=== PATIENT | female | born 1995 ===

== ENCOUNTER 2016-07-30 11:54 | Observation (INO) | payer OTHER ==
[2016-07-30 11:55] VITALS: BMI 24.9
[2016-07-30] MEDS ORDERED: Sodium Chloride 0.9% 1,000 ML IV ONE (12:20)
--- NOTE | 2016-07-30 12:28 | C.PDOC ---
History Of Present Illness Patient is a 20 y/o female, with PMHx of IDDM, that presents to the ED for evaluation of right flank pain associated with nausea and vomiting since yesterday. Pt notes multiple episodes of watery vomitous. Denies taking any OTC meds. Patient was admitted x 2 in April for pyelonephritis, with MRI showing possible small abscess in the right kidney. Patient was discharged home, with IV antibiotics. Otherwise, denies any diarrhea, urinary symptoms or any other associated symptoms. Time Seen by Provider: 07/30/16 12:09 Chief Complaint (Nursing): Abdominal Pain History Per: Patient History/Exam Limitations: no limitations Onset/Duration Of Symptoms: Days (1) Current Symptoms Are (Timing): Still Present Radiation Of Pain To:: Flank (right) Quality Of Discomfort: "Pain" Associated Symptoms: Nausea, Vomiting, Loss Of Appetite. denies: Chills, Diarrhea, Chest Pain, Constipation, Urinary Symptoms Exacerbating Factors: None Alleviating Factors: None Recent travel outside of the [place]: No Additional History Per: Patient Abnormal Vaginal Bleeding: No Past Medical History Reviewed: Historical Data, Nursing Documentation, Vital Signs Vital Signs: Last Vital Signs Temp 98.6 F 07/31/16 15:00 Pulse 93 H 07/31/16 15:00 Resp 20 07/31/16 15:00 BP 143/88 07/31/16 15:00 Pulse Ox 100 08/01/16 09:23 - Medical History PMH: Asthma, Diabetes (type 1) Other PMH: Pyelonephritis - [facility] Procedures FLUOROSCOPY OF SUPERIOR VENA CAVA, GUIDANCE (05/11/16) INFLUENZA VACCINATION (04/18/14) INJECT INSULIN (02/05/15) INJECT/INFUSE NEC (02/05/15) INSERTION OF INFUSION DEV INTO SUP VENA CAVA, PERC APPROACH (05/11/16) INTRODUCTION OF SERUM/TOX/VACCINE INTO MUSCLE, PERC APPROACH (04/11/16) ULTRASONOGRAPHY OF RIGHT UPPER EXTREMITY VEINS, GUIDANCE (05/11/16) Family History: States: Unknown Family Hx - Social History Hx Tobacco Use: No Hx Alcohol Use: No Hx Substance Use: No - Immunization History Hx Tetanus Toxoid Vaccination: Yes Review Of Systems Except As Marked, All Systems Reviewed And Found Negative. Constitutional: Negative for: Fever, Chills Gastrointestinal: Positive for: Nausea, Vomiting. Negative for: Diarrhea, Constipation Genitourinary: Negative for: Dysuria, Frequency, Hematuria Musculoskeletal: Positive for: Back Pain (right flank pain) Physical Exam - Physical Exam Appears: Non-toxic, In Acute Distress (In moderate distress) Skin: Normal Color, Warm, Dry Head: Atraumatic, Normacephalic Eye(s): bilateral: Normal Inspection Neck: Supple Chest: Symmetrical Cardiovascular: Rhythm Regular Respiratory: Normal Breath Sounds, No Rales, No Rhonchi, No Wheezing Gastrointestinal/Abdominal: Soft, No Tenderness Back: CVA Tenderness (right) Neurological/Psych: Oriented x3, Normal Speech, Normal Cognition ED Course And Treatment - Laboratory Results Result Diagrams: 07/30/16 13:01 07/30/16 13:01 O2 Sat by Pulse Oximetry: 100 (on RA) Pulse Ox Interpretation: Normal - Radiology CXR: Interpreted by Me CXR Interpretation: No: Infiltrates Progress Note: Labs, CXR ordered and reviewed. Patient was treated with IV fluids, Zofran inj, Pepcid IVP, and Toradol IVP. On reassessment, patient reports no vomiting pain improved. Medical Decision Making Medical Decision Making: Review of old records show cultures grew e coli, sensitive, to most abx Started on rocephin In view of the ? of abscess and recurrent infection will need need admission for further treatment Case discussed with dr César Rodriguez (covering) dr Espinal, she agrees with plan Disposition - Disposition Disposition: HOSPITALIZED Disposition Time: 00:00 Condition: FAIR - Clinical Impression Clinical Impression: Abdominal pain, Insulin dependent diabetes mellitus, Pyelonephritis - Scribe Statement The provider has reviewed the documentation as recorded by the Nasra Sotomayor Provider Attestation: All medical record entries made by the Nasra were at my direction and personally dictated by me. I have reviewed the chart and agree that the record accurately reflects my personal performance of the history, physical exam, medical decision making, and the department course for this patient. I have also personally directed, reviewed, and agree with the discharge instructions and disposition.
[2016-07-30] MEDS ORDERED: Sodium Chloride 0.9% 1,000 ML ONE (12:31)
[2016-07-30 12:58] LABS: VENOUS BLOOD GAS PCO2 52 mmHg (40-60)
[2016-07-30 13:05] LABS: BASO # 0.1 K/uL (0.0-0.2); BASO % 0.7 % (0.0-2.0); HEMATOCRIT 40.2 % (34.0-47.0); LYMPH # 1.8 K/uL (1.0-4.3); LYMPH % 11.8 % (20.0-40.0); MEAN CELL VOLUME 88.5 fL (81.0-99.0); MEAN CORPUSCULAR HEMOGLOBIN 31.4 pg (27.0-31.0); MEAN CORPUSCULAR HGB CONC 35.5 g/dL (33.0-37.0); MEAN PLATELET VOLUME 7.7 fL (7.2-11.7); MONO # 0.8 K/uL (0.0-0.8); NRBC % 0.1 % (0.0-2.0); RED CELL DISTRIBUTION WIDTH 13.3 % (11.5-14.5); WHITE BLOOD COUNT 15.7 K/uL (4.8-10.8)
[2016-07-30 13:23] LABS: RBC URINE 16 /hpf (0-3); URINE BACTERIA RARE (<OCC); URINE BILIRUBIN NEGATIVE (NEGATIVE); URINE BLOOD 2+ (NEGATIVE); URINE COLOR Yellow (YELLOW); URINE GLUCOSE (UA) NORMAL (Normal); URINE KETONE 1+ mg/dL (NEGATIVE); URINE LEUKOCYTE ESTERASE TRACE Leu/uL (Negative); URINE PROTEIN 2+ mg/dL (NEGATIVE); WBC URINE 13 /hpf (0-5)
[2016-07-30 13:25] LABS: CHLORIDE 93 mmol/L (98-107); SODIUM 142 mmol/L (132-148)
[2016-07-30 13:28] LABS: ALB/GLOB RATIO 1.2 (1.0-2.1); ALKALINE PHOSPHATASE 76 U/L (38-126); ALT/SGPT 38 U/L (9-52); AST/SGOT 36 U/L (14-36); BILIRUBIN,TOTAL 2.2 mg/dL (0.2-1.3); BLOOD UREA NITROGEN 9 mg/dL (7-17); CARBON DIOXIDE 29 mmol/L (22-30); GFR AFRICAN-AMERICAN > 60; GLUCOSE,RANDOM 152 mg/dL (65-105); TOTAL PROTEIN 8.3 g/dL (6.3-8.3)
[2016-07-30 13:29] LABS: CALCIUM 8.5 mg/dl (8.6-10.4)
--- NOTE | 2016-07-30 13:29 | RAD ---
PROCEDURE: CHEST RADIOGRAPH, 1 VIEW HISTORY: Diabetic COMPARISON: Comparison is made to the previous study dated 02/06/2016 FINDINGS: LUNGS: No evidence of new infiltrate or consolidation in the lungs PLEURA: No pneumothorax or pleural fluid seen. CARDIOVASCULAR: Normal. OSSEOUS STRUCTURES: No significant abnormalities. VISUALIZED UPPER ABDOMEN: Normal. OTHER FINDINGS: None. IMPRESSION: No active disease.
[2016-07-30 13:33] LABS: POTASSIUM 3.5 mmol/L (3.6-5.2)
[2016-07-30] MEDS ORDERED: cefTRIAXone IV 1 gm in Dextros 1 GM in Dextrose 5% In Water 50 ML IVPB STA (13:36)
[2016-07-30] MEDS ORDERED: cefTRIAXone IV 1 gm in Dextros 50 ML IVPB ONE (14:10)
[2016-07-30] MEDS: Sodium Chloride 0.45% 1,000 ML IV SCH (14:46)
[2016-07-30 16:34] VITALS: RESP 20
[2016-07-30] MEDS: (Novolog) Insulin Aspart, Recombinant 100 u/ml 10 ml vial SC SCH (18:51)
[2016-07-30] MEDS ORDERED: (Lantus) Insulin Glargine, Recombinant SC SCH (22:00)
[2016-07-31] MEDS: Sodium Chloride 0.45% 1,000 ML IV SCH ×2 (05:00→17:35)
[2016-07-31] MEDS: (Novolog) Insulin Aspart, Recombinant 100 u/ml 10 ml vial SC SCH (09:06)
--- NOTE | 2016-07-31 09:36 | CT ---
PROCEDURE: CT Abdomen and Pelvis without intravenous contrast HISTORY: dx pyelonephritis COMPARISON: 03/30/2016 TECHNIQUE: Multidetector CT scan of the abdomen and pelvis was performed without administration of intravenous contrast. Oral contrast was not administered. Coronal and sagittal reformatted images were obtained. Radiation dose: Total exam DLP = 778.29 mGy-cm. FINDINGS: LOWER THORAX: The lung bases are clear. LIVER: The liver is normal in size. No gross lesion or ductal dilatation. GALLBLADDER AND BILE DUCTS: No calcified gallstones. PANCREAS: Normal in size. No gross lesion or ductal dilatation. SPLEEN: Normal in size. ADRENALS: Both adrenal glands are normal in size without discrete nodule. KIDNEYS AND URETERS: Both kidneys are normal in size. There is mild perinephric stranding in the inferior pole of the right kidney. No hydronephrosis. No solid mass. VASCULATURE: Normal in caliber. No aortic aneurysm. BOWEL: Normal in caliber. No obstruction. No gross mural thickening. APPENDIX: Normal appendix. PERITONEUM: No free fluid. No free air. LYMPH NODES: No enlarged lymph nodes. BLADDER: Decompressed. REPRODUCTIVE: The uterus is normal in size. There are no adnexal mass. BONES: No acute fracture. 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 OTHER FINDINGS: None. IMPRESSION: Please note this examination is limited in the absence of intravenous contrast, specifically the clinical question of pyelonephritis cannot be definitively answered on the CT examination in the absence of intravenous contrast. Mild right lower pole perinephric stranding could represent pyelonephritis in the appropriate clinical setting. No evidence of hydronephrosis or nephrolithiasis.
[2016-07-31] MEDS ORDERED: Potassium Chloride 10 mEq 100 ML IVPB ONE (11:44)
[2016-07-31] MEDS ORDERED: cefTRIAXone IV 1 gm in Dextros 1 GM in Dextrose 5% In Water 50 ML IVPB SCH (11:45)
[2016-07-31] MEDS ORDERED: cefTRIAXone IV 1 gm in Dextros 50 ML IVPB SCH (13:00)
[2016-07-31 17:03] VITALS: BP 143/88; PULSE 93; TEMP 98.6
[2016-07-31] MEDS ORDERED: Benzocaine/Menthol (Cepacol) Lozenge MT SCH (18:00)
--- NOTE | 2016-07-31 18:18 | CON ---
DATE: 07/31/2016 The patient is a 20-year-old was admitted for the second time during last month with right flank pain radiating to the back. The patient was here in the hospital 1 month ago with pyelonephritis, vomiti ng, and flank pain. Treated, discharged, came back with the same symptoms. The patient has no dysur ia, or frequency, or urgency prior to this admission. Two days ago the patient started having right flank pain and vomiting. White count elevated. Urine showed few WBC and RBCs. PHYSICAL EXAMINATION: ABDOMEN: Soft. Right flank tenderness. No kidney palpable. CT scan of the abdomen and pelvis revealed some inflammation in the lower pole of the right kidney. The rest of the kidney normal. No evidence of any abscess. The patient on treatment with Rocephin. IMPRESSION: Right pyelonephritis. PLAN: Continue treatment, and patient needs to have a followup culture, and treat the patient until all the symptoms subside. Doretha Buck MD cc: 43 TT: 07/31/2016 18:17:50 Confirmation # [id number] Dictation # [id number] ned
--- NOTE | 2016-07-31 18:28 | CP.PCM.HP ---
History of Present Illness - History of Present Illness History of Present Illness: came in to er pain flank nase[place] and vomiting last night was admited for uti Present on Admission - Present on Admission Any Indicators Present on Admission: No Review of Systems - Review of Systems Systems not reviewed;Unavailable: Acuity of Condition - Constitutional Constitutional: Fatigue - EENT Eyes: As Per HPI Ears: As Per HPI Nose/Mouth/Throat: As Per HPI, Sore Throat - Breasts Breasts: As Per HPI - Cardiovascular Cardiovascular: As Per HPI - Respiratory Respiratory: As Per HPI - Gastrointestinal Gastrointestinal: Abdominal Pain - Genitourinary Genitourinary: Dysuria, Freq UTI - Reproductive: Female Reproductive:Female: As Per HPI - Menstruation Menstruation: As Per HPI - Musculoskeletal Musculoskeletal: As Per HPI - Integumentary Integumentary: As Per HPI - Neurological Neurological: As Per HPI - Psychiatric Psychiatric: As Per HPI - Endocrine Endocrine: Polyuria - Hematologic/Lymphatic Hematologic: As Per HPI Past Patient History - Infectious Disease Hx of Infectious Diseases: None - Tetanus Immunizations Tetanus Immunization: Unknown - Past Medical History & Family History Past Medical History?: Yes - Past Social History Smoking Status: Never Smoked - CARDIAC Hx Cardiac Disorders: No Hx Atrial Fibrillation: No Hx Cardia Arrhythmia: No Hx Congestive Heart Failure: No - PULMONARY Hx Respiratory Disorders: Yes Hx Asthma: Yes - NEUROLOGICAL Hx Neurological Disorder: No - HEENT Hx HEENT Problems: No - RENAL Hx Chronic Kidney Disease: Yes (''KIDNEY INFECTION'') Hx Dialysis: No Hx Kidney Stones: No Hx Neurogenic Bladder: No Hx Pyelonephritis: Yes - ENDOCRINE/METABOLIC Hx Endocrine Disorders: Yes Hx Diabetes Mellitus Type 1: Yes - HEMATOLOGICAL/ONCOLOGICAL Hx Blood Disorders: No Hx Human Immunodeficiency Virus (HIV): No - INTEGUMENTARY Hx Dermatological Problems: No - MUSCULOSKELETAL/RHEUMATOLOGICAL Hx Musculoskeletal Disorders: No Hx Falls: No - GASTROINTESTINAL Hx Gastrointestinal Disorders: Yes Hx Nausea: Yes Hx Vomiting: Yes - GENITOURINARY/GYNECOLOGICAL Hx Genitourinary Disorders: Yes Hx Urinary Tract Infection: Yes - PSYCHIATRIC Hx Psychophysiologic Disorder: No Hx Substance Use: No - SURGICAL HISTORY Hx Surgeries: No - ANESTHESIA Hx Anesthesia: No Hx Anesthesia Reactions: No Hx Malignant Hyperthermia: No Has any member of the family had a problem w/ anesthesia?: No Meds Allergies/Adverse Reactions: Allergies Allergy/AdvReac Type Severity Reaction Status Date / Time shellfish derived Allergy SWELLING Verified 03/05/17 12:03 Physical Exam - Constitutional Appears: Non-toxic - Head Exam Head Exam: ATRAUMATIC - Eye Exam Eye Exam: Normal appearance Pupil Exam: Fixed - ENT Exam ENT Exam: Mucous Membranes Moist - Neck Exam Neck exam: Positive for: Full Rom - Respiratory Exam Respiratory Exam: Clear to Auscultation Bilateral - Cardiovascular Exam Cardiovascular Exam: REGULAR RHYTHM - GI/Abdominal Exam GI & Abdominal Exam: Normal Bowel Sounds, Tenderness (ruq ) - Rectal Exam Rectal Exam: NORMAL INSPECTION - Exam Exam: NORMAL INSPECTION Results - Vital Signs Recent Vital Signs: Last Vital Signs Temp 98.6 F 07/31/16 15:00 Pulse 93 H 07/31/16 15:00 Resp 20 07/31/16 15:00 BP 143/88 07/31/16 15:00 Pulse Ox 98 07/31/16 15:00 - Labs Result Diagrams: 07/30/16 13:01 07/30/16 13:01 Labs: Laboratory Results - last 24 hr 07/30/16 07/31/16 07/31/16 21:08 07:28 11:34 POC Glucose (mg/dL) 153 H 136 H 140 H 07/31/16 16:46 POC Glucose (mg/dL) 178 H Assessment & Plan - Assessment and Plan (Free Text) Assessment: uti abd pain - Date & Time Date: 07/31/16 Time: 18:32
[2016-08-01 09:16] VITALS: O2SAT 100
[2016-08-01] MEDS ORDERED: Pneumococcal 23-Valent Vaccine IM ONE (10:00)
[2016-08-01] MEDS ORDERED: Influenza Virus Vaccine 45 mcg/0.5 ml Syr IM ONE (10:00)
== END 2016-07-31 18:30 | disposition left against medical advice (07) ==
LOC: C.ER 11:54 → C.9E 13:42 → INTOOBSV 13:42 → C.3T 14:46
PROVIDERS: ADMIT Internal Medicine; ATTEND Internal Medicine
DX: N39.0 Urinary tract infection, site not specified (principal); N11.9 Chronic tubulo-interstitial nephritis, unspecified; E10.9 Type 1 diabetes mellitus without complications; J45.909 Unspecified asthma, uncomplicated; Z79.4 Long term (current) use of insulin; Z87.440 Personal history of urinary (tract) infections
CPT/HCPCS: 71010; 74176; 80053; 81001; 82009; 82803; 82948; 84703; 85025; 87040; 87086; 96361; 96365; 96375; 99285; C9113; G0378; J0696; J1885; J2270; J2405; J3480; J7030; J7040

== ENCOUNTER 2016-09-23 13:35 | Inpatient (IN) | payer MEDICAID, OTHER ==
[2016-09-23 13:36] VITALS: BMI 24.9
[2016-09-23] MEDS ORDERED: Sodium Chloride 0.9% 1,000 ML IV STA (14:20)
[2016-09-23 14:28] LABS: RBC URINE 2 /hpf (0-3); URINE BILIRUBIN NEGATIVE (NEGATIVE); URINE BLOOD NEGATIVE (NEGATIVE); URINE COLOR Amber (YELLOW); URINE GLUCOSE (UA) NORMAL (Normal); URINE KETONE NEGATIVE (NEGATIVE); URINE LEUKOCYTE ESTERASE NEG Leu/uL (Negative); URINE PROTEIN 2+ mg/dL (NEGATIVE); WBC URINE 1 /hpf (0-5)
[2016-09-23] MEDS ORDERED: Morphine 4 MG/ML VIAL ONE (14:29)
[2016-09-23 14:34] LABS: BASO % 0.3 % (0.0-2.0); EOS % 0.1 % (0.0-4.0); HEMATOCRIT 43.2 % (34.0-47.0); LYMPH # 1.2 K/uL (1.0-4.3); LYMPH % 9.6 % (20.0-40.0); MEAN CELL VOLUME 89.8 fL (81.0-99.0); MEAN CORPUSCULAR HEMOGLOBIN 30.9 pg (27.0-31.0); MEAN CORPUSCULAR HGB CONC 34.4 g/dL (33.0-37.0); MEAN PLATELET VOLUME 8.3 fL (7.2-11.7); MONO # 0.6 K/uL (0.0-0.8); MONO % 4.8 % (0.0-10.0); PLATELET COUNT 271 K/uL (130-400); RED CELL DISTRIBUTION WIDTH 14.3 % (11.5-14.5)
[2016-09-23 14:42] LABS: CHLORIDE 93 mmol/L (98-107)
[2016-09-23 14:43] LABS: ABG ALLEN TEST N; DRAW SITE VBG; POTASSIUM 3.7 mmol/L (3.6-5.2); SODIUM 139 mmol/L (132-148); VENOUS BLOOD GAS BASE EXCESS 9.6 mmol/L (0.0-2.0); VENOUS BLOOD GAS PCO2 61 mmHg (40-60); VENOUS BLOOD PH 7.39 (7.32-7.43)
[2016-09-23 14:45] LABS: ALB/GLOB RATIO 1.3 (1.0-2.1); AMYLASE 108 U/L (30-110); AST/SGOT 39 U/L (14-36); BILIRUBIN,TOTAL 1.3 mg/dL (0.2-1.3); BLOOD UREA NITROGEN 10 mg/dL (7-17); CARBON DIOXIDE 31 mmol/L (22-30); GFR AFRICAN-AMERICAN > 60; TOTAL PROTEIN 8.3 g/dL (6.3-8.3)
[2016-09-23 14:46] LABS: ALKALINE PHOSPHATASE 54 U/L (38-126); ALT/SGPT 24 U/L (9-52); GLUCOSE,RANDOM 239 mg/dL (65-105)
[2016-09-23 15:34] LABS: NEUTROPHIL 91 % (50-75); TOTAL CELLS COUNTED 100
--- NOTE | 2016-09-23 16:03 | C.PDOC ---
History Of Present Illness 20 year old female presents to the ED with complaints of right flank pain, weakness, and nausea for one week. She is well known to this ED, she is diabetic and has multiple admission for myelo arthritis. Patient states urine is cloudy and denies fever, or any other complaints at this time. Chief Complaint (Nursing): Female Genitourinary History Per: Patient History/Exam Limitations: no limitations Onset/Duration Of Symptoms: Days (one week ) Current Symptoms Are (Timing): Still Present Recent travel outside of the [place]: No PMH Reviewed: Historical Data, Nursing Documentation, Vital Signs - Medical History PMH: GI Disorders, Resp Disorders Denies: Neuro Disorder, HEENT Problems, MS Disorders - Family History Family History: States: Unknown Family Hx - Immunization History Hx Tetanus Toxoid Vaccination: Yes Hx Influenza Vaccination: No Hx Pneumococcal Vaccination: No Review Of Systems Constitutional: Positive for: Weakness. Negative for: Fever, Chills, Sweats Gastrointestinal: Positive for: Nausea. Negative for: Vomiting, Diarrhea Genitourinary: Positive for: Other (patient notes cloudy urine ) Musculoskeletal: Positive for: Back Pain (right flank pain ). Negative for: Shoulder Pain ED Course And Treatment - Laboratory Results Result Diagrams: 09/23/16 14:30 09/23/16 14:30 O2 Sat by Pulse Oximetry: 100
--- NOTE | 2016-09-23 16:09 | US ---
HISTORY: RUQ/flank pain COMPARISON: CT abdomen and pelvis without contrast performed 07/31/16 TECHNIQUE: Sonographic evaluation of the right upper quadrant of the abdomen. FINDINGS: Examination limited by bowel gas. LIVER: Measures 19.1 cm in length. Echogenic liver may be seen in setting of hepatic parenchymal disease or fatty infiltration. No focal hepatic mass identified. The main portal vein appears patent with normal directional flow. No intrahepatic bile duct dilatation. GALLBLADDER: Gallstones. Gallbladder wall appears top normal in thickness measuring approximately 3 mm. Positive sonographic Mcrae's sign as assessed by the oxide furnace tender. COMMON BILE DUCT: Measures 7 mm, mildly dilated. PANCREAS: Not well-visualized. RIGHT KIDNEY: Measures 14.2 x 3.4 x 4.1 cm. No obstructing calculus or hydronephrosis. AORTA: Limited visualization appears grossly unremarkable. IVC: Limited visualization appears grossly unremarkable. OTHER FINDINGS: None . IMPRESSION: Hepatomegaly. Echogenic liver may be seen in setting of hepatic parenchymal disease or fatty infiltration. Cholelithiasis. Minimally dilated common bile duct. Positive sonographic Mcrae's sign as assessed by the oxide furnace tender. Correlate clinically.
--- NOTE | 2016-09-23 16:16 | C.PDOC ---
History Of Present Illness 20 year old female presents to the ED with complaints of right flank pain, weakness, and nausea for one week. She is well known to this ED, she is diabetic , has a history of gall stones, and has multiple admission for myelo arthritis with the last admission at the beginning of July. Patient states urine is cloudy and denies fever, or any other complaints at this time. Chief Complaint (Nursing): Female Genitourinary History Per: Patient History/Exam Limitations: no limitations Onset/Duration Of Symptoms: Days Current Symptoms Are (Timing): Still Present Past Medical History Reviewed: Historical Data, Nursing Documentation, Vital Signs Vital Signs: Last Vital Signs Temp 98.2 F 09/23/16 13:52 Pulse 88 09/23/16 17:03 Resp 18 09/23/16 17:03 BP 150/93 H 09/23/16 17:03 Pulse Ox 99 09/23/16 17:03 - Medical History PMH: Asthma, Diabetes (type 1), Chronic Kidney Disease (''KIDNEY INFECTION'') - [facility] Procedures FLUOROSCOPY OF SUPERIOR VENA CAVA, GUIDANCE (05/11/16) INFLUENZA VACCINATION (04/18/14) INJECT INSULIN (02/05/15) INJECT/INFUSE NEC (02/05/15) INSERTION OF INFUSION DEV INTO SUP VENA CAVA, PERC APPROACH (05/11/16) INTRODUCTION OF SERUM/TOX/VACCINE INTO MUSCLE, PERC APPROACH (04/11/16) ULTRASONOGRAPHY OF RIGHT UPPER EXTREMITY VEINS, GUIDANCE (05/11/16) Family History: States: Unknown Family Hx - Social History Hx Tobacco Use: No Hx Alcohol Use: No Hx Substance Use: No - Immunization History Hx Tetanus Toxoid Vaccination: Yes Hx Influenza Vaccination: No Hx Pneumococcal Vaccination: No Review Of Systems Constitutional: Negative for: Fever, Chills, Sweats Gastrointestinal: Positive for: Nausea. Negative for: Vomiting, Diarrhea Genitourinary: Positive for: Other (patient notes cloudy urine) Musculoskeletal: Positive for: Back Pain (right flank pain) Physical Exam - Physical Exam Appears: Non-toxic, No Acute Distress Skin: Warm, Dry Head: Normacephalic Eye(s): bilateral: Normal Inspection Oral Mucosa: Moist Neck: Normal ROM, Supple Chest: Symmetrical, No Deformity Cardiovascular: Rhythm Regular Respiratory: No Accessory Muscle Use, No Rales, No Rhonchi, No Stridor, No Wheezing Gastrointestinal/Abdominal: Soft, No Tenderness, No Distention, No Guarding, No Rebound Extremity: Normal ROM, No Tenderness Neurological/Psych: Oriented x3 ED Course And Treatment - Laboratory Results Result Diagrams: 09/23/16 14:30 09/23/16 14:30 O2 Sat by Pulse Oximetry: 100 - CT Scan/US US ABDOMEN LIMITED Other Rad Studies (CT/US): Read By Radiologist, Radiology Report Reviewed CT/US Interpretation: HISTORY: RUQ/flank pain. COMPARISON: CT abdomen and pelvis without contrast performed 07/31/16. TECHNIQUE: Sonographic evaluation of the right upper quadrant of the abdomen. FINDINGS: Examination limited by bowel gas. LIVER: Measures 19.1 cm in length. Echogenic liver may be seen in setting of hepatic parenchymal disease or fatty infiltration. No focal hepatic mass identified. The main portal vein appears patent with normal directional flow. No intrahepatic bile duct dilatation. GALLBLADDER: Gallstones. Gallbladder wall appears top normal in thickness measuring approximately 3 mm. Positive sonographic Mcrae's sign as assessed by the passenger elevator operator. COMMON BILE DUCT: Measures 7 mm, mildly dilated. PANCREAS: Not well-visualized. RIGHT KIDNEY: Measures 14.2 x 3.4 x 4.1 cm. No obstructing calculus or hydronephrosis. AORTA: Limited visualization appears grossly unremarkable. IVC: Limited visualization appears grossly unremarkable. OTHER FINDINGS: None . IMPRESSION: Hepatomegaly. Echogenic liver may be seen in setting of hepatic parenchymal disease or fatty infiltration. Cholelithiasis. Minimally dilated common bile duct. Positive sonographic Mcrae's sign as assessed by the passenger elevator operator. Correlate clinically. Progress Note: was contacted, accepted patient to her service. - Physician Consult Information Physician Contacted: Juventino Green Outcome Of Conversation: admit to medicine, will come as a consult Disposition - Disposition Disposition: HOSPITALIZED Disposition Time: 16:42 Condition: FAIR - Clinical Impression Clinical Impression: Vomiting, RUQ abdominal pain, Cholelithiasis Decision To Admit - Pt Status Changed To: Hospital Disposition Of: Observation - . Bed Request Type: Regular Admitting Physician: Elyssa Rodriguez Patient Diagnosis: Vomiting, RUQ abdominal pain, Cholelithiasis
[2016-09-23] MEDS: (Novolog) Insulin Aspart, Recombinant 100 u/ml 10 ml vial SC SCH ×2 (19:27→22:01)
--- NOTE | 2016-09-23 21:30 | CP.PCM.CON ---
<Rigo Biggs - Last Filed: 09/23/16 22:47> History of Present Illness - History of Present Illness History of Present Illness: General Surgery Consult Re: Cholelithiasis HPI: 20F presented to ER C/O R flank pain, weakness, and nausea x 1 week. Stated pain was similar to prior episodes of pyelonephritis. Pain now in more epigastric and RUQ. Currently denies F/C, N/V/D. Last BM 3days ago, was normal. Pt has no other C/O at this time. PMH: Hx Pyelonephritis, Asthma, DM type 1, Hx of cholelithiasis PSH: Denies SH: Smokes 2 cigarettes/day, occasional EtOH, no drug use All: NKDA Meds: See MAR Review of Systems - Review of Systems All systems: reviewed and no additional remarkable complaints except (as per HPI ) Past Patient History - Infectious Disease Hx of Infectious Diseases: None - Tetanus Immunizations Tetanus Immunization: Unknown - Past Medical History & Family History Past Medical History?: Yes - Past Social History Smoking Status: Never Smoked - CARDIAC Hx Cardiac Disorders: No Hx Atrial Fibrillation: No Hx Cardia Arrhythmia: No Hx Congestive Heart Failure: No - PULMONARY Hx Asthma: Yes - NEUROLOGICAL Hx Neurological Disorder: No - HEENT Hx HEENT Problems: No - RENAL Hx Chronic Kidney Disease: Yes (''KIDNEY INFECTION'') - ENDOCRINE/METABOLIC Hx Endocrine Disorders: Yes Hx Diabetes Mellitus Type 1: Yes - HEMATOLOGICAL/ONCOLOGICAL Hx Blood Disorders: No - INTEGUMENTARY Hx Dermatological Problems: No - MUSCULOSKELETAL/RHEUMATOLOGICAL Hx Musculoskeletal Disorders: No Hx Falls: No - GASTROINTESTINAL Hx Gastrointestinal Disorders: Yes Hx Nausea: Yes Hx Vomiting: Yes - GENITOURINARY/GYNECOLOGICAL Hx Genitourinary Disorders: Yes Hx Urinary Tract Infection: Yes - PSYCHIATRIC Hx Substance Use: No - SURGICAL HISTORY Hx Surgeries: No - ANESTHESIA Hx Anesthesia: No Hx Anesthesia Reactions: No Hx Malignant Hyperthermia: No Meds Allergies/Adverse Reactions: Allergies Allergy/AdvReac Type Severity Reaction Status Date / Time shellfish derived Allergy SWELLING Verified 07/31/16 20:39 - Medications Medications: Current Medications Ceftriaxone Sodium 1 gm/ (Sodium Chloride) 100 mls @ 100 mls/hr IVPB DAILY [facility] Insulin Aspart (Novolog) 3 unit SC ACHS [facility] Last Admin: 09/23/16 19:27 Dose: 3 unit Insulin Glargine (Lantus) 10 unit SC HS [facility] Morphine Sulfate (Morphine) 1 mg IV Q6 PRN Last Admin: 09/23/16 19:28 Dose: 1 mg Physical Exam - Constitutional Appears: Non-toxic, No Acute Distress - Head Exam Head Exam: ATRAUMATIC, NORMOCEPHALIC - Eye Exam Eye Exam: EOMI. absent: Scleral icterus - ENT Exam ENT Exam: Mucous Membranes Moist Additional comments: trachea midline - Respiratory Exam Respiratory Exam: NORMAL BREATHING PATTERN. absent: Respiratory Distress - Cardiovascular Exam Cardiovascular Exam: RRR, +S1, +S2 - GI/Abdominal Exam GI & Abdominal Exam: Guarding (mildRUQ), Soft, Tenderness (in RUQ and epigastrum ). absent: Distended, Firm, Rebound, Rigid - Rectal Exam Rectal Exam: Deferred - Extremities Exam Extremities exam: Positive for: normal capillary refill. Negative for: calf tenderness, pedal edema - Back Exam Back exam: absent: CVA tenderness (L), CVA tenderness (R) - Neurological Exam Neurological exam: Alert, Oriented x3 - Psychiatric Exam Psychiatric exam: Normal Affect, Normal Mood - Skin Skin Exam: Dry, Warm Results - Vital Signs Recent Vital Signs: Last Vital Signs Temp 98.2 F 09/23/16 13:52 Pulse 88 09/23/16 17:03 Resp 18 09/23/16 17:03 BP 150/93 H 09/23/16 17:03 Pulse Ox 100 09/23/16 18:01 - Labs Result Diagrams: 09/23/16 14:30 09/23/16 14:30 Labs: Laboratory Results - last 24 hr 09/23/16 17:37 POC Glucose (mg/dL) 208 H - Imaging and Cardiology US - abdomen Status: Image reviewed by me, Report reviewed by me Assessment & Plan - Assessment and Plan (Free Text) Assessment: 20F with cholelithiasis, r/o cholecystitis Plan: F/U HIDA scan Cont Abx IVF NPO AM Labs Analgesia Roxyfran D/W Dr. Peter Biggs PGY3 <Juventino Green - Last Filed: 09/27/16 21:28> Results - Vital Signs Recent Vital Signs: Last Vital Signs Temp 98 F 09/27/16 16:00 Pulse 84 09/27/16 16:00 Resp 20 09/27/16 16:00 BP 122/81 09/27/16 16:00 Pulse Ox 98 09/27/16 16:00 - Labs Result Diagrams: 09/27/16 07:32 09/26/16 08:04 Labs: Laboratory Results - last 24 hr 09/26/16 09/27/16 09/27/16 21:38 06:47 07:32 WBC 8.9 RBC 3.92 Hgb 12.4 Hct 35.6 MCV 90.8 MCH 31.7 H MCHC 34.9 RDW 14.2 Plt Count 208 MPV 8.3 Neut % (Auto) 63.8 Lymph % (Auto) 28.6 Mcduffie % (Auto) 6.9 Eos % (Auto) 0.3 Baso % (Auto) 0.4 Neut # 5.7 Lymph # 2.5 Mcduffie # 0.6 Eos # 0.0 Baso # 0.0 POC Glucose (mg/dL) 246 H 183 H 09/27/16 09/27/16 11:43 16:07 WBC RBC Hgb Hct MCV MCH MCHC RDW Plt Count MPV Neut % (Auto) Lymph % (Auto) Mcduffie % (Auto) Eos % (Auto) Baso % (Auto) Neut # Lymph # Mcduffie # Eos # Baso # POC Glucose (mg/dL) 105 172 H Attending/Attestation - Attestation I have personally seen and examined this patient.: Yes I have fully participated in the care of the patient.: Yes I have reviewed all pertinent clinical information: Yes Notes (Text): 09/27/16 21:28 Pt was seen and examined at bedside on 09/23/16 Agree with above note and assessment Pt with Acute Cholecystitis with Cholelithiasis with Morbid Obesity Uncontrolled DM and Hepatomegaly HIDA scan NPO,IVF Plan d.w pt and primary team in detail We will f.u
[2016-09-23] MEDS ORDERED: (Lantus) Insulin Glargine, Recombinant SC SCH (22:58)
[2016-09-23] MEDS: (Lantus) Insulin Glargine, Recombinant SC SCH (23:11)
[2016-09-23] MEDS ORDERED: Morphine 4 MG/ML VIAL IVP PRN (23:11)
[2016-09-23] MEDS: Morphine 4 MG/ML VIAL IVP PRN (23:46)
[2016-09-23] MEDS: Sodium Chloride 0.9% 1,000 ML IV SCH (23:46)
[2016-09-24] MEDS: Morphine 4 MG/ML VIAL IVP PRN ×5 (04:13→22:26)
[2016-09-24] MEDS: (Novolog) Insulin Aspart, Recombinant 100 u/ml 10 ml vial SC SCH ×4 (08:00→21:30)
[2016-09-24 08:06] LABS: BASO % 0.3 % (0.0-2.0); EOS # 0.1 K/uL (0.0-0.7); EOS % 0.7 % (0.0-4.0); HEMATOCRIT 37.5 % (34.0-47.0); LYMPH # 2.1 K/uL (1.0-4.3); LYMPH % 25.1 % (20.0-40.0); MEAN CELL VOLUME 90.1 fL (81.0-99.0); MEAN CORPUSCULAR HEMOGLOBIN 31.5 pg (27.0-31.0); MEAN PLATELET VOLUME 8.3 fL (7.2-11.7); MONO # 0.6 K/uL (0.0-0.8); MONO % 7.1 % (0.0-10.0); RED CELL DISTRIBUTION WIDTH 14.2 % (11.5-14.5); WHITE BLOOD COUNT 8.5 K/uL (4.8-10.8)
[2016-09-24 08:23] LABS: CHLORIDE 99 mmol/L (98-107); SODIUM 140 mmol/L (132-148)
[2016-09-24 08:24] LABS: POTASSIUM 3.2 mmol/L (3.6-5.2)
[2016-09-24 08:26] LABS: ALB/GLOB RATIO 1.2 (1.0-2.1); ALKALINE PHOSPHATASE 42 U/L (38-126); ALT/SGPT 23 U/L (9-52); AST/SGOT 28 U/L (14-36); BILIRUBIN,TOTAL 1.1 mg/dL (0.2-1.3); BLOOD UREA NITROGEN 10 mg/dL (7-17); CARBON DIOXIDE 27 mmol/L (22-30); GFR AFRICAN-AMERICAN > 60; GLUCOSE,RANDOM 154 mg/dL (65-105); TOTAL PROTEIN 6.4 g/dL (6.3-8.3)
[2016-09-24 08:27] LABS: CALCIUM 8.2 mg/dl (8.6-10.4)
--- NOTE | 2016-09-24 10:10 | CP.PCM.PN ---
<Rigo Biggs - Last Filed: 09/24/16 10:06> Subjective - Date & Time of Evaluation Date of Evaluation: 09/24/16 Time of Evaluation: 07:40 - Subjective Subjective: General Surgery Pt S&E, NAEO. Pain improving. Awaiting HIDA scan No other C/O Objective - Vital Signs/Intake and Output Vital Signs (last 24 hours): Temp Pulse Resp BP Pulse Ox 97.5 F L 87 20 125/80 98 09/24/16 08:09 09/24/16 08:09 09/24/16 08:09 09/24/16 08:09 09/24/16 08:09 - Medications Medications: Current Medications Ceftriaxone Sodium 1 gm/ (Sodium Chloride) 100 mls @ 100 mls/hr IVPB DAILY [facility] Sodium Chloride (Sodium Chloride 0.9%) 1,000 mls @ 110 mls/hr IV .Q9H6M [facility] Last Admin: 09/23/16 23:46 Dose: 110 mls/hr Insulin Aspart (Novolog) 3 unit SC ACHS [facility] Last Admin: 09/24/16 08:00 Dose: Not Given Insulin Glargine (Lantus) 10 unit SC HS [facility] Last Admin: 09/23/16 23:11 Dose: Not Given Morphine Sulfate (Morphine) 1 mg IV Q6 PRN PRN Reason: Pain, moderate (4-7) Morphine Sulfate (Morphine) 4 mg IVP Q4H PRN PRN Reason: Pain, severe (8-10) Last Admin: 09/24/16 08:28 Dose: 4 mg Ondansetron HCl (Zofran Inj) 4 mg IVP DAILY@ONCE PRN PRN Reason: Indigestion Stop: 09/24/16 23:31 Last Admin: 09/23/16 23:46 Dose: 4 mg Potassium Chloride (K-Dur 20 Meq Er Tab) 40 meq PO BID [facility] Stop: 09/24/16 18:01 - Labs Labs: 09/24/16 07:58 09/24/16 07:58 PT 11.6 SECONDS (9.7-12.2) 09/24/16 07:58 INR 1.0 09/24/16 07:58 APTT 27 SECONDS (21-34) 09/24/16 07:58 - Constitutional Appears: Non-toxic, No Acute Distress - Head Exam Head Exam: ATRAUMATIC, NORMOCEPHALIC - Respiratory Exam Respiratory Exam: NORMAL BREATHING PATTERN. absent: Respiratory Distress - GI/Abdominal Exam GI & Abdominal Exam: Guarding (mild RUQ), Soft, Tenderness (in RUQ). absent: Distended, Firm, Rigid - Neurological Exam Neurological Exam: Alert, Awake - Skin Skin Exam: Dry, Warm Assessment and Plan - Assessment and Plan (Free Text) Assessment: 20F with cholelithiasis, r/o cholecystitis Plan: F/U HIDA scan Cont Abx F/U AM Labs Analgesia Zofran D/W Dr. Peter Biggs PGY3 <Juventino Green B - Last Filed: 09/27/16 21:33> Objective - Vital Signs/Intake and Output Vital Signs (last 24 hours): Temp Pulse Resp BP Pulse Ox 98 F 84 20 122/81 98 09/27/16 16:00 09/27/16 16:00 09/27/16 16:00 09/27/16 16:00 09/27/16 16:00 Intake and Output: 09/27/16 09/28/16 18:59 06:59 Intake Total 580 Balance 580 - Labs Labs: 09/27/16 07:32 09/26/16 08:04 PT 11.6 SECONDS (9.7-12.2) 09/24/16 07:58 INR 1.0 09/24/16 07:58 APTT 27 SECONDS (21-34) 09/24/16 07:58 Attending/Attestation - Attestation I have personally seen and examined this patient.: Yes I have fully participated in the care of the patient.: Yes I have reviewed all pertinent clinical information, including history, physical exam and plan: Yes Notes (Text): 09/27/16 21:32 Pt was seen and examined at bedside on 09/24/16 Agree with above note and assessment Pt with possible Cholecystitis with Cholelithiasis with Morbid Obesity DM is under control today NPO,IVF OR for Lap Cholecystectomy tomorrow Plan d.w pt and primary team in detail Risk and benefit explained in detail
[2016-09-24] MEDS: Sodium Chloride 0.9% 1,000 ML IV SCH ×3 (10:11→21:32)
[2016-09-24] MEDS: Potassium Chloride 20 mEq ER Tab PO SCH ×2 (10:13→17:15)
--- NOTE | 2016-09-24 11:40 | RAD ---
HISTORY: Per Dr Rodriguez COMPARISON: Chest xray performed 07/30/16 TECHNIQUE: Chest, one view. FINDINGS: LUNGS: No focal consolidation. Please note that chest x-ray has limited sensitivity for the detection of pulmonary masses. PLEURA: No significant pleural effusion identified. No definite pneumothorax . CARDIOVASCULAR: The cardiomediastinal silhouette appears within normal limits of size. Faint lucency along the right heart border presumed to reflect Mach effect rather than pneumopericardium. OSSEOUS STRUCTURES: No acute osseous abnormality identified. VISUALIZED UPPER ABDOMEN: Unremarkable. OTHER FINDINGS: None. IMPRESSION: Faint lucency along the right heart border presumed to reflect Mach effect rather than pneumopericardium. Recommend clinical correlation and repeat chest PA and lateral radiographs with the patient in full inspiration.
--- NOTE | 2016-09-24 11:52 | CP.PCM.HP ---
History of Present Illness - History of Present Illness History of Present Illness: abd pain and nuasea gall stones Present on Admission - Present on Admission Any Indicators Present on Admission: Yes History of Uncontrolled Diabetes: Yes Review of Systems - Review of Systems Systems not reviewed;Unavailable: Acuity of Condition - Constitutional Constitutional: As Per HPI - EENT Eyes: As Per HPI Ears: As Per HPI Nose/Mouth/Throat: As Per HPI - Breasts Breasts: As Per HPI - Cardiovascular Cardiovascular: As Per HPI - Respiratory Respiratory: As Per HPI - Gastrointestinal Gastrointestinal: Abdominal Pain, Nausea - Genitourinary Genitourinary: As Per HPI - Reproductive: Female Reproductive:Female: As Per HPI - Menstruation Menstruation: As Per HPI - Musculoskeletal Musculoskeletal: As Per HPI - Integumentary Integumentary: As Per HPI - Neurological Neurological: As Per HPI - Psychiatric Psychiatric: As Per HPI - Endocrine Endocrine: Polydipsia, Polyuria - Hematologic/Lymphatic Hematologic: As Per HPI Past Patient History - Infectious Disease Hx of Infectious Diseases: None - Tetanus Immunizations Tetanus Immunization: Unknown - Past Medical History & Family History Past Medical History?: Yes - Past Social History Smoking Status: Never Smoked - CARDIAC Hx Cardiac Disorders: No Hx Atrial Fibrillation: No Hx Cardia Arrhythmia: No Hx Congestive Heart Failure: No - PULMONARY Hx Asthma: Yes - NEUROLOGICAL Hx Neurological Disorder: No - HEENT Hx HEENT Problems: No - RENAL Hx Chronic Kidney Disease: Yes (''KIDNEY INFECTION'') - ENDOCRINE/METABOLIC Hx Endocrine Disorders: Yes Hx Diabetes Mellitus Type 1: Yes - HEMATOLOGICAL/ONCOLOGICAL Hx Blood Disorders: No - INTEGUMENTARY Hx Dermatological Problems: No - MUSCULOSKELETAL/RHEUMATOLOGICAL Hx Musculoskeletal Disorders: No Hx Falls: No - GASTROINTESTINAL Hx Gastrointestinal Disorders: Yes Hx Nausea: Yes Hx Vomiting: Yes - GENITOURINARY/GYNECOLOGICAL Hx Genitourinary Disorders: Yes Hx Urinary Tract Infection: Yes - PSYCHIATRIC Hx Substance Use: No - SURGICAL HISTORY Hx Surgeries: No - ANESTHESIA Hx Anesthesia: No Hx Anesthesia Reactions: No Hx Malignant Hyperthermia: No Meds Allergies/Adverse Reactions: Allergies Allergy/AdvReac Type Severity Reaction Status Date / Time shellfish derived Allergy SWELLING Verified 07/31/16 20:39 Physical Exam - Constitutional Appears: Non-toxic - Head Exam Head Exam: NORMAL INSPECTION - Eye Exam Eye Exam: Normal appearance Pupil Exam: NORMAL ACCOMODATION - ENT Exam ENT Exam: Mucous Membranes Moist - Neck Exam Neck exam: Positive for: Full Rom - Respiratory Exam Respiratory Exam: Clear to Auscultation Bilateral - GI/Abdominal Exam GI & Abdominal Exam: Normal Bowel Sounds, Soft, Tenderness Additional comments: tender ruq - Rectal Exam Rectal Exam: NORMAL INSPECTION - Exam Exam: NORMAL INSPECTION - Extremities Exam Extremities exam: Positive for: normal inspection - Back Exam Back exam: NORMAL INSPECTION - Neurological Exam Neurological exam: Alert, Normal Gait, Oriented x3 - Psychiatric Exam Psychiatric exam: Flat Affect - Skin Skin Exam: Normal Color Results - Vital Signs Recent Vital Signs: Last Vital Signs Temp 97.5 F L 09/24/16 08:09 Pulse 87 09/24/16 08:09 Resp 20 09/24/16 08:09 BP 125/80 09/24/16 08:09 Pulse Ox 98 09/24/16 08:09 - Labs Result Diagrams: 09/24/16 07:58 09/24/16 07:58 Labs: Laboratory Results - last 24 hr 09/23/16 09/23/16 09/24/16 17:37 21:56 07:40 WBC RBC Hgb Hct MCV MCH MCHC RDW Plt Count MPV Neut % (Auto) Lymph % (Auto) [place] % (Auto) Eos % (Auto) Baso % (Auto) Neut # Lymph # [place] # Eos # Baso # PT INR APTT Sodium Potassium Chloride Carbon Dioxide Anion Gap BUN Creatinine Est GFR ( Amer) Est GFR (Non-Af Amer) POC Glucose (mg/dL) 208 H 101 159 H Random Glucose Calcium Total Bilirubin AST ALT Alkaline Phosphatase Total Protein Albumin Globulin Albumin/Globulin Ratio 09/24/16 09/24/16 09/24/16 07:58 07:58 07:58 WBC 8.5 RBC 4.16 Hgb 13.1 Hct 37.5 MCV 90.1 MCH 31.5 H MCHC 35.0 RDW 14.2 Plt Count 249 MPV 8.3 Neut % (Auto) 66.8 Lymph % (Auto) 25.1 [place] % (Auto) 7.1 Eos % (Auto) 0.7 Baso % (Auto) 0.3 Neut # 5.6 Lymph # 2.1 [place] # 0.6 Eos # 0.1 Baso # 0.0 PT 11.6 INR 1.0 APTT 27 Sodium 140 Potassium 3.2 L Chloride 99 Carbon Dioxide 27 Anion Gap 17 BUN 10 Creatinine 0.6 L Est GFR ( Amer) > 60 Est GFR (Non-Af Amer) > 60 POC Glucose (mg/dL) Random Glucose 154 H Calcium 8.2 L Total Bilirubin 1.1 AST 28 ALT 23 Alkaline Phosphatase 42 Total Protein 6.4 Albumin 3.5 D Globulin 2.9 Albumin/Globulin Ratio 1.2 09/24/16 11:21 WBC RBC Hgb Hct MCV MCH MCHC RDW Plt Count MPV Neut % (Auto) Lymph % (Auto) [place] % (Auto) Eos % (Auto) Baso % (Auto) Neut # Lymph # [place] # Eos # Baso # PT INR APTT Sodium Potassium Chloride Carbon Dioxide Anion Gap BUN Creatinine Est GFR ( Amer) Est GFR (Non-Af Amer) POC Glucose (mg/dL) 155 H Random Glucose Calcium Total Bilirubin AST ALT Alkaline Phosphatase Total Protein Albumin Globulin Albumin/Globulin Ratio Assessment & Plan - Assessment and Plan (Free Text) Assessment: ac abd pain gall stones cholysystitis dm obesity Plan: diet today then as per melchor - Date & Time Date: 09/24/16 Time: 11:55 Decision To Admit - Pt Status Changed To: Hospital Disposition Of: Inpatient - Admit Certification Admit to Inpatient:: After my assessment, the patient will require hospitalization for at least two midnights. This is because of the severity of symptoms shown, intensity of services needed, and/or the medical risk in this patient being treated as an outpatient. - InPatient: Physician Admission Certification:: pt has abd pain gallstones wbc surgical consult - . Bed Request Type: Regular
--- NOTE | 2016-09-24 12:14 | RAD ---
HISTORY: Abnormal prior chest x-ray. COMPARISON: Chest x-ray performed earlier the same day. TECHNIQUE: Chest PA and lateral FINDINGS: LUNGS: No focal consolidation. Please note that chest x-ray has limited sensitivity for the detection of pulmonary masses. PLEURA: No significant pleural effusion identified. No definite pneumothorax . CARDIOVASCULAR: The cardiomediastinal silhouette appears within normal limits of size. OSSEOUS STRUCTURES: No acute osseous abnormality identified. VISUALIZED UPPER ABDOMEN: Unremarkable. OTHER FINDINGS: None. IMPRESSION: Unremarkable chest x-ray. Lucency demonstrated on chest x-ray performed earlier the same day is not evident on this examination was likely artifactual.
[2016-09-24] MEDS: (Lantus) Insulin Glargine, Recombinant SC SCH (21:30)
[2016-09-24] MEDS ORDERED: (Lantus) Insulin Glargine, Recombinant SC SCH (22:00)
[2016-09-25] MEDS: Sodium Chloride 0.9% 1,000 ML IV SCH ×2 (02:43→11:53)
[2016-09-25] MEDS: Morphine 4 MG/ML VIAL IVP PRN ×3 (02:44→11:51)
[2016-09-25] MEDS: (Novolog) Insulin Aspart, Recombinant 100 u/ml 10 ml vial SC SCH ×4 (07:58→21:46)
[2016-09-25 08:17] LABS: BASO % 0.3 % (0.0-2.0); EOS # 0.1 K/uL (0.0-0.7); EOS % 0.9 % (0.0-4.0); HEMATOCRIT 37.7 % (34.0-47.0); LYMPH # 1.9 K/uL (1.0-4.3); LYMPH % 22.9 % (20.0-40.0); MEAN CORPUSCULAR HEMOGLOBIN 30.9 pg (27.0-31.0); MEAN PLATELET VOLUME 8.2 fL (7.2-11.7); MONO # 0.5 K/uL (0.0-0.8); MONO % 6.5 % (0.0-10.0); RED CELL DISTRIBUTION WIDTH 14.1 % (11.5-14.5); WHITE BLOOD COUNT 8.4 K/uL (4.8-10.8)
[2016-09-25 08:37] LABS: CHLORIDE 102 mmol/L (98-107); POTASSIUM 4.1 mmol/L (3.6-5.2); SODIUM 138 mmol/L (132-148)
[2016-09-25 08:39] LABS: GFR AFRICAN-AMERICAN > 60
[2016-09-25 08:40] LABS: ALB/GLOB RATIO 1.2 (1.0-2.1); ALKALINE PHOSPHATASE 38 U/L (38-126); ALT/SGPT 32 U/L (9-52); AST/SGOT 35 U/L (14-36); BILIRUBIN,TOTAL 0.8 mg/dL (0.2-1.3); BLOOD UREA NITROGEN 7 mg/dL (7-17); CALCIUM 8.1 mg/dl (8.6-10.4); CARBON DIOXIDE 27 mmol/L (22-30); GLUCOSE,RANDOM 111 mg/dL (65-105); TOTAL PROTEIN 6.3 g/dL (6.3-8.3)
--- NOTE | 2016-09-25 11:00 | NM ---
PROCEDURE: Nuclear Medicine Hepatobiliary Scan HISTORY: RUQ pain/cholelithiasis COMPARISON: Comparison is made to the previous CT of the abdomen and pelvis dated 07/31/2016 TECHNIQUE: 5 mCi of technetium 99m Mebrofenin was administered intravenously. Planar images of the abdomen were obtained at 5 min intervals to 60 mins. Delayed images were also obtained. FINDINGS: LIVER: Timely and homogenous uptake. COMMON BILE DUCT: identified at 35 mins. GALLBLADDER: identified at 15 mins. SMALL BOWEL: Identified at 40 mins. IMPRESSION: Normal Hepatobiliary Scan. The cystic duct is patent.
[2016-09-25] MEDS ORDERED: Midazolam 2 MG/2 ML VIAL ONE (13:54)
[2016-09-25] MEDS ORDERED: Propofol 10 mg/ml Inj (20 ML) ONE (13:54)
[2016-09-25] MEDS ORDERED: Succinylcholine Chloride 20 mg/ml Syr (5 ml) IV ONE (13:55)
[2016-09-25] MEDS ORDERED: Bupivacaine HCl 0.25% PF (10 ml) Inj ONE (13:56)
[2016-09-25] MEDS ORDERED: Lidocaine 1% Inj (20ml) ONE ×2 (13:56→14:25)
[2016-09-25] MEDS ORDERED: Iohexol 240 (50 ml) ONE (13:56)
[2016-09-25] MEDS ORDERED: cefOXitin IV 2 gm in Dextrose 2 GM/50 ML BAG IVPB ONE (13:57)
[2016-09-25] MEDS ORDERED: Lactated Ringer's 1,000 ML IV ONE (14:00)
[2016-09-25] MEDS ORDERED: Bupivacaine-Epi 0.5%-1:200,000 PF Inj ONE (14:11)
[2016-09-25] MEDS ORDERED: Neostigmine Methylsulfate 3mg/3ml Syringe IV ONE (15:04)
[2016-09-25] MEDS ORDERED: Albuterol 0.083% Inhal Sol (2.5 mg/3 mL) UD INH PRN (15:30)
[2016-09-25] MEDS ORDERED: DiphenhydrAMINE 50 mg/ml Inj IVP PRN (15:30)
[2016-09-25] MEDS ORDERED: Dexamethasone 4 mg/1 ml IVP PRN (15:30)
--- NOTE | 2016-09-25 15:34 | PCM.SURG1 ---
Surgeon's Initial Post Op Note - Surgeon's Notes Surgeon: Dr. Green Recreation Therapy Aide: Jenny Metzger Type of Anesthesia: General Endo, Local Pre-Operative Diagnosis: cholecystitis Operative Findings: inflammed gallbladder, adhesions Post-Operative Diagnosis: cholecystitis Operation Performed: robotic assisted laparoscopic cholecystectomy Specimen/Specimens Removed: gallbladder Estimated Blood Loss: EBL {In ML}: 10 Blood Products Given: N/A Drains Used: No Drains Post-Op Condition: Good Date of Surgery/Procedure: 09/25/16 Time of Surgery/Procedure: 15:34
[2016-09-25] MEDS ORDERED: Oxycodone/Acetaminophen 5/325 mg Tab PO PRN (15:35)
[2016-09-25] MEDS ORDERED: Morphine 4 MG/ML VIAL IVP PRN (15:36)
[2016-09-25] MEDS ORDERED: HYDROmorphone 1 mg/ml ISec ONE ×2 (16:07→16:19)
[2016-09-25] MEDS ORDERED: HYDROmorphone 0.5 mg/0.5 ml ISec IVP ONE (16:19)
[2016-09-25] MEDS ORDERED: Sodium Chloride 0.9% 1,000 ML IV ONE (16:40)
--- NOTE | 2016-09-25 18:30 | CP.PCM.PN ---
Subjective - Date & Time of Evaluation Date of Evaluation: 09/25/16 Time of Evaluation: 18:27 - Subjective Subjective: s/p surgery today feels good ambulate about to eate Objective - Vital Signs/Intake and Output Vital Signs (last 24 hours): Temp Pulse Resp BP Pulse Ox 97.9 F 95 H 20 149/93 H 98 09/25/16 17:05 09/25/16 17:05 09/25/16 17:05 09/25/16 17:05 09/25/16 17:05 Intake and Output: 09/25/16 09/25/16 06:59 18:59 Intake Total 50 Balance 50 - Medications Medications: Current Medications Albuterol Sulfate (Albuterol 0.083% Inhal Brooke (2.5 Mg/3 Ml) Ud) 2.5 mg INH ONCE PRN PRN Reason: Wheezing Ceftriaxone Sodium 1 gm/ (Sodium Chloride) 100 mls @ 100 mls/hr IVPB DAILY [facility] Last Admin: 09/25/16 11:05 Dose: 100 mls/hr Sodium Chloride (Sodium Chloride 0.9%) 1,000 mls @ 110 mls/hr IV .Q9H6M [facility] Last Admin: 09/25/16 11:53 Dose: Not Given Insulin Aspart (Novolog) 3 unit SC ACHS [facility] Last Admin: 09/25/16 17:14 Dose: 3 unit Insulin Glargine (Lantus) 10 unit SC HS [facility] Last Admin: 09/24/16 21:30 Dose: 10 unit Morphine Sulfate (Morphine) 4 mg IVP Q4H PRN PRN Reason: Pain, severe (8-10) Oxycodone/Acetaminophen (Percocet 5/325 Mg Tab) 2 tab PO Q4H PRN PRN Reason: Pain, severe (8-10) Stop: 09/28/16 15:36 Oxycodone/Acetaminophen (Percocet 5/325 Mg Tab) 1 tab PO Q4H PRN PRN Reason: Pain, moderate (4-7) Stop: 09/28/16 15:36 - Labs Labs: 09/25/16 08:09 09/25/16 08:09 PT 11.6 SECONDS (9.7-12.2) 09/24/16 07:58 INR 1.0 09/24/16 07:58 APTT 27 SECONDS (21-34) 09/24/16 07:58 - Constitutional Appears: Well - Head Exam Head Exam: NORMAL INSPECTION - Eye Exam Eye Exam: Normal appearance Pupil Exam: NORMAL ACCOMODATION - ENT Exam ENT Exam: Mucous Membranes Moist, Normal Exam - Respiratory Exam Respiratory Exam: Clear to Ausculation Bilateral - Cardiovascular Exam Cardiovascular Exam: REGULAR RHYTHM - GI/Abdominal Exam GI & Abdominal Exam: Normal Bowel Sounds - Rectal Exam Rectal Exam: NORMAL INSPECTION - Extremities Exam Extremities Exam: Normal Inspection - Back Exam Back Exam: NORMAL INSPECTION - Neurological Exam Neurological Exam: Normal Gait - Psychiatric Exam Psychiatric exam: Normal Affect - Skin Skin Exam: Normal Color Assessment and Plan - Assessment and Plan (Free Text) Assessment: cholysystectomey cot as per orders
[2016-09-25] MEDS: (Lantus) Insulin Glargine, Recombinant SC SCH (21:47)
[2016-09-26] MEDS: Oxycodone/Acetaminophen 5/325 mg Tab PO PRN ×5 (04:53→22:16)
[2016-09-26] MEDS: Sodium Chloride 0.9% 1,000 ML IV SCH ×2 (06:03→14:57)
[2016-09-26 08:33] LABS: BASO % 0.1 % (0.0-2.0); HEMATOCRIT 34.9 % (34.0-47.0); LYMPH # 1.4 K/uL (1.0-4.3); LYMPH % 9.9 % (20.0-40.0); MEAN CELL VOLUME 89.2 fL (81.0-99.0); MEAN CORPUSCULAR HEMOGLOBIN 31.7 pg (27.0-31.0); MEAN CORPUSCULAR HGB CONC 35.5 g/dL (33.0-37.0); MEAN PLATELET VOLUME 8.3 fL (7.2-11.7); MONO # 0.9 K/uL (0.0-0.8); MONO % 6.1 % (0.0-10.0); PLATELET COUNT 247 K/uL (130-400); RED CELL DISTRIBUTION WIDTH 13.8 % (11.5-14.5)
[2016-09-26 08:50] LABS: CHLORIDE 99 mmol/L (98-107); POTASSIUM 3.9 mmol/L (3.6-5.2); SODIUM 137 mmol/L (132-148)
[2016-09-26 08:52] LABS: AST/SGOT 45 U/L (14-36); BILIRUBIN,TOTAL 0.7 mg/dL (0.2-1.3); CARBON DIOXIDE 26 mmol/L (22-30); GFR AFRICAN-AMERICAN > 60
[2016-09-26 08:53] LABS: ALB/GLOB RATIO 1.2 (1.0-2.1); ALKALINE PHOSPHATASE 37 U/L (38-126); ALT/SGPT 28 U/L (9-52); BLOOD UREA NITROGEN 7 mg/dL (7-17); CALCIUM 8.4 mg/dl (8.6-10.4); GLUCOSE,RANDOM 179 mg/dL (65-105); TOTAL PROTEIN 6.2 g/dL (6.3-8.3)
[2016-09-26] MEDS: (Novolog) Insulin Aspart, Recombinant 100 u/ml 10 ml vial SC SCH ×4 (09:14→21:34)
[2016-09-26 10:17] LABS: NEUTROPHIL 84 % (50-75); TOTAL CELLS COUNTED 100
--- NOTE | 2016-09-26 10:47 | CP.PCM.PN ---
<Mao VelaByron - Last Filed: 09/26/16 10:44> Subjective - Date & Time of Evaluation Date of Evaluation: 09/26/16 Time of Evaluation: 10:44 - Subjective Subjective: Surgery: Dr. Green Patient doing well. Pain controlled. Tolerated diet. Denies n/v/f/c. She has been OOB to bathroom. No complaints at this time. Objective - Vital Signs/Intake and Output Vital Signs (last 24 hours): Temp Pulse Resp BP Pulse Ox 98.0 F 98 H 20 119/78 98 09/26/16 07:27 09/26/16 07:27 09/26/16 07:27 09/26/16 07:27 09/26/16 07:27 Intake and Output: 09/26/16 09/26/16 06:59 18:59 Intake Total 910 Balance 910 - Medications Medications: Current Medications Albuterol Sulfate (Albuterol 0.083% Inhal Brooke (2.5 Mg/3 Ml) Ud) 2.5 mg INH ONCE PRN PRN Reason: Wheezing Ceftriaxone Sodium 1 gm/ (Sodium Chloride) 100 mls @ 100 mls/hr IVPB DAILY [facility] Last Admin: 09/26/16 09:14 Dose: 100 mls/hr Sodium Chloride (Sodium Chloride 0.9%) 1,000 mls @ 110 mls/hr IV .Q9H6M [facility] Last Admin: 09/26/16 06:03 Dose: Not Given Insulin Aspart (Novolog) 3 unit SC ACHS [facility] Last Admin: 09/26/16 09:14 Dose: 3 unit Insulin Glargine (Lantus) 10 unit SC HS [facility] Last Admin: 09/25/16 21:47 Dose: 10 unit Morphine Sulfate (Morphine) 4 mg IVP Q4H PRN PRN Reason: Pain, severe (8-10) Last Admin: 09/25/16 20:22 Dose: 4 mg Oxycodone/Acetaminophen (Percocet 5/325 Mg Tab) 2 tab PO Q4H PRN PRN Reason: Pain, severe (8-10) Stop: 09/28/16 15:36 Last Admin: 09/26/16 09:48 Dose: 2 tab Oxycodone/Acetaminophen (Percocet 5/325 Mg Tab) 1 tab PO Q4H PRN PRN Reason: Pain, moderate (4-7) Stop: 09/28/16 15:36 - Labs Labs: 09/26/16 08:04 09/26/16 08:04 PT 11.6 SECONDS (9.7-12.2) 09/24/16 07:58 INR 1.0 09/24/16 07:58 APTT 27 SECONDS (21-34) 09/24/16 07:58 - Constitutional Appears: Well, Toxic, No Acute Distress - Head Exam Head Exam: ATRAUMATIC, NORMOCEPHALIC - Eye Exam Eye Exam: EOMI, Normal appearance - ENT Exam ENT Exam: Mucous Membranes Moist - Respiratory Exam Respiratory Exam: NORMAL BREATHING PATTERN. absent: Respiratory Distress - Cardiovascular Exam Cardiovascular Exam: REGULAR RHYTHM - GI/Abdominal Exam GI & Abdominal Exam: Soft. absent: Distended, Guarding, Rigid, Tenderness, Rebound Additional comments: dressing CDI - Extremities Exam Extremities Exam: Normal Inspection. absent: Calf Tenderness - Neurological Exam Neurological Exam: Alert, Awake, Oriented x3 - Psychiatric Exam Psychiatric exam: Normal Affect, Normal Mood - Skin Skin Exam: Dry, Normal Color, Warm Assessment and Plan - Assessment and Plan (Free Text) Assessment: 20 y/o female s/p robotics assisted laparoscopic cholecystectomy POD1 Plan: -cleared for d/c from surgical standpoint -f/u w/ Dr. Green in 1-2 weeks -leave steri-strips in place, can shower in 48 hrs. Do not bathe or soak incisions -take tylenol or motrin for pain -d/w Dr. Green AKWhite PGY1 <Juventino Green B - Last Filed: 09/27/16 21:41> Objective - Vital Signs/Intake and Output Vital Signs (last 24 hours): Temp Pulse Resp BP Pulse Ox 98 F 84 20 122/81 98 09/27/16 16:00 09/27/16 16:00 09/27/16 16:00 09/27/16 16:00 09/27/16 16:00 Intake and Output: 09/27/16 09/28/16 18:59 06:59 Intake Total 580 Balance 580 - Labs Labs: 09/27/16 07:32 09/26/16 08:04 PT 11.6 SECONDS (9.7-12.2) 09/24/16 07:58 INR 1.0 09/24/16 07:58 APTT 27 SECONDS (21-34) 09/24/16 07:58 Attending/Attestation - Attestation I have personally seen and examined this patient.: Yes I have fully participated in the care of the patient.: Yes I have reviewed all pertinent clinical information, including history, physical exam and plan: Yes Notes (Text): 09/27/16 21:41 Pt was seen and examined at bedside on 09/26/16 Agree with above note and assessment
--- NOTE | 2016-09-26 11:47 | CP.PCM.PN ---
Subjective - Date & Time of Evaluation Date of Evaluation: 09/26/16 Time of Evaluation: 11:46 - Subjective Subjective: alot of abd pain canot move her bowel yet Objective - Vital Signs/Intake and Output Vital Signs (last 24 hours): Temp Pulse Resp BP Pulse Ox 98.0 F 98 H 20 119/78 98 09/26/16 07:27 09/26/16 07:27 09/26/16 07:27 09/26/16 07:27 09/26/16 07:27 Intake and Output: 09/26/16 09/26/16 06:59 18:59 Intake Total 910 Balance 910 - Medications Medications: Current Medications Albuterol Sulfate (Albuterol 0.083% Inhal [place] (2.5 Mg/3 Ml) Ud) 2.5 mg INH ONCE PRN PRN Reason: Wheezing Ceftriaxone Sodium 1 gm/ (Sodium Chloride) 100 mls @ 100 mls/hr IVPB DAILY [facility] Last Admin: 09/26/16 09:14 Dose: 100 mls/hr Sodium Chloride (Sodium Chloride 0.9%) 1,000 mls @ 110 mls/hr IV .Q9H6M [facility] Last Admin: 09/26/16 06:03 Dose: Not Given Insulin Aspart (Novolog) 3 unit SC ACHS [facility] Last Admin: 09/26/16 09:14 Dose: 3 unit Insulin Glargine (Lantus) 10 unit SC HS [facility] Last Admin: 09/25/16 21:47 Dose: 10 unit Morphine Sulfate (Morphine) 4 mg IVP Q4H PRN PRN Reason: Pain, severe (8-10) Last Admin: 09/25/16 20:22 Dose: 4 mg Oxycodone/Acetaminophen (Percocet 5/325 Mg Tab) 2 tab PO Q4H PRN PRN Reason: Pain, severe (8-10) Stop: 09/28/16 15:36 Last Admin: 09/26/16 09:48 Dose: 2 tab Oxycodone/Acetaminophen (Percocet 5/325 Mg Tab) 1 tab PO Q4H PRN PRN Reason: Pain, moderate (4-7) Stop: 09/28/16 15:36 - Labs Labs: 09/26/16 08:04 09/26/16 08:04 PT 11.6 SECONDS (9.7-12.2) 09/24/16 07:58 INR 1.0 09/24/16 07:58 APTT 27 SECONDS (21-34) 09/24/16 07:58 - Constitutional Appears: Non-toxic - Head Exam Head Exam: NORMAL INSPECTION - Eye Exam Eye Exam: Normal appearance Pupil Exam: NORMAL ACCOMODATION - ENT Exam ENT Exam: Mucous Membranes Moist - Neck Exam Neck Exam: Full ROM - Respiratory Exam Respiratory Exam: Clear to Ausculation Bilateral - Cardiovascular Exam Cardiovascular Exam: REGULAR RHYTHM - GI/Abdominal Exam GI & Abdominal Exam: Soft, Tenderness - Extremities Exam Extremities Exam: Normal Inspection - Back Exam Back Exam: NORMAL INSPECTION - Neurological Exam Neurological Exam: Awake, Oriented x3 - Psychiatric Exam Psychiatric exam: Normal Affect - Skin Skin Exam: Normal Color Assessment and Plan - Assessment and Plan (Free Text) Assessment: abd pain s/p cholysistectomy leucocytosis cont iv antbiotic cont pain management still unable to move bowel will order dulckax
[2016-09-26] MEDS ORDERED: Bisacodyl 5mg EC Tab PO ONE (11:51)
[2016-09-26] MEDS: Enoxaparin 40 mg Syringe SC SCH (14:56)
[2016-09-26 16:53] LABS: HEMATOCRIT 36.6 % (34.0-47.0); MEAN CELL VOLUME 89.7 fL (81.0-99.0); MEAN CORPUSCULAR HEMOGLOBIN 31.1 pg (27.0-31.0); MEAN CORPUSCULAR HGB CONC 34.7 g/dL (33.0-37.0); MEAN PLATELET VOLUME 8.4 fL (7.2-11.7); WHITE BLOOD COUNT 11.8 K/uL (4.8-10.8)
[2016-09-26] MEDS: (Lantus) Insulin Glargine, Recombinant SC SCH (21:36)
[2016-09-27 01:55] VITALS: O2SAT 98
[2016-09-27] MEDS: Oxycodone/Acetaminophen 5/325 mg Tab PO PRN ×4 (02:32→16:39)
[2016-09-27 07:40] LABS: BASO % 0.4 % (0.0-2.0); EOS % 0.3 % (0.0-4.0); HEMATOCRIT 35.6 % (34.0-47.0); LYMPH # 2.5 K/uL (1.0-4.3); LYMPH % 28.6 % (20.0-40.0); MEAN CELL VOLUME 90.8 fL (81.0-99.0); MEAN CORPUSCULAR HEMOGLOBIN 31.7 pg (27.0-31.0); MEAN CORPUSCULAR HGB CONC 34.9 g/dL (33.0-37.0); MEAN PLATELET VOLUME 8.3 fL (7.2-11.7); MONO # 0.6 K/uL (0.0-0.8); MONO % 6.9 % (0.0-10.0); RED CELL DISTRIBUTION WIDTH 14.2 % (11.5-14.5); WHITE BLOOD COUNT 8.9 K/uL (4.8-10.8)
--- NOTE | 2016-09-27 08:24 | CP.PCM.PN ---
<Darrian Vela - Last Filed: 09/27/16 08:21> Subjective - Date & Time of Evaluation Date of Evaluation: 09/27/16 Time of Evaluation: 08:21 - Subjective Subjective: Surgery: Dr. Green Patient doing better today. She denies BM. She states she has been oob ambulating. She complained of nausea yesterday after pain medication but states she tolerated her dinner w/p any n/v. She denies f/c. Objective - Vital Signs/Intake and Output Vital Signs (last 24 hours): Temp Pulse Resp BP Pulse Ox 97.9 F 86 18 139/88 98 09/27/16 08:18 09/27/16 08:18 09/27/16 08:18 09/27/16 08:18 09/27/16 08:18 Intake and Output: 09/27/16 09/27/16 06:59 18:59 Intake Total 400 Balance 400 - Medications Medications: Current Medications Albuterol Sulfate (Albuterol 0.083% Inhal Brooke (2.5 Mg/3 Ml) Ud) 2.5 mg INH ONCE PRN PRN Reason: Wheezing Docusate Sodium (Colace) 100 mg PO BID [facility] Last Admin: 09/26/16 22:56 Dose: 100 mg Enoxaparin Sodium (Lovenox) 40 mg SC DAILY [facility] Last Admin: 09/26/16 14:56 Dose: 40 mg Famotidine (Pepcid) 20 mg PO DAILY [facility] Ceftriaxone Sodium 1 gm/ (Sodium Chloride) 100 mls @ 100 mls/hr IVPB DAILY [facility] Last Admin: 09/26/16 09:14 Dose: 100 mls/hr Insulin Aspart (Novolog) 3 unit SC ACHS [facility] Last Admin: 09/26/16 21:34 Dose: 3 unit Insulin Glargine (Lantus) 10 unit SC HS [facility] Last Admin: 09/26/16 21:36 Dose: 10 unit Ondansetron HCl (Zofran Inj) 4 mg IVP Q4 PRN PRN Reason: Nausea/Vomiting Last Admin: 09/26/16 16:57 Dose: 4 mg Oxycodone/Acetaminophen (Percocet 5/325 Mg Tab) 2 tab PO Q4H PRN PRN Reason: Pain, severe (8-10) Stop: 09/28/16 15:36 Last Admin: 09/27/16 07:01 Dose: 2 tab Oxycodone/Acetaminophen (Percocet 5/325 Mg Tab) 1 tab PO Q4H PRN PRN Reason: Pain, moderate (4-7) Stop: 09/28/16 15:36 - Labs Labs: 09/27/16 07:32 09/26/16 08:04 PT 11.6 SECONDS (9.7-12.2) 09/24/16 07:58 INR 1.0 09/24/16 07:58 APTT 27 SECONDS (21-34) 09/24/16 07:58 - Constitutional Appears: Well, Non-toxic, No Acute Distress - Head Exam Head Exam: ATRAUMATIC, NORMOCEPHALIC - Eye Exam Eye Exam: EOMI, Normal appearance - ENT Exam ENT Exam: Mucous Membranes Moist - Respiratory Exam Respiratory Exam: NORMAL BREATHING PATTERN. absent: Respiratory Distress - Cardiovascular Exam Cardiovascular Exam: Tachycardia, REGULAR RHYTHM - GI/Abdominal Exam GI & Abdominal Exam: Soft. absent: Distended, Guarding, Tenderness, Rebound Additional comments: dressing CDI - Neurological Exam Neurological Exam: Alert, Awake, Oriented x3 - Psychiatric Exam Psychiatric exam: Normal Affect, Normal Mood - Skin Skin Exam: Dry, Normal Color, Warm Assessment and Plan - Assessment and Plan (Free Text) Assessment: 20 y/o female s/p robotic cholecystectomy POD2 Plan: -cleared for discharge from surgical standpoint -BM not required prior to d/c, cont colace BID at home for constipation -encourage ambulation at home -cont IS at home -no abx per surgical standpoint -f/u w/ Dr. Green in 1-2 weeks -can remove overlying bandaids tomorrow, leave steris in place -can shower, do not bathe or soak incisions -further recs per Dr. Green AKWhite PGY1 <Juventino Green B - Last Filed: 09/27/16 21:41> Objective - Vital Signs/Intake and Output Vital Signs (last 24 hours): Temp Pulse Resp BP Pulse Ox 98 F 84 20 122/81 98 09/27/16 16:00 09/27/16 16:00 09/27/16 16:00 09/27/16 16:00 09/27/16 16:00 Intake and Output: 09/27/16 09/28/16 18:59 06:59 Intake Total 580 Balance 580 - Labs Labs: 09/27/16 07:32 09/26/16 08:04 PT 11.6 SECONDS (9.7-12.2) 09/24/16 07:58 INR 1.0 09/24/16 07:58 APTT 27 SECONDS (21-34) 09/24/16 07:58 Attending/Attestation - Attestation I have personally seen and examined this patient.: Yes I have fully participated in the care of the patient.: Yes I have reviewed all pertinent clinical information, including history, physical exam and plan: Yes Notes (Text): 09/27/16 21:41 Pt was seen and examined at bedside on 09/27/16 Agree with above note and assessment
[2016-09-27] MEDS: (Novolog) Insulin Aspart, Recombinant 100 u/ml 10 ml vial SC SCH ×3 (09:37→18:08)
[2016-09-27] MEDS: Enoxaparin 40 mg Syringe SC SCH (09:37)
[2016-09-27 17:04] VITALS: BP 122/81; PULSE 84; RESP 20; TEMP 98
--- NOTE | 2016-09-27 17:34 | CP.PCM.PN ---
Subjective - Date & Time of Evaluation Date of Evaluation: 09/27/16 Time of Evaluation: 17:34 - Subjective Subjective: Alert, oriented, NAD, tolerating food. Objective - Vital Signs/Intake and Output Vital Signs (last 24 hours): Temp Pulse Resp BP Pulse Ox 98 F 84 20 122/81 98 09/27/16 16:00 09/27/16 16:00 09/27/16 16:00 09/27/16 16:00 09/27/16 16:00 Intake and Output: 09/27/16 09/27/16 06:59 18:59 Intake Total 400 580 Balance 400 580 - Medications Medications: Current Medications Albuterol Sulfate (Albuterol 0.083% Inhal Brooke (2.5 Mg/3 Ml) Ud) 2.5 mg INH ONCE PRN PRN Reason: Wheezing Docusate Sodium (Colace) 100 mg PO BID [facility] Last Admin: 09/27/16 17:11 Dose: 100 mg Enoxaparin Sodium (Lovenox) 40 mg SC DAILY [facility] Last Admin: 09/27/16 09:37 Dose: 40 mg Famotidine (Pepcid) 20 mg PO DAILY [facility] Last Admin: 09/27/16 09:38 Dose: 20 mg Ceftriaxone Sodium 1 gm/ (Sodium Chloride) 100 mls @ 100 mls/hr IVPB DAILY [facility] Last Admin: 09/27/16 09:40 Dose: 100 mls/hr Insulin Aspart (Novolog) 3 unit SC ACHS [facility] Last Admin: 09/27/16 13:14 Dose: 3 unit Insulin Glargine (Lantus) 10 unit SC HS [facility] Last Admin: 09/26/16 21:36 Dose: 10 unit Ondansetron HCl (Zofran Inj) 4 mg IVP Q4 PRN PRN Reason: Nausea/Vomiting Last Admin: 09/26/16 16:57 Dose: 4 mg Oxycodone/Acetaminophen (Percocet 5/325 Mg Tab) 2 tab PO Q4H PRN PRN Reason: Pain, severe (8-10) Stop: 09/28/16 15:36 Last Admin: 09/27/16 16:39 Dose: 2 tab Oxycodone/Acetaminophen (Percocet 5/325 Mg Tab) 1 tab PO Q4H PRN PRN Reason: Pain, moderate (4-7) Stop: 09/28/16 15:36 - Labs Labs: 09/27/16 07:32 09/26/16 08:04 PT 11.6 SECONDS (9.7-12.2) 09/24/16 07:58 INR 1.0 09/24/16 07:58 APTT 27 SECONDS (21-34) 09/24/16 07:58 Assessment and Plan - Assessment and Plan (Free Text) Assessment: Patient post operative, seen and examined. Denies acute pain. Cleared by surgery for discharge malorieome. D/W DR Rodriguez, discharge plan for today. Advised to follow up with surgery in 1 week.
--- NOTE | 2016-09-28 08:24 | OP ---
PROCEDURE DATE: 09/25/2016 PREOPERATIVE DIAGNOSES: Acute cholecystitis and cholelithiasis. POSTOPERATIVE DIAGNOSES: 1. Acute on chronic cholecystitis and cholelithiasis. 2. Extensive postinfectious adhesion. PROCEDURES DONE: 1. Robotic extensive lysis of adhesion. 2. Robotic cholecystectomy. SURGEON: Juventino Green MD MILL TENDER WARM UP: REIKA Coombs. Jenny was present from the beginning to the end of the procedure. Helped in prepping and draping, placement of the ports, docking and undocking of the robot, and closu re of the wounds. ANESTHESIA: General endotracheal tube anesthesia. ESTIMATED BLOOD LOSS: Around 10 mL. DRAINS: None. PATHOLOGY: Gallbladder with gallstone was sent for pathology. COMPLICATIONS: None. INTRAOPERATIVE FINDINGS: The patient had acute on chronic cholecystitis with extensive postinfectiou s adhesion, and there was adhesion between the Calot's triangle and the colon as well as duodenum. INTRAOPERATIVE STEPS: This 20-year-old female was diagnosed with cholelithiasis and possible acute o n chronic cholecystitis, and patient was consented for robotic cholecystectomy, possible open. Broug ht to the OR, placed supine on the operating table. After induction of the anesthesia, abdomen was p repped and draped in the usual sterile fashion. Supraumbilical transverse 1.5 cm incision was made. After incising skin and subcutaneous tissue and the fascia, the robotic camera port was placed. Ano ther two 8 mm ports were placed in the right upper quadrant and left upper quadrant, and 5 mm port wa s placed in the midclavicular line on the right side and the robot was brought in. The camera arm an d arm 1 and arm 2 were docked. The gallbladder appeared to be extremely distended, thickened and the re was extensive adhesion between the colon as well as the gallbladder and the duodenum. First, lysi s of adhesion was done, the gallbladder was retracted cranially, Calot's triangle dissection was done , cystic duct and cystic artery were identified and the Firefly intraoperatively was used to identify the ductal anatomy. After cystic duct and common bile duct identification, and after critical view of safety, the cystic duct was clipped at 3 places and cut in between 2 clips near the gallbladder. The cystic artery was also clipped and cut. The gallbladder was dissected free from the gallbladder fossa, taken in EndoCatch bag, taken out through the umbilical port site and sent off the table for t he pathology. After proper hemostasis, all the instruments were taken out, the robot was undocked, a ll the ports were taken out under vision, and pneumo was deflated. Umbilical port site was closed in 2 layers, the fascia with 0 Vicryl and skin with a 4-0 Monocryl. Dry, sterile dressing was applied. The patient tolerated the procedure well. Count of instruments and gauze was correct. There was n o apparent complication. Juventino Green MD cc: [id number] TT: 09/28/2016 08:23:52 mn
--- NOTE | 2016-10-10 14:08 | DS ---
This is a patient who came into the Emergency Room with abdominal pain, right upper quadrant abdomina l pain. She was also found to have gallstones. She had HIDA scan negative for any ____. She was se en by ____ and he operated on her. He removed the gallbladder. She had a postoperative time to get better and she was able to go to the bathroom and tolerating diet and she was discharged after e was cleared by the surgeon. She was having nebulizer treatment. She was on Rocephin. She also martínez s diabetes and she was covered by the insulin at the time she was in the hospital and she was on pain killer. Her last blood count was normal at 8.4, hemoglobin 12.8, which is normal. The sugar was 11 1, which is normal. Kidney fine and everything is fine. Her vital signs were okay. She was afebril e. Abdomen was soft. She was discharged home to be followed up by the surgeon. FINAL DIAGNOSES: Acute abdominal pain, cholelithiasis, status post surgery ____ cholecystectomy and ____. Elyssa Rodriguez MD cc: [id number] TT: 10/10/2016 14:07:58 sn
== END 2016-09-27 19:00 | disposition home or self-care (01) | DRG 494 ==
LOC: C.ER 13:35 → C.9E 16:41 → C.5T 16:55 → OBSVTOIN 09-24 11:46
PROVIDERS: ADMIT Internal Medicine; ATTEND Internal Medicine
PROC: 0DNW4ZZ Release Peritoneum, Percutaneous Endoscopic Approach (ICD-10-PCS; 2016-09-25)
PROC: 8E0W4CZ Robotic Assisted Procedure of Trunk Region, Percutaneous Endoscopic Approach (ICD-10-PCS; 2016-09-25)
PROC: 0FT44ZZ Resection of Gallbladder, Percutaneous Endoscopic Approach (ICD-10-PCS; principal; 2016-09-25 14:00)
DX: K80.12 Calculus of gallbladder with acute and chronic cholecystitis without obstruction (principal); K66.0 Peritoneal adhesions (postprocedural) (postinfection); E10.9 Type 1 diabetes mellitus without complications; J45.909 Unspecified asthma, uncomplicated; Z87.440 Personal history of urinary (tract) infections; Z79.4 Long term (current) use of insulin

== ENCOUNTER 2016-11-08 07:17 | Day surgery (SDC) | payer OTHER ==
[2016-11-08 07:23] VITALS: BMI 25.2
[2016-11-08 07:28] VITALS: O2SAT 100
--- NOTE | 2016-11-08 07:38 | C.PDOC ---
History Of Present Illness 20 y/o female presents to ED with past medical history of Type 1 DM and asthma presents with right lower abdominal pain that radiates to flank associated with nausea and vomiting for 4 days. Patient has history of pyelonephritis. Notes she cannot keep any food down, decreased appetite for several days. Last BM 3 days ago. LMP 10/18. Notes history of cholecystectomy last month. Denies fever, chills, diarrhea, urinary symptoms. Time Seen by Provider: 11/08/16 07:34 Chief Complaint (Nursing): Abdominal Pain History Per: Patient History/Exam Limitations: no limitations Onset/Duration Of Symptoms: Days Current Symptoms Are (Timing): Still Present Location Of Pain/Discomfort: RUQ, RLQ Radiation Of Pain To:: None Quality Of Discomfort: "Pain" Associated Symptoms: Nausea, Vomiting. denies: Fever, Chills, Diarrhea, Urinary Symptoms Last Bowel Movement: Days Ago (3) Recent travel outside of the [place]: No Past Medical History Reviewed: Historical Data, Nursing Documentation, Vital Signs Vital Signs: Last Vital Signs Temp 98.5 F 11/08/16 07:23 Pulse 114 H 11/08/16 07:23 Resp 20 11/08/16 07:23 BP 139/94 H 11/08/16 07:23 Pulse Ox 100 11/08/16 12:13 - Medical History PMH: Asthma, Diabetes (type 1), Chronic Kidney Disease (''KIDNEY INFECTION'') Surgical History: Cholecystectomy - [facility] Procedures FLUOROSCOPY OF SUPERIOR VENA CAVA, GUIDANCE (05/11/16) INFLUENZA VACCINATION (04/18/14) INJECT INSULIN (02/05/15) INJECT/INFUSE NEC (02/05/15) INSERTION OF INFUSION DEV INTO SUP VENA CAVA, PERC APPROACH (05/11/16) INTRODUCTION OF SERUM/TOX/VACCINE INTO MUSCLE, PERC APPROACH (04/11/16) RELEASE PERITONEUM, PERCUTANEOUS ENDOSCOPIC APPROACH (09/24/16) RESECTION OF GALLBLADDER, PERCUTANEOUS ENDOSCOPIC APPROACH (09/24/16) ROBOTIC ASSISTED PROCEDURE OF TRUNK, PERC ENDO APPROACH (09/24/16) ULTRASONOGRAPHY OF RIGHT UPPER EXTREMITY VEINS, GUIDANCE (05/11/16) Family History: States: Unknown Family Hx - Social History Hx Tobacco Use: No Hx Alcohol Use: No Hx Substance Use: No - Immunization History Hx Tetanus Toxoid Vaccination: Yes Hx Influenza Vaccination: No Hx Pneumococcal Vaccination: No Review Of Systems Except As Marked, All Systems Reviewed And Found Negative. Constitutional: Negative for: Fever ENT: Negative for: Throat Pain Cardiovascular: Negative for: Chest Pain Respiratory: Negative for: Cough, Wheezing Gastrointestinal: Positive for: Vomiting, Abdominal Pain (right flank). Negative for: Diarrhea Genitourinary: Negative for: Dysuria, Vaginal Bleeding Musculoskeletal: Negative for: Back Pain Skin: Negative for: Rash Neurological: Negative for: Dizziness Physical Exam - Physical Exam Appears: Non-toxic, Other (uncomfortable in pain) Skin: Normal Color, Warm, Dry Head: Atraumatic, Normacephalic Eye(s): bilateral: Normal Inspection Oral Mucosa: Moist Neck: Normal ROM Chest: Symmetrical Cardiovascular: Rhythm Regular Respiratory: No Rales, No Rhonchi, No Wheezing Gastrointestinal/Abdominal: Soft, Tenderness (right sided tenderness, greater to RLQ), No Guarding, No Rebound, Other (healed surgical scars) Back: Normal Inspection Extremity: Bilateral: Atraumatic, Normal Color And Temperature, Normal ROM Neurological/Psych: Oriented x3, Normal Speech Gait: Steady ED Course And Treatment - Laboratory Results Result Diagrams: 11/08/16 11:25 11/08/16 08:12 Lab Interpretation: No Acute Changes Urine POC: Positive O2 Sat by Pulse Oximetry: 100 (RA) Pulse Ox Interpretation: Normal - CT Scan/US Transvaginal Ultrasound Other Rad Studies (CT/US): Read By Radiologist, Radiology Report Reviewed CT/US Interpretation: FINDINGS: UTERUS: Measures 7.2 x 3.7 x 4.5 cm. Anteverted, normal in size and appearance. No fibroid or other mass lesion seen. ENDOMETRIUM: Measures 9 mm in diameter. Minimal fluid in the endometrial canal. CERVIX: No cervical abnormality identified. RIGHT OVARY: Measures 2.7 x 1.9 x 2.3 cm. No solid mass. Normal flow. There is a 2.4 x 1.8 x 2.2 cm hyperechoic lesion in the right ovary. LEFT OVARY: Measures 2.7 x 2.1 x 2.3 cm. No solid mass. Normal flow. FREE FLUID: There is moderate amount of complex fluid in the right adnexa and cul-de-sac. OTHER FINDINGS: None. IMPRESSION: Small amount of fluid in the endometrial canal. No evidence of intrauterine gestation. 2.4 cm echogenic mass in the right ovary could represent a complex cyst. Also noted is moderate amount of complex less hemorrhagic fluid in the pelvis and right adnexa. Ruptured ectopic cannot be entirely excluded. Please correlate clinically and with serial beta HCG levels. Medical Decision Making Medical Decision Making: Impression: Right lower abdominal pain Differential diagnosis: suspect colic, appendicitis, cystitis, Plan: * Labs * CT A/P * IV NS Toradol Prior records reviewed patient has history of pyelonephritis. Last admission for cholecystitis and lap marjorie by Dr Green Progress: test positive. Cancel CT abdomen and placed orders for BHCG and US. US shows abnormal findings Small amount of fluid in the endometrial canal. No evidence of intrauterine gestation. 2.4 cm echogenic mass in the right ovary could represent a complex cyst. Also noted is moderate amount of complex less hemorrhagic fluid in the pelvis and right adnexa. Ruptured ectopic cannot be entirely excluded. Patient continues to have abdominal pain. Morphine IVP ordered Contact ob composition board press operator Dr Fernando to evaluate, she will come to ED. 1211 Dr Fernando requests patient be prepared for OR, laporoscopy rule out ectopic Disposition - Disposition Disposition Time: 12:09 Condition: FAIR - POA Present On Arrival: None - Clinical Impression Clinical Impression: Pelvic pain during , Encounter for assessment for suspected ectopic - PA / FUEL PILOT ENGINEER / Resident Statement MD/DO has reviewed & agrees with the documentation as recorded. - Scribe Statement The provider has reviewed the documentation as recorded by the Waleskaibdylan evans All medical record entries made by the Nasra were at my direction and personally dictated by me. I have reviewed the chart and agree that the record accurately reflects my personal performance of the history, physical exam, medical decision making, and the department course for this patient. I have also personally directed, reviewed, and agree with the discharge instructions and disposition. Decision To Admit - Pt Status Changed To: Hospital Disposition Of: SDS- Endo,OR,Cath,IR - . Bed Request Type: Same Day Surgery Admitting Physician: Hermelindo Fernando Patient Diagnosis: Pelvic pain during , Encounter for assessment for suspected ectopic
[2016-11-08] MEDS ORDERED: Sodium Chloride 0.9% 1,000 ML IV ONE ×3 (07:51→15:00)
[2016-11-08] MEDS ORDERED: Sodium Chloride 0.9% 1,000 ML ONE ×2 (08:12→10:08)
[2016-11-08 08:19] LABS: BASO # 0.1 K/uL (0.0-0.2); BASO % 0.6 % (0.0-2.0); EOS # 0.1 K/uL (0.0-0.7); EOS % 0.7 % (0.0-4.0); HEMATOCRIT 39.8 % (34.0-47.0); LYMPH # 1.3 K/uL (1.0-4.3); LYMPH % 12.6 % (20.0-40.0); MEAN CELL VOLUME 89.8 fL (81.0-99.0); MEAN CORPUSCULAR HEMOGLOBIN 31.5 pg (27.0-31.0); MEAN CORPUSCULAR HGB CONC 35.1 g/dL (33.0-37.0); MEAN PLATELET VOLUME 8.1 fL (7.2-11.7); MONO # 0.6 K/uL (0.0-0.8); MONO % 5.4 % (0.0-10.0); RED CELL DISTRIBUTION WIDTH 14.2 % (11.5-14.5); WHITE BLOOD COUNT 10.6 K/uL (4.8-10.8)
[2016-11-08 08:24] LABS: CHLORIDE 98 mmol/L (98-107)
[2016-11-08 08:25] LABS: POTASSIUM 3.7 mmol/L (3.6-5.2); SODIUM 136 mmol/L (132-148)
[2016-11-08 08:27] LABS: ALB/GLOB RATIO 1.5 (1.0-2.1); BILIRUBIN,TOTAL 0.9 mg/dL (0.2-1.3); CARBON DIOXIDE 25 mmol/L (22-30); GFR AFRICAN-AMERICAN > 60; RBC URINE 8 /hpf (0-3); TOTAL PROTEIN 7.7 g/dL (6.3-8.3); URINE BACTERIA RARE (<OCC); URINE BILIRUBIN NEGATIVE (NEGATIVE); URINE BLOOD 3+ (NEGATIVE); URINE COLOR Amber (YELLOW); URINE GLUCOSE (UA) NORMAL (Normal); URINE KETONE NEGATIVE (NEGATIVE); URINE LEUKOCYTE ESTERASE 1+ Leu/uL (Negative); URINE PROTEIN 1+ mg/dL (NEGATIVE); WBC URINE 59 /hpf (0-5)
[2016-11-08 08:28] LABS: ALKALINE PHOSPHATASE 69 U/L (38-126); ALT/SGPT 31 U/L (9-52); AST/SGOT 26 U/L (14-36); BLOOD UREA NITROGEN 9 mg/dL (7-17); CALCIUM 8.6 mg/dl (8.6-10.4); GLUCOSE,RANDOM 260 mg/dL (65-105)
--- NOTE | 2016-11-08 10:23 | US ---
HISTORY: , abdominal pain COMPARISON: None available. TECHNIQUE: Transvaginal pelvic ultrasound was performed. FINDINGS: UTERUS: Measures 7.2 x 3.7 x 4.5 cm. Anteverted, normal in size and appearance. No fibroid or other mass lesion seen. ENDOMETRIUM: Measures 9 mm in diameter. Minimal fluid in the endometrial canal. CERVIX: No cervical abnormality identified. RIGHT OVARY: Measures 2.7 x 1.9 x 2.3 cm. No solid mass. Normal flow. There is a 2.4 x 1.8 x 2.2 cm hyperechoic lesion in the right ovary. LEFT OVARY: Measures 2.7 x 2.1 x 2.3 cm. No solid mass. Normal flow. FREE FLUID: There is moderate amount of complex fluid in the right adnexa and cul-de-sac. OTHER FINDINGS: None. IMPRESSION: Small amount of fluid in the endometrial canal. No evidence of intrauterine gestation. 2.4 cm echogenic mass in the right ovary could represent a complex cyst. Also noted is moderate amount of complex less hemorrhagic fluid in the pelvis and right adnexa. Ruptured ectopic cannot be entirely excluded. Please correlate clinically and with serial beta HCG levels.
[2016-11-08 11:31] LABS: HEMATOCRIT 36.1 % (34.0-47.0); MEAN CORPUSCULAR HEMOGLOBIN 31.1 pg (27.0-31.0); MEAN CORPUSCULAR HGB CONC 34.6 g/dL (33.0-37.0); MEAN PLATELET VOLUME 8.1 fL (7.2-11.7); WHITE BLOOD COUNT 9.3 K/uL (4.8-10.8)
--- NOTE | 2016-11-08 12:48 | CP.PCM.HP ---
History of Present Illness - History of Present Illness History of Present Illness: 20 yr lmp 09/29/16 here came with c/o pain on the right side and vomiting x 3. pt states pain 9/10. pt has been bleeding snce yesterday.pt was not planning to get .undesired preg. obhx primi\ pmh denies med none all shellfish psh appendectomy soch denies and +tenderness+guarding, no rebound sse min blood pelvic exam ext gen old blood,cervix closed, ut antverted, no pal mass,+ten on right side Present on Admission - Present on Admission Any Indicators Present on Admission: No History of DVT/PE: No History of Uncontrolled Diabetes: No Urinary Catheter: No Decubitus Ulcer Present: No Review of Systems - Reproductive: Female Reproductive:Female: Pelvic Pain Past Patient History - Infectious Disease Hx of Infectious Diseases: None - Tetanus Immunizations Tetanus Immunization: Unknown - Past Medical History & Family History Past Medical History?: Yes - Past Social History Smoking Status: Never Smoked - CARDIAC Hx Atrial Fibrillation: No Hx Cardia Arrhythmia: No Hx Congestive Heart Failure: No - PULMONARY Hx Asthma: Yes - NEUROLOGICAL Hx Neurological Disorder: No - HEENT Hx HEENT Problems: No - RENAL Hx Chronic Kidney Disease: Yes (''KIDNEY INFECTION'') - ENDOCRINE/METABOLIC Hx Endocrine Disorders: Yes Hx Diabetes Mellitus Type 1: Yes - INTEGUMENTARY Hx Dermatological Problems: No - MUSCULOSKELETAL/RHEUMATOLOGICAL Hx Musculoskeletal Disorders: No Hx Falls: No - GASTROINTESTINAL Hx Gastrointestinal Disorders: Yes Hx Nausea: Yes Hx Vomiting: Yes - GENITOURINARY/GYNECOLOGICAL Hx Genitourinary Disorders: Yes Hx Urinary Tract Infection: Yes - PSYCHIATRIC Hx Substance Use: No - SURGICAL HISTORY Hx Cholecystectomy: Yes - ANESTHESIA Hx Anesthesia: Yes Hx Anesthesia Reactions: No Hx Malignant Hyperthermia: No Meds Allergies/Adverse Reactions: Allergies Allergy/AdvReac Type Severity Reaction Status Date / Time shellfish derived Allergy SWELLING Verified 11/08/16 07:22 Physical Exam - Exam External exam: NORMAL EXTERNAL EXAM (blood) Speculum exam: Vaginal Bleeding (min vb) Bimanual exam: Adenexal Mass (+adenxal ten), NORMAL BIMANUAL EXAM Results - Vital Signs Recent Vital Signs: Last Vital Signs Temp 98.4 F 11/08/16 12:19 Pulse 105 H 11/08/16 12:19 Resp 14 11/08/16 12:19 BP 138/91 H 11/08/16 12:19 Pulse Ox 100 11/08/16 12:19 - Labs Result Diagrams: 11/08/16 11:25 11/08/16 08:12 Labs: Laboratory Results - last 24 hr 11/08/16 11/08/16 11/08/16 08:12 08:12 08:12 WBC 10.6 RBC 4.43 Hgb 14.0 Hct 39.8 MCV 89.8 MCH 31.5 H MCHC 35.1 RDW 14.2 Plt Count 317 D MPV 8.1 Neut % (Auto) 80.7 H Lymph % (Auto) 12.6 L [place] % (Auto) 5.4 Eos % (Auto) 0.7 Baso % (Auto) 0.6 Neut # 8.6 H Lymph # 1.3 [place] # 0.6 Eos # 0.1 Baso # 0.1 Sodium 136 Potassium 3.7 Chloride 98 Carbon Dioxide 25 Anion Gap 17 BUN 9 Creatinine 0.6 L Est GFR ( Amer) > 60 Est GFR (Non-Af Amer) > 60 Random Glucose 260 H Calcium 8.6 Total Bilirubin 0.9 AST 26 ALT 31 Alkaline Phosphatase 69 Total Protein 7.7 Albumin 4.6 Globulin 3.1 Albumin/Globulin Ratio 1.5 Beta HCG, Quant 128.31 Urine Color Eliza Urine Clarity Hazy Urine pH 5.0 Ur Specific Starlight 1.021 Urine Protein 1+ H Urine Glucose (UA) Normal Urine Ketones Negative Urine Blood 3+ H Urine Nitrate Negative Urine Bilirubin Negative Urine Urobilinogen 2.0 H Ur Leukocyte Esterase 1+ H Urine WBC (Auto) 59 H Urine RBC (Auto) 8 H Ur Squamous Epith Cells 5 Urine Bacteria Rare Urine HCG, Qual Positive 11/08/16 11:25 WBC 9.3 RBC 4.01 Hgb 12.5 Hct 36.1 MCV 90.0 MCH 31.1 H MCHC 34.6 RDW 14.0 Plt Count 291 MPV 8.1 Neut % (Auto) Lymph % (Auto) [place] % (Auto) Eos % (Auto) Baso % (Auto) Neut # Lymph # [place] # Eos # Baso # Sodium Potassium Chloride Carbon Dioxide Anion Gap BUN Creatinine Est GFR ( Amer) Est GFR (Non-Af Amer) Random Glucose Calcium Total Bilirubin AST ALT Alkaline Phosphatase Total Protein Albumin Globulin Albumin/Globulin Ratio Beta HCG, Quant Urine Color Urine Clarity Urine pH Ur Specific [place] Urine Protein Urine Glucose (UA) Urine Ketones Urine Blood Urine Nitrate Urine Bilirubin Urine Urobilinogen Ur Leukocyte Esterase Urine WBC (Auto) Urine RBC (Auto) Ur Squamous Epith Cells Urine Bacteria Urine HCG, Qual Assessment & Plan - Assessment and Plan (Free Text) Assessment: 20 yr at with 6weeks possible ruptured ectopic ectopic preg/ruptured hemmoragic cyst Plan: Plan Admit to vegetable sorter for Diagnostic laproscopy possible removal of ectopic npo/ivf labs Gadiel szymanski ORaware informed consent taken r/a/b discussed - Date & Time Date: 11/08/16 Time: 13:00
[2016-11-08] MEDS ORDERED: cefOXitin IV 2 gm in Dextrose 2 GM/50 ML BAG IVPB ONE (13:16)
[2016-11-08] MEDS ORDERED: Lactated Ringer's 1,000 ML IV ONE ×2 (13:20→14:28)
[2016-11-08] MEDS ORDERED: Propofol 10 mg/ml Inj (20 ML) ONE (13:25)
[2016-11-08] MEDS ORDERED: Succinylcholine Chloride 20 mg/ml Syr (5 ml) IV ONE (14:16)
[2016-11-08] MEDS ORDERED: Neostigmine Methylsulfate 3mg/3ml Syringe IV ONE (14:16)
[2016-11-08] MEDS ORDERED: Lactated Ringer's 1,000 ML IV SCH (14:45)
[2016-11-08] MEDS: HYDROmorphone 0.5 mg/0.5 ml ISec IVP PRN ×2 (14:50→15:19)
[2016-11-08 16:51] VITALS: BP 145/78; PULSE 90; RESP 18; TEMP 97.4
--- NOTE | 2016-11-08 17:29 | PCM.SURG1 ---
Surgeon's Initial Post Op Note - Surgeon's Notes Surgeon: dr lopez Road Conductor: dr raymond Type of Anesthesia: General LMA Anesthesia Administered By: dr ha Pre-Operative Diagnosis: 20 yr with pelvic pain r/o ruptured ectopic Operative Findings: rupturedright ectopic/hemoperitonium Post-Operative Diagnosis: same Operation Performed: laprscopic emoval of right ectopic/removal of hemoperitoneum Specimen/Specimens Removed: right ectopic Estimated Blood Loss: EBL {In ML}: 20 Blood Products Given: N/A Drains Used: No Drains Post-Op Condition: Good Date of Surgery/Procedure: 11/08/16 Time of Surgery/Procedure: 14:00
--- NOTE | 2016-11-08 19:58 | OP ---
PROCEDURE DATE: 11/08/2016 PREOPERATIVE DIAGNOSES: A 20-year-old 1, para 0 at 6 weeks with pelvic pain, rule out ruptur ed ectopic, rule out hemorrhage. POSTOPERATIVE DIAGNOSIS: Ruptured right ectopic. SURGEON: Hermelindo Fernando MD HOME THERAPY TEACHER SURGEON: Dr. Luque, who was present throughout the surgery for retraction, exposure and hol ding the camera. ANESTHESIA: General anesthesia. ANESTHESIOLOGIST: Dr. Hernandez. COMPLICATIONS: None. ESTIMATED BLOOD LOSS: 20 mL, hemoperitoneum 200 mL. PROCEDURE PERFORMED: Laparoscopic removal of right ectopic and removal of hemoperitoneum. COMPLICATIONS: None. PROCEDURE: After informed consent was obtained, the patient was brought to the operating room, place d on the table where general anesthesia was given. When anesthesia was found to be adequate, the pat ient was prepped and draped in a normal sterile fashion. Examination of uterus was found to be 6-7 w eeks' size. After that a Best catheter was inserted under sterile condition. Then the anterior lip of the cervix was grasped with the tenaculum. Gentle dilatation of the cervix was done and a HUMI c atheter was inserted. After that, attention was directed towards the patient's abdomen. Then an inc ision was made at the lower end of the umbilicus. Then the fascia was lifted up with Christopher's. It w as cut and then the peritoneum excised with the Metzenbaum scissors. It was held up with 2-0 Vicryl. Then the Michelle was placed. Intra-abdominal Michelle placement was verified with gas and with the ca lin went we went in and we the right ectopic, which was 2-3 cm ruptured and the hemoperitoneum was there. The decision was to make 2 more ports on the right and the left side; a 5 mm port was on the left side and a 10 mm port was placed on the right side. After that, irrigation was done and th e hemoperitoneum was taken. After that a LigaSure was placed at the site of the ectopic by holding f rom the tube on the right side with clamp and then the ectopic was removed using a LigaSure. T he tube was not removed. After that, a lot of irrigation was done. Hemostatic, no bleeding. After that, it was looked back again and hemostatic. The and tubes on the other side looked normal. After that, a lot of irrigation and then it was taken out, hemostatic. Then, the decision was to re move all the ports, so the gas was stopped. All the gas was removed. After that the fascia at the s ite of the umbilicus was closed using 2-0 Vicryl, fascia at the site of the was closed with 2-0 Vicryl and the skin was closed using 4-0 Monocryl. Dermabond placed. The patient tolerated the pro cedure well. Laps and instruments correct x 2. After that, the HUMI was removed. A Best catheter was inserted. The patient was discharged home after stabilizing in the recovery. Hermelindo Fernando MD cc: [id number] TT: 11/08/2016 19:57:48 dn
== END 2016-11-08 18:45 | disposition home or self-care (01) ==
LOC: C.ER 07:17 → C.SDS 07:17
PROVIDERS: ATTEND Obstetrics & Gynecology
DX: O00.10 Tubal pregnancy without intrauterine pregnancy (principal)
CPT/HCPCS: 59150; 76830; 80053; 81001; 82948; 84702; 84703; 85025; 85027; 85610; 85730; 86850; 86900; 88302; 96360; 96374; J0694; J1100; J1170; J1885; J2270; J2405; J2704; J2710; J3010; J7040; J7120

== ENCOUNTER 2016-11-12 20:21 | Emergency (ER) | payer OTHER ==
[2016-11-12 20:22] VITALS: BMI 25.2
[2016-11-12 20:44] VITALS: RESP 20
[2016-11-12] MEDS ORDERED: Sodium Chloride 0.9% 1,000 ML IV ONE (20:59)
[2016-11-12 21:16] LABS: RBC URINE 18 /hpf (0-3); TRANSITIONAL EPITHIAL 2 /hpf (0-3); URINE BACTERIA FEW (<OCC); URINE BILIRUBIN NEGATIVE (NEGATIVE); URINE BLOOD 2+ (NEGATIVE); URINE COLOR Yellow (YELLOW); URINE GLUCOSE (UA) 1+ mg/dL (Normal); URINE KETONE NEGATIVE (NEGATIVE); URINE LEUKOCYTE ESTERASE 2+ Leu/uL (Negative); URINE PROTEIN 2+ mg/dL (NEGATIVE); URINE UROBILINOGEN NORMAL mg/dL (0.2-1.0); WBC URINE 28 /hpf (0-5)
[2016-11-12] MEDS ORDERED: Sodium Chloride 0.9% 1,000 ML ONE (21:17)
[2016-11-12 21:23] LABS: BASO % 0.4 % (0.0-2.0); EOS # 0.1 K/uL (0.0-0.7); EOS % 0.5 % (0.0-4.0); HEMATOCRIT 38.6 % (34.0-47.0); LYMPH # 1.5 K/uL (1.0-4.3); LYMPH % 14.5 % (20.0-40.0); MEAN CELL VOLUME 88.6 fL (81.0-99.0); MEAN CORPUSCULAR HEMOGLOBIN 31.3 pg (27.0-31.0); MEAN CORPUSCULAR HGB CONC 35.4 g/dL (33.0-37.0); MEAN PLATELET VOLUME 8.2 fL (7.2-11.7); MONO # 0.5 K/uL (0.0-0.8); MONO % 5.2 % (0.0-10.0); RED CELL DISTRIBUTION WIDTH 13.9 % (11.5-14.5); WHITE BLOOD COUNT 10.2 K/uL (4.8-10.8)
[2016-11-12 21:30] LABS: CHLORIDE 96 mmol/L (98-107)
[2016-11-12 21:31] LABS: POTASSIUM 3.5 mmol/L (3.6-5.2); SODIUM 140 mmol/L (132-148)
[2016-11-12 21:33] LABS: ALB/GLOB RATIO 1.5 (1.0-2.1); ALKALINE PHOSPHATASE 60 U/L (38-126); ALT/SGPT 29 U/L (9-52); AST/SGOT 22 U/L (14-36); BILIRUBIN,TOTAL 0.6 mg/dL (0.2-1.3); BLOOD UREA NITROGEN 12 mg/dL (7-17); CARBON DIOXIDE 32 mmol/L (22-30); GFR AFRICAN-AMERICAN > 60; GLUCOSE,RANDOM 225 mg/dL (65-105); TOTAL PROTEIN 7.3 g/dL (6.3-8.3)
[2016-11-12 21:34] LABS: CALCIUM 8.6 mg/dl (8.6-10.4)
[2016-11-12] MEDS ORDERED: Iodixanol 320 mg/ml 150 ml Bottle IV ONE (22:27)
--- NOTE | 2016-11-12 23:25 | CT ---
EXAM: CT Abdomen and Pelvis With Intravenous Contrast CLINICAL HISTORY: 20 years old, female; Pain and signs and symptoms; Vomiting; Abdominal pain; Localized; Right lower quadrant (rlq); Prior surgery; Surgery date: 3-7 days post-operative; Additional info: Pain and vomiting after surgery for ectopic preg. TECHNIQUE: Axial computed tomography images of the abdomen and pelvis with intravenous contrast. This CT exam was performed using one or more of the following dose reduction techniques: automated exposure control, adjustment of the mA and/or kV according to patient size, and/or use of iterative reconstruction technique. Coronal and sagittal reformatted images were created and reviewed. CONTRAST: 100 mL of [id number] administered intravenously. EXAM DATE/TIME: 11/12/2016 9:58 PM COMPARISON: CT - ABD PELVIS W/O PO OR IV CONT 03/30/2016 4:40:24 AM FINDINGS: Lower thorax: Heart size is normal. There is a small hiatal hernia. Motion limits evaluation of the lung bases. ABDOMEN: Liver: There is fatty infiltration of the liver. Gallbladder and bile ducts: Gallbladder is not visualized. Common duct is normal in caliber. Pancreas: unremarkable Spleen: unremarkable Adrenals: unremarkable Kidneys and ureters: There is right renal scarring. There is a nonobstructing left renal stone.There is no pelvocaliectasis or ureterectasis. Stomach and bowel: Stomach is partially distended. Rotation is normal. There are mildly dilated small bowel loops in the upper abdomen. Distal small bowel is mildly distended with fluid. Terminal ileum is unremarkable. Appendix is unremarkable.Colon is incompletely distended which limits evaluation. Appendix: See above. PELVIS: Bladder: unremarkable Reproductive: Uterus and adnexal structures are unremarkable. ABDOMEN and PELVIS: Intraperitoneal space: There is free fluid in the cul-de-sac. There is no free air. Bones/joints: There are multiple small sclerotic lesions in the pelvis, sacrum and proximal femurs. Soft tissues: unremarkable Vasculature: Vascular structures are unremarkable. Lymph nodes: There is no pathologic adenopathy. IMPRESSION: Fatty liver, no acute solid visceral abnormality; free fluid in the pelvis, no adnexal masses or cysts; probable ileus, no obstruction; osteopoikilosis Additional findings as described above.
--- NOTE | 2016-11-12 23:38 | C.PDOC ---
Time Seen by Provider: 11/12/16 20:42 Chief Complaint (Nursing): Abdominal Pain History Per: Patient Onset/Duration Of Symptoms: Days (4) Current Symptoms Are (Timing): Still Present Context: Other (after surgery for ectopic ) Severity: Moderate Location Of Pain/Discomfort: RLQ, LLQ, Suprapubic Quality Of Discomfort: "Pain" Associated Symptoms: Nausea, Vomiting Alleviating Factors: None Additional History Per: Prior Records Past Medical History Reviewed: Historical Data, Nursing Documentation, Vital Signs Vital Signs: Last Vital Signs Temp 98.4 F 11/12/16 20:33 Pulse 104 H 11/12/16 20:33 Resp 20 11/12/16 20:33 BP 169/97 H 11/12/16 20:33 Pulse Ox 100 11/12/16 20:33 - Medical History PMH: Asthma, Diabetes (type 1), Chronic Kidney Disease (''KIDNEY INFECTION'') Surgical History: Cholecystectomy - [facility] Procedures FLUOROSCOPY OF SUPERIOR VENA CAVA, GUIDANCE (05/11/16) INFLUENZA VACCINATION (04/18/14) INJECT INSULIN (02/05/15) INJECT/INFUSE NEC (02/05/15) INSERTION OF INFUSION DEV INTO SUP VENA CAVA, PERC APPROACH (05/11/16) INTRODUCTION OF SERUM/TOX/VACCINE INTO MUSCLE, PERC APPROACH (04/11/16) RELEASE PERITONEUM, PERCUTANEOUS ENDOSCOPIC APPROACH (09/24/16) RESECTION OF GALLBLADDER, PERCUTANEOUS ENDOSCOPIC APPROACH (09/24/16) ROBOTIC ASSISTED PROCEDURE OF TRUNK, PERC ENDO APPROACH (09/24/16) ULTRASONOGRAPHY OF RIGHT UPPER EXTREMITY VEINS, GUIDANCE (05/11/16) Family History: States: Unknown Family Hx - Social History Hx Tobacco Use: No Hx Alcohol Use: No Hx Substance Use: No - Immunization History Hx Tetanus Toxoid Vaccination: Yes Hx Influenza Vaccination: No Hx Pneumococcal Vaccination: No Review Of Systems Except As Marked, All Systems Reviewed And Found Negative. Constitutional: Negative for: Fever, Weakness Cardiovascular: Negative for: Chest Pain Respiratory: Negative for: Shortness of Breath Gastrointestinal: Positive for: Nausea, Vomiting, Abdominal Pain. Negative for : Diarrhea, Melena, Hematochezia, Hematemesis Musculoskeletal: Negative for: Neck Pain, Back Pain Skin: Negative for: Rash Neurological: Negative for: Weakness, Numbness, Seizures, Altered Mental Status Physical Exam - Physical Exam Appears: Non-toxic, No Acute Distress Skin: Normal Color, Warm, Dry, No Rash Head: Atraumatic, Normacephalic Eye(s): bilateral: PERRL, EOMI Neck: Normal ROM, Supple Cardiovascular: Rhythm Regular Respiratory: Normal Breath Sounds, No Accessory Muscle Use Gastrointestinal/Abdominal: Soft, Tenderness (nonspecific lower), No Guarding, No Rebound Back: No CVA Tenderness Extremity: Normal ROM Neurological/Psych: Oriented x3, Normal Motor, Normal Sensation ED Course And Treatment - Laboratory Results Result Diagrams: 11/12/16 21:15 11/12/16 21:15 Interpretation Of Abnormal: Possible UTI. Urine POC: Negative O2 Sat by Pulse Oximetry: 100 Pulse Ox Interpretation: Normal - CT Scan/US CT abdomen/pelvis Other Rad Studies (CT/US): Read By Radiologist, Radiology Report Reviewed CT/US Interpretation: IMPRESSION: Fatty liver, no acute solid visceral abnormality; free fluid in the pelvis,. no adnexal masses or cysts; probable ileus, no obstruction; osteopoikilosis. . Additional findings as described above. Progress - Interventions Interventions:: Observation, Intravenous fluid - Medications Administered Intravenous: Antiemetic, H-2 jaison, NSAID - Data Reviewed Data Reviewed: Lab, Diagnostic imaging, Old records - Patient Status Patient status: Mostly improved - Continuity of Care Discussed patient case with:: Patient, ED Nurse Discussed pt. case with career development consultant/specialty: Obstetrics/Gynecology - Patient Plan Patient Plan: Discharge, F/U with PCP, Continue present meds Disposition Discussed With : Janeen Brunner (Brewery Technician) Comment: She states that the CT findings are expected after the surgery and no specific treatment is required. Counseled Patient/Family Regarding: Studies Performed, Diagnosis, Need For Followup, Rx Given - Disposition Referrals: Wesley Martinez MD [Staff Provider] - Bobby Mendoza [Staff Provider] - Disposition: HOME/ ROUTINE Disposition Time: 23:39 Condition: IMPROVED Additional Instructions: Drink plenty of fluids. Follow up with your primary doctor and the Construction And Maintenance Inspector. Return to the ER if you develop fever, not tolerating fluids, worsening of symptoms or if you have any other concerns. Prescriptions: Famotidine [Pepcid] 20 mg PO BID #30 tab Metoclopramide [Reglan] 1 tab PO TID PRN #15 tab PRN Reason: Nausea/Vomiting Sulfamethoxazole/Trimethoprim [Bactrim DS 800 mg-160 mg] 1 tab PO BID #14 tab traMADol/Acetaminophen [Ultracet 325 MG-37.5 MG] 1 tab PO Q4 PRN #20 tab PRN Reason: Pain, Severe (8-10) Instructions: Ileus (ED) - Clinical Impression Clinical Impression: Ileus, Pain following surgery or procedure
[2016-11-13 00:09] VITALS: BP 152/92; PULSE 103; TEMP 98.8; O2SAT 99
== END 2016-11-13 00:08 | disposition home or self-care (01) ==
LOC: C.ER 20:21
DX: O75.4 Other complications of obstetric surgery and procedures (principal); Z3A.00 Weeks of gestation of pregnancy not specified
CPT/HCPCS: 74177; 80053; 81001; 83690; 84702; 84703; 85025; 96361; 96374; 96375; 99284; J1885; J2405; J2765; J7040; Q9965

== ENCOUNTER 2016-11-15 05:56 | Emergency (ER) | payer OTHER ==
[2016-11-15 05:57] VITALS: BMI 25.2
[2016-11-15 06:13] VITALS: TEMP 98
[2016-11-15] MEDS ORDERED: Sodium Chloride 0.9% 1,000 ML IV ONE (06:25)
[2016-11-15] MEDS ORDERED: Sodium Chloride 0.9% 1,000 ML ONE (06:37)
--- NOTE | 2016-11-15 06:38 | C.PDOC ---
History Of Present Illness Patient is a 21 year old female who is SP laparoscopic surgery for an ectopic 1 week ago. Since then patient has had vomiting but today with dysuria and diffuse abdominal pain. Patient has been taking antinausea medication with no relief. Denies fever or diarrhea. Time Seen by Provider: 11/15/16 06:17 Chief Complaint (Nursing): Abdominal Pain History Per: Patient History/Exam Limitations: no limitations Onset/Duration Of Symptoms: Days (7) Current Symptoms Are (Timing): Still Present Location Of Pain/Discomfort: Diffuse Radiation Of Pain To:: None Quality Of Discomfort: Unable To Describe Associated Symptoms: Nausea, Vomiting, Urinary Symptoms (Dysuria) Exacerbating Factors: None Alleviating Factors: None Recent travel outside of the [place]: No Abnormal Vaginal Bleeding: No Past Medical History Reviewed: Historical Data, Nursing Documentation, Vital Signs Vital Signs: Last Vital Signs Temp 98 F 11/15/16 06:07 Pulse 109 H 11/15/16 06:07 Resp 20 11/15/16 06:07 BP 138/90 11/15/16 06:07 Pulse Ox 100 11/15/16 06:44 - Medical History PMH: Asthma, Diabetes (type 1), Chronic Kidney Disease (''KIDNEY INFECTION'') Surgical History: Cholecystectomy - [facility] Procedures FLUOROSCOPY OF SUPERIOR VENA CAVA, GUIDANCE (05/11/16) INFLUENZA VACCINATION (04/18/14) INJECT INSULIN (02/05/15) INJECT/INFUSE NEC (02/05/15) INSERTION OF INFUSION DEV INTO SUP VENA CAVA, PERC APPROACH (05/11/16) INTRODUCTION OF SERUM/TOX/VACCINE INTO MUSCLE, PERC APPROACH (04/11/16) RELEASE PERITONEUM, PERCUTANEOUS ENDOSCOPIC APPROACH (09/24/16) RESECTION OF GALLBLADDER, PERCUTANEOUS ENDOSCOPIC APPROACH (09/24/16) ROBOTIC ASSISTED PROCEDURE OF TRUNK, PERC ENDO APPROACH (09/24/16) ULTRASONOGRAPHY OF RIGHT UPPER EXTREMITY VEINS, GUIDANCE (05/11/16) Family History: States: Unknown Family Hx - Social History Hx Tobacco Use: No Hx Alcohol Use: No Hx Substance Use: No - Immunization History Hx Tetanus Toxoid Vaccination: Yes Hx Influenza Vaccination: No Hx Pneumococcal Vaccination: No Review Of Systems Constitutional: Negative for: Fever Gastrointestinal: Positive for: Vomiting, Abdominal Pain. Negative for: Diarrhea Genitourinary: Positive for: Dysuria. Negative for: Frequency, Hematuria, Vaginal Discharge, Vaginal Bleeding Musculoskeletal: Negative for: Back Pain Physical Exam - Physical Exam Appears: Non-toxic Skin: Normal Color, Warm, Dry Head: Atraumatic, Normacephalic Eye(s): bilateral: Normal Inspection, PERRL, EOMI Oral Mucosa: Moist Chest: Symmetrical, No Tenderness Cardiovascular: Rhythm Regular, No Murmur Respiratory: Normal Breath Sounds, No Rhonchi, No Wheezing Gastrointestinal/Abdominal: Soft, Tenderness (Mildly diffuse), No Distention, No Guarding, No Rebound, Other (Healing scars at periumbilical and RLQ.) Back: CVA Tenderness (Right) Neurological/Psych: Oriented x3, Normal Speech, Normal Cognition Gait: Steady ED Course And Treatment O2 Sat by Pulse Oximetry: 100 (Room air) Pulse Ox Interpretation: Normal Progress Note: CT of abd/pel w/ PO contrast, blood work and urinalysis ordered. Reglan, morphine IV and IV fluids administered. Disposition - Disposition Disposition Time: 06:54 Condition: STABLE - Clinical Impression Clinical Impression: Vomiting, Abdominal pain, Postoperative generalized abdominal pain - Scribe Statement The provider has reviewed the documentation as recorded by the Scribe Faraz Hess All medical record entries made by the Scribe were at my direction and personally dictated by me. I have reviewed the chart and agree that the record accurately reflects my personal performance of the history, physical exam, medical decision making, and the department course for this patient. I have also personally directed, reviewed, and agree with the discharge instructions and disposition. Physician Patient Turnover Patient Signed Over To: Mirna Ugarte Handoff Comments: pending labs, Abd CT and dispo
[2016-11-15 06:41] LABS: BASO # 0.1 K/uL (0.0-0.2); EOS # 0.1 K/uL (0.0-0.7); MONO # 0.7 K/uL (0.0-0.8)
[2016-11-15] MEDS ORDERED: Iohexol 240 (50 ml) ONE (06:46)
[2016-11-15 06:48] LABS: POTASSIUM 3.5 mmol/L (3.6-5.2); SODIUM 135 mmol/L (132-148)
[2016-11-15 06:50] LABS: BILIRUBIN,TOTAL 1.1 mg/dL (0.2-1.3); GFR AFRICAN-AMERICAN > 60
[2016-11-15 06:51] LABS: ALB/GLOB RATIO 1.4 (1.0-2.1); ALKALINE PHOSPHATASE 55 U/L (38-126); ALT/SGPT 23 U/L (9-52); AST/SGOT 37 U/L (14-36); BASO % 0.9 % (0.0-2.0); BLOOD UREA NITROGEN 6 mg/dL (7-17); CALCIUM 8.8 mg/dl (8.6-10.4); CARBON DIOXIDE 28 mmol/L (22-30); EOS % 0.5 % (0.0-4.0); GLUCOSE,RANDOM 254 mg/dL (65-105); HEMATOCRIT 41.3 % (34.0-47.0); LYMPH # 2.3 K/uL (1.0-4.3); LYMPH % 23.9 % (20.0-40.0); MEAN CELL VOLUME 88.8 fL (81.0-99.0); MEAN CORPUSCULAR HGB CONC 34.9 g/dL (33.0-37.0); MEAN PLATELET VOLUME 7.9 fL (7.2-11.7); MONO % 6.9 % (0.0-10.0); RED CELL DISTRIBUTION WIDTH 13.7 % (11.5-14.5); TOTAL PROTEIN 7.7 g/dL (6.3-8.3); WHITE BLOOD COUNT 9.8 K/uL (4.8-10.8)
[2016-11-15 06:54] LABS: CHLORIDE 95 mmol/L (98-107)
[2016-11-15] MEDS ORDERED: Iohexol 240 (50 ml) PO ONE (06:56)
[2016-11-15 07:14] LABS: RBC URINE 7 /hpf (0-3); URINE BILIRUBIN NEGATIVE (NEGATIVE); URINE COLOR Amber (YELLOW); URINE GLUCOSE (UA) NORMAL (Normal); URINE KETONE NEGATIVE (NEGATIVE); URINE LEUKOCYTE ESTERASE 2+ Leu/uL (Negative); URINE PROTEIN 2+ mg/dL (NEGATIVE); WBC URINE 43 /hpf (0-5)
[2016-11-15 07:15] LABS: URINE BLOOD 1+ (NEGATIVE)
--- NOTE | 2016-11-15 09:22 | CT ---
PROCEDURE: CT Abdomen and Pelvis with Oral contrast. HISTORY: abd pain s/p laparascopic surgery 1 week COMPARISON: 11/12/2016 TECHNIQUE: Contiguous axial images of the abdomen and pelvis. Oral contrast was administered. No IV contrast given. Coronal and Sagittal reformats generated. Radiation dose: Total exam DLP = 825 mGy-cm. This CT exam was performed using one or more of the following dose reduction techniques: Automated exposure control, adjustment of the mA and/or kV according to patient size, and/or use of iterative reconstruction technique. FINDINGS: LOWER THORAX: Unremarkable. LIVER: Unremarkable. No gross lesion or ductal dilatation. GALLBLADDER AND BILE DUCTS: Unremarkable. PANCREAS: Unremarkable. No mass. No ductal dilatation. SPLEEN: Unremarkable. No splenomegaly. ADRENALS: Unremarkable. KIDNEYS AND URETERS: Unremarkable. No stone or hydronephrosis. BLADDER: Grossly unremarkable. REPRODUCTIVE: Unremarkable. APPENDIX: Unremarkable. BOWEL: Unremarkable. No obstruction. No gross mural thickening. PERITONEUM: There is some mild persistent fluid identified in the cul-de-sac region when compared to the prior study although minimally decreased. The lack of intravenous contrast limits evaluation for wall enhancement. LYMPH NODES: Unremarkable. No enlarged lymph nodes. VASCULATURE: Unremarkable. No aortic aneurysm. BONES: No fracture or destructive lesion. OTHER FINDINGS: None. IMPRESSION: No appreciable interval change from prior study, and without appreciable acute inflammatory process noted. No CT scan evidence of appendicitis. There is some mild persistent fluid identified in the cul-de-sac and right pelvis, minimally decreased from the prior study. Lack of intravenous contrast limits evaluation for wall enhancement, and therefore abscess evaluation. Bladder is unremarkable. No new adnexal masses are identified. No CT scan evidence of free air. .
[2016-11-15 10:01] VITALS: BP 158/92; PULSE 86; RESP 18; O2SAT 98
== END 2016-11-15 10:01 | disposition home or self-care (01) ==
LOC: C.ER 05:56
DX: G89.18 Other acute postprocedural pain (principal); R10.84 Generalized abdominal pain
CPT/HCPCS: 74176; 80053; 81001; 83690; 84703; 85025; 96361; 96374; 96375; 99285; J1885; J2270; J2405; J2765; J7040; Q9966

== ENCOUNTER 2016-12-11 18:58 | Emergency (ER) | payer OTHER ==
[2016-12-11 18:58] VITALS: BMI 25.2
[2016-12-11 19:03] VITALS: O2SAT 100
[2016-12-11] MEDS ORDERED: Sodium Chloride 0.9% 1,000 ML IV ONE (19:28)
--- NOTE | 2016-12-11 19:32 | C.PDOC ---
History Of Present Illness 21 yo female, hx of previous ectopic, presents with ruq abdominal pain. pt states pain x 3 days. no fevers, (+)nausea/vomiting (-)diarrhea. s/p cholecystomy in september. Time Seen by Provider: 12/11/16 19:23 Chief Complaint (Nursing): GI Problem Past Medical History Reviewed: Historical Data, Nursing Documentation, Vital Signs Vital Signs: Last Vital Signs Temp 98.0 F 12/11/16 22:18 Pulse 82 12/11/16 22:18 Resp 16 12/11/16 22:18 BP 128/84 12/11/16 22:18 Pulse Ox 100 12/11/16 22:18 - Medical History PMH: Asthma, Diabetes (type 1), Chronic Kidney Disease (''KIDNEY INFECTION'') Denies: Atrial Fibrillation, Cardia Arrhythmia, CHF Surgical History: Cholecystectomy - [facility] Procedures FLUOROSCOPY OF SUPERIOR VENA CAVA, GUIDANCE (05/11/16) INFLUENZA VACCINATION (04/18/14) INJECT INSULIN (02/05/15) INJECT/INFUSE NEC (02/05/15) INSERTION OF INFUSION DEV INTO SUP VENA CAVA, PERC APPROACH (05/11/16) INTRODUCTION OF SERUM/TOX/VACCINE INTO MUSCLE, PERC APPROACH (04/11/16) RELEASE PERITONEUM, PERCUTANEOUS ENDOSCOPIC APPROACH (09/24/16) RESECTION OF GALLBLADDER, PERCUTANEOUS ENDOSCOPIC APPROACH (09/24/16) ROBOTIC ASSISTED PROCEDURE OF TRUNK, PERC ENDO APPROACH (09/24/16) ULTRASONOGRAPHY OF RIGHT UPPER EXTREMITY VEINS, GUIDANCE (05/11/16) Family History: States: Unknown Family Hx - Social History Hx Tobacco Use: No Hx Alcohol Use: No Hx Substance Use: No - Immunization History Hx Tetanus Toxoid Vaccination: Yes Hx Influenza Vaccination: No Hx Pneumococcal Vaccination: No Review Of Systems Except As Marked, All Systems Reviewed And Found Negative. Gastrointestinal: Positive for: Nausea, Abdominal Pain. Negative for: Vomiting Physical Exam - Physical Exam Appears: Well, No Acute Distress Skin: Normal Color, Warm, Dry Eye(s): bilateral: Normal Inspection, PERRL, EOMI Nose: Normal Throat: Normal Neck: Normal Cardiovascular: Rhythm Regular Respiratory: Normal Breath Sounds Gastrointestinal/Abdominal: Normal Exam, Soft, Tenderness (ruq), No Guarding, No Rebound Back: Normal Inspection Extremity: Normal ROM ED Course And Treatment - Laboratory Results Result Diagrams: 12/11/16 20:00 12/11/16 19:20 O2 Sat by Pulse Oximetry: 100 - CT Scan/US Abdominal US Other Rad Studies (CT/US): Read By Radiologist, Radiology Report Reviewed CT/US Interpretation: EXAM: US Abdomen Complete. CLINICAL HISTORY: 21 years old, female; Pain; Abdominal pain; Flank; Right; Prior surgery; Surgery date: 1- 6 months;. Additional info: Ruq pain eval cbd. TECHNIQUE: Real-time ultrasound of the abdomen (complete) with image documentation. COMPARISON: CT - ABD PELVIS IV CONTRAST ONLY 11/12/2016 10:40:54 PM. FINDINGS: Liver: Enlarged , 19.0 cm. Fatty infiltration. No mass. No intrahepatic ductal dilatation. Gallbladder: Cholecystectomy. Common bile duct: No dilatation. No stones. Pancreas: Unremarkable as visualized. Kidneys: Normal echogenicity. No hydronephrosis. Spleen: No splenomegaly. Aorta: Unremarkable. No aneurysm. Inferior vena cava: Unremarkable. Free fluid: No significant free fluid. IMPRESSION: 1. No acute findings. 2. Non-acute findings are described above Medical Decision Making Medical Decision Making: r/o choledolithsiais, pancreatitis, colitis, uti- labs imaging pending 1015: US neg, no cbd dilatiation, bili normal, abd pelvis ct neg. pt reassesed. pain resolved. asking for d/c. non specific leukocytosis. pt notified for outpt f/u and return precautions. no cough/cadiopulm complaints Disposition - Disposition Referrals: Ray Tan MD [Staff Provider] - Disposition: HOME/ ROUTINE Disposition Time: 22:16 Condition: STABLE Additional Instructions: please follow up with your doctor. return to er with worsening symptoms or concenrs. please see specialist. please discuss the results of your blood tests with you doctor/clinic. you may need repeat test Prescriptions: Ondansetron ODT [Zofran ODT] 4 mg PO Q8 PRN #10 odt PRN Reason: Nausea/Vomiting Instructions: Acute Abdominal Pain (ED) - Clinical Impression Clinical Impression: Abdominal pain, Leukocytosis
[2016-12-11 19:40] LABS: BASO # 0.1 K/uL (0.0-0.2); BASO % 0.4 % (0.0-2.0); EOS % 0.1 % (0.0-4.0); LYMPH # 1.6 K/uL (1.0-4.3); MEAN PLATELET VOLUME 7.9 fL (7.2-11.7); NEUT # 11.1 K/uL (1.8-7.0)
[2016-12-11] MEDS ORDERED: Sodium Chloride 0.9% 1,000 ML ONE (19:45)
[2016-12-11 19:47] LABS: ALBUMIN 4.4 g/dL (3.5-5.0)
[2016-12-11 19:48] LABS: INR 1.1; PROTHROMBIN TIME 12.4 SECONDS (9.7-12.2)
[2016-12-11 19:50] LABS: GFR AFRICAN-AMERICAN > 60; GFR NON-AFRICAN AMERICAN > 60
[2016-12-11 19:51] LABS: ALB/GLOB RATIO 1.4 (1.0-2.1); ALT/SGPT 43 U/L (9-52); AST/SGOT 27 U/L (14-36); BILIRUBIN,DIRECT 0.3 mg/dL (0.0-0.4); BLOOD UREA NITROGEN 10 mg/dL (7-17); LIPASE 59 U/L (23-300)
[2016-12-11 19:52] LABS: SQUAMOUS EPITHIAL 23 /hpf (0-5); URINE BACTERIA RARE (<OCC); URINE BILIRUBIN NEGATIVE (NEGATIVE); URINE BLOOD NEGATIVE (NEGATIVE); URINE CLARITY Hazy (Clear); URINE COLOR Yellow (YELLOW); URINE GLUCOSE (UA) NORMAL (Normal); URINE LEUKOCYTE ESTERASE TRACE Leu/uL (Negative); URINE NITRATE NEGATIVE (NEGATIVE); URINE PROTEIN 1+ mg/dL (NEGATIVE)
[2016-12-11 19:58] LABS: LYMPH % 11.9 % (20.0-40.0); MEAN CELL VOLUME 88.7 fL (81.0-99.0); MEAN CORPUSCULAR HEMOGLOBIN 31.6 pg (27.0-31.0); MEAN CORPUSCULAR HGB CONC 35.6 g/dL (33.0-37.0); MONO # 0.8 K/uL (0.0-0.8); MONO % 5.7 % (0.0-10.0); NEUT % 81.9 % (50.0-75.0); RBC 4.44 Mil/uL (3.80-5.20); RED CELL DISTRIBUTION WIDTH 14.2 % (11.5-14.5); WHITE BLOOD COUNT 13.5 K/uL (4.8-10.8)
--- NOTE | 2016-12-11 21:07 | US ---
EXAM: US Abdomen Complete CLINICAL HISTORY: 21 years old, female; Pain; Abdominal pain; Flank; Right; Prior surgery; Surgery date: 1-6 months; Additional info: Ruq pain eval cbd TECHNIQUE: Real-time ultrasound of the abdomen (complete) with image documentation. COMPARISON: CT - ABD PELVIS IV CONTRAST ONLY 11/12/2016 10:40:54 PM FINDINGS: Liver: Enlarged, 19.0 cm. Fatty infiltration. No mass. No intrahepatic ductal dilatation. Gallbladder: Cholecystectomy. Common bile duct: No dilatation. No stones. Pancreas: Unremarkable as visualized. Kidneys: Normal echogenicity. No hydronephrosis. Spleen: No splenomegaly. Aorta: Unremarkable. No aneurysm. Inferior vena cava: Unremarkable. Free fluid: No significant free fluid. IMPRESSION: 1.No acute findings. 2.Non-acute findings are described above.
[2016-12-11] MEDS ORDERED: Morphine 4 MG/ML VIAL ONE (21:12)
[2016-12-11] MEDS ORDERED: Iodixanol 320 MG/ML 100 ML BOTTLE IV ONE (21:15)
[2016-12-11 22:19] VITALS: BP 128/84; PULSE 82; RESP 16; TEMP 98
--- NOTE | 2016-12-12 08:05 | CT ---
PROCEDURE: CT Abdomen and Pelvis without Oral or IV contrast. HISTORY: right sided pain COMPARISON: Abdominal ultrasound performed 12/11/16, CT abdomen and pelvis without IV contrast performed 11/15/16 TECHNIQUE: Contiguous axial images of the abdomen and pelvis. No oral or IV contrast administered. Coronal and Sagittal reformats generated and reviewed. Radiation dose: Total exam DLP = 756.77 mGy-cm. This CT exam was performed using one or more of the following dose reduction techniques: Automated exposure control, adjustment of the mA and/or kV according to patient size, and/or use of iterative reconstruction technique. FINDINGS: Mild motion artifact. There is limited evaluation of the solid organs without the administration of IV contrast. LOWER THORAX: No visible consolidation, pleural effusion, or pneumothorax. Small hiatal hernia/distal esophageal wall thickening. LIVER: Unremarkable unenhanced appearance. GALLBLADDER AND BILE DUCTS: Unremarkable unenhanced appearance. PANCREAS: Cholecystectomy. SPLEEN: Unremarkable unenhanced appearance. ADRENALS: Unremarkable unenhanced appearance. KIDNEYS AND URETERS: No hydronephrosis or obstructing renal calculus. Punctate calculus, left kidney. BLADDER: Under distended urinary bladder appears otherwise unremarkable. REPRODUCTIVE: Uterus is present. 2.5 cm hypodense lesion within the left adnexa, possibly ovarian cyst. APPENDIX: The presumed appendix appears within normal limits of caliber. No secondary signs of acute appendicitis. BOWEL: The stomach is nondistended. Lack of oral contrast limits evaluation for bowel pathology. The bowel loops appear within normal limits of caliber without evidence of intestinal obstruction. Segmental regions of mild mural thickening versus underdistention involving the left colon. No associated inflammatory changes appreciated. PERITONEUM: Trace pelvic free fluid. No definite free air. LYMPH NODES: No bulky lymphadenopathy identified. VASCULATURE: No aortic aneurysm. BONES: No acute osseous abnormality is detected. OTHER FINDINGS: None. IMPRESSION: Probable 2.5 cm left ovarian cyst. Suggest pelvic ultrasound for further evaluation if indicated. Mild colitis versus underdistention. Correlate clinically. Cholecystectomy. Additional incidental findings as above. Preliminary impression was provided by virtual radiologic.
== END 2016-12-11 22:39 | disposition home or self-care (01) ==
LOC: C.ER 18:58
DX: R10.11 Right upper quadrant pain (principal); D72.829 Elevated white blood cell count, unspecified
CPT/HCPCS: 74176; 76700; 80053; 81001; 82248; 82948; 83690; 84703; 85025; 85610; 85730; 96361; 96374; 96375; 99285; J2270; J2405; J7040

== ENCOUNTER 2016-12-14 07:30 | Emergency (ER) | payer MEDICAID, OTHER ==
[2016-12-14 07:30] VITALS: BMI 25.2
[2016-12-14 07:35] VITALS: O2SAT 100
--- NOTE | 2016-12-14 07:47 | C.PDOC ---
History Of Present Illness Pt is a 71 yr old female with a past medical hx of lung CA (just released from [facility] -- for rehab) who presents to the ED c/o right later rib pain ( next to right flank) that radiates to her right anterior chest for last 1.5 days. Pain is worse w/ deep inspiration. No cough. No fever. Tylenol helps the pain. Pain is an 8 or 9 on a 1-10 scale. The pain is constant in nature. No additional complaints at this time. PMD: Dr. Rocha Time Seen by Provider: 12/14/16 07:38 Chief Complaint (Nursing): Abdominal Pain Past Medical History Vital Signs: Last Vital Signs Temp 98.6 F 12/14/16 07:33 Pulse 94 H 12/14/16 07:33 Resp 20 12/14/16 07:33 BP 142/95 H 12/14/16 07:33 Pulse Ox 100 12/14/16 07:33 - Medical History PMH: Asthma, Diabetes (type 1), Chronic Kidney Disease (''KIDNEY INFECTION'') Denies: Atrial Fibrillation, Cardia Arrhythmia, CHF Surgical History: Cholecystectomy - [facility] Procedures FLUOROSCOPY OF SUPERIOR VENA CAVA, GUIDANCE (05/11/16) INFLUENZA VACCINATION (04/18/14) INJECT INSULIN (02/05/15) INJECT/INFUSE NEC (02/05/15) INSERTION OF INFUSION DEV INTO SUP VENA CAVA, PERC APPROACH (05/11/16) INTRODUCTION OF SERUM/TOX/VACCINE INTO MUSCLE, PERC APPROACH (04/11/16) RELEASE PERITONEUM, PERCUTANEOUS ENDOSCOPIC APPROACH (09/24/16) RESECTION OF GALLBLADDER, PERCUTANEOUS ENDOSCOPIC APPROACH (09/24/16) ROBOTIC ASSISTED PROCEDURE OF TRUNK, PERC ENDO APPROACH (09/24/16) ULTRASONOGRAPHY OF RIGHT UPPER EXTREMITY VEINS, GUIDANCE (05/11/16) Family History: States: Unknown Family Hx - Social History Hx Tobacco Use: No Hx Alcohol Use: No Hx Substance Use: No - Immunization History Hx Tetanus Toxoid Vaccination: Yes Hx Influenza Vaccination: No Hx Pneumococcal Vaccination: No ED Course And Treatment O2 Sat by Pulse Oximetry: 100
[2016-12-14] MEDS ORDERED: Sodium Chloride 0.9% 1,000 ML IV ONE (07:51)
[2016-12-14] MEDS ORDERED: Sodium Chloride 0.9% 1,000 ML ONE (07:58)
[2016-12-14 08:20] LABS: BASO % 0.2 % (0.0-2.0); EOS # 0.1 K/uL (0.0-0.7); EOS % 0.5 % (0.0-4.0); HEMOGLOBIN 13.1 g/dL (11.0-16.0); LYMPH # 1.9 K/uL (1.0-4.3); LYMPH % 17.9 % (20.0-40.0); MEAN CORPUSCULAR HGB CONC 35.6 g/dL (33.0-37.0); MEAN PLATELET VOLUME 7.6 fL (7.2-11.7); MONO # 0.6 K/uL (0.0-0.8); MONO % 5.8 % (0.0-10.0); NEUT % 75.6 % (50.0-75.0); RBC 4.08 Mil/uL (3.80-5.20); RED CELL DISTRIBUTION WIDTH 13.9 % (11.5-14.5); WHITE BLOOD COUNT 10.6 K/uL (4.8-10.8)
[2016-12-14 08:38] LABS: ALBUMIN 3.6 g/dL (3.5-5.0)
[2016-12-14 08:41] LABS: ALB/GLOB RATIO 1.2 (1.0-2.1); AST/SGOT 38 U/L (14-36); BLOOD UREA NITROGEN 8 mg/dL (7-17); GFR AFRICAN-AMERICAN > 60; GFR NON-AFRICAN AMERICAN > 60
[2016-12-14 08:42] LABS: ALT/SGPT 39 U/L (9-52); CALCIUM 8.1 mg/dl (8.6-10.4); LIPASE 68 U/L (23-300)
--- NOTE | 2016-12-14 08:49 | C.PDOC ---
History Of Present Illness Patient is a 21 y/o female, whose PMHx includes diabetes, s/p cholecystectomy, presents to the ED for evaluation of RUQ pain radiating to right flank for the last 3 days. Patient states that pain is now also radiating to left flank, with associated nausea and vomiting. Patient reports having recent laproscopic surgery done for ectopic in October 2016. Patient denies being currently. Otherwise, denies any diarrhea, urinary symptoms, vaginal bleeding, vaginal discharge, fever, or chills. Time Seen by Provider: 12/14/16 07:38 Chief Complaint (Nursing): Abdominal Pain History Per: Patient History/Exam Limitations: no limitations Onset/Duration Of Symptoms: Days (3) Current Symptoms Are (Timing): Still Present Location Of Pain/Discomfort: RUQ Radiation Of Pain To:: Back, Flank Quality Of Discomfort: "Pain" Associated Symptoms: Nausea, Vomiting. denies: Fever, Chills, Diarrhea, Loss Of Appetite, Chest Pain, Constipation, Urinary Symptoms Exacerbating Factors: None Alleviating Factors: None Recent travel outside of the [place]: No Additional History Per: Patient Abnormal Vaginal Bleeding: No Past Medical History Reviewed: Historical Data, Nursing Documentation, Vital Signs Vital Signs: Last Vital Signs Temp 98.6 F 12/14/16 07:33 Pulse 94 H 12/14/16 07:33 Resp 20 12/14/16 07:33 BP 142/95 H 12/14/16 07:33 Pulse Ox 100 12/14/16 10:31 - Medical History PMH: Asthma, Diabetes (type 1), Chronic Kidney Disease (''KIDNEY INFECTION'') Denies: Atrial Fibrillation, Cardia Arrhythmia, CHF Surgical History: Cholecystectomy - [facility] Procedures FLUOROSCOPY OF SUPERIOR VENA CAVA, GUIDANCE (05/11/16) INFLUENZA VACCINATION (04/18/14) INJECT INSULIN (02/05/15) INJECT/INFUSE NEC (02/05/15) INSERTION OF INFUSION DEV INTO SUP VENA CAVA, PERC APPROACH (05/11/16) INTRODUCTION OF SERUM/TOX/VACCINE INTO MUSCLE, PERC APPROACH (04/11/16) RELEASE PERITONEUM, PERCUTANEOUS ENDOSCOPIC APPROACH (09/24/16) RESECTION OF GALLBLADDER, PERCUTANEOUS ENDOSCOPIC APPROACH (09/24/16) ROBOTIC ASSISTED PROCEDURE OF TRUNK, PERC ENDO APPROACH (09/24/16) ULTRASONOGRAPHY OF RIGHT UPPER EXTREMITY VEINS, GUIDANCE (05/11/16) Family History: States: Unknown Family Hx - Social History Hx Tobacco Use: No Hx Alcohol Use: No Hx Substance Use: No - Immunization History Hx Tetanus Toxoid Vaccination: Yes Hx Influenza Vaccination: No Hx Pneumococcal Vaccination: No Review Of Systems Except As Marked, All Systems Reviewed And Found Negative. Constitutional: Negative for: Fever, Chills Gastrointestinal: Positive for: Nausea, Vomiting, Abdominal Pain (RUQ). Negative for: Diarrhea, Constipation, Hematemesis Genitourinary: Negative for: Dysuria, Frequency, Incontinence, Hematuria, Vaginal Discharge, Vaginal Bleeding, Pelvic Pain Musculoskeletal: Positive for: Back Pain (BL flank) Physical Exam - Physical Exam Appears: Non-toxic, No Acute Distress Skin: Normal Color, Warm, Dry Head: Atraumatic, Normacephalic Eye(s): bilateral: Normal Inspection Nose: Normal Oral Mucosa: Dry Lips: Normal Appearing Neck: Normal ROM, Supple Chest: Symmetrical Cardiovascular: Rhythm Regular, No Murmur Respiratory: Normal Breath Sounds, No Rales, No Rhonchi, No Wheezing Gastrointestinal/Abdominal: Normal Exam, Soft, No Tenderness, No Distention, No Guarding, No Rebound Back: Normal Inspection, No CVA Tenderness, No Vertebral Tenderness, No Paraspinal Tenderness Extremity: Normal ROM, No Deformity Extremity: Bilateral: Atraumatic Neurological/Psych: Oriented x3, Normal Speech, Normal Cognition ED Course And Treatment - Laboratory Results Result Diagrams: 12/14/16 08:16 12/14/16 08:16 O2 Sat by Pulse Oximetry: 100 (on RA) Pulse Ox Interpretation: Normal - CT Scan/US US TV Other Rad Studies (CT/US): Read By Radiologist CT/US Interpretation: FINDINGS: UTERUS: Measures 8.3 x 3.7 x 5 point cm. Anteverted. ENDOMETRIUM: Measures 9 mm in diameter. CERVIX: Cervix length measures approximately 3.3 cm. RIGHT OVARY: Measures 3.7 x 6.2 x 3.9 cm. Blood flow is demonstrated. LEFT OVARY: Measures 4.1 x 2.6 x 3.1 cm. Blood flow is demonstrated. 2.5 x 1.5 x 2.5 cm anechoic avascular lesion compatible with a cyst. FREE FLUID: Small pelvic free fluid. OTHER FINDINGS: None. IMPRESSION: 2.5 cm left ovarian cyst. Small pelvic free fluid. Medical Decision Making Medical Decision Makin yo F c/o b/l flank pain associated with N/V. Of note, pt was recently seen in this ER 3 days ago when the symptoms started. Prior record reviewed. On 12/01/16 patient had an abdominal ultrasound done which was negative. Patient had elevated WBC of 13.5. On 11/15/16 patient had normal WBC, and CT A/P scan done, showed there is some mild persistent fluid identified in the cul-de-sac and right pelvis, minimally decreased from the prior study. It was mentioned on that visit that the patient had as recent lap surgery for an ectopic . Considering patient's history, and current complaints, pelvis ultrasound will be ordered to rule out tubo-ovarian abscess, to consider UTI, ovarian cyst. Blood work, urinalysis, transvaginal ultrasound ordered and reviewed. Patient was treated with Pepcid, Reglan, Toradol, and IV fluids. On reassessment, patient is resting comfortably, no acute distress. Abdomen remains soft and non-tender, with no guarding and no rebound. Uhcg (-) FS 172 Labs: WBC 10.6, K 3.4, UA (-) US TV : shows 2.5 cm left ovarian cyst and small pelvic free fluid. Lab and US results d/w the pt in great detail. Given Kcl po. Patient states that she feels comfortable going home. Was instructed to f/u with her pmd or hogshead wrecker in 2 days without fail. Advised to return to the ER at any time for any new or worsening symptoms. Disposition - Disposition Disposition: HOME/ ROUTINE Disposition Time: 10:00 Condition: STABLE Additional Instructions: Follow up with your pmd in 2 days without fail for re-evaluation. Take medication as prescribed. Return to the ER at any time for any new or worsening symptoms. Prescriptions: Meloxicam [Mobic] 15 mg PO DAILY PRN #20 tab PRN Reason: Pain, Moderate (4-7) Instructions: Ovarian Cyst (ED), Flank Pain (ED) Forms: Work Excuse Print Language: FRISIAN - Clinical Impression Clinical Impression: Flank pain, Nausea & vomiting, Ovarian cyst - PA / ANIMAL RIDE MANAGER / Resident Statement MD/DO has reviewed & agrees with the documentation as recorded. - Scribe Statement The provider has reviewed the documentation as recorded by the Scribe García Sotomayor All medical record entries made by the Scribe were at my direction and personally dictated by me. I have reviewed the chart and agree that the record accurately reflects my personal performance of the history, physical exam, medical decision making, and the department course for this patient. I have also personally directed, reviewed, and agree with the discharge instructions and disposition.
[2016-12-14] MEDS ORDERED: Potassium Chloride 20 mEq/15 ml LIQ UD PO STA (09:18)
[2016-12-14] MEDS ORDERED: Potassium Chloride 20 mEq ER Tab PO ONE (09:21)
[2016-12-14 09:54] LABS: SQUAMOUS EPITHIAL 22 /hpf (0-5); URINE BILIRUBIN NEGATIVE (NEGATIVE); URINE BLOOD NEGATIVE (NEGATIVE); URINE CLARITY Hazy (Clear); URINE COLOR Amber (YELLOW); URINE GLUCOSE (UA) NORMAL (Normal); URINE LEUKOCYTE ESTERASE TRACE Leu/uL (Negative); URINE NITRATE NEGATIVE (NEGATIVE); URINE PROTEIN 2+ mg/dL (NEGATIVE); URINE UROBILINOGEN NORMAL mg/dL (0.2-1.0)
--- NOTE | 2016-12-14 10:18 | US ---
HISTORY: h/o recent lap surgery for ectopic, r/o abscess COMPARISON: Transvaginal pelvic ultrasound performed 11/08/16 TECHNIQUE: Transvaginal pelvic ultrasound FINDINGS: UTERUS: Measures 8.3 x 3.7 x 5 point cm. Anteverted. ENDOMETRIUM: Measures 9 mm in diameter. CERVIX: Cervix length measures approximately 3.3 cm. RIGHT OVARY: Measures 3.7 x 6.2 x 3.9 cm. Blood flow is demonstrated. LEFT OVARY: Measures 4.1 x 2.6 x 3.1 cm. Blood flow is demonstrated. 2.5 x 1.5 x 2.5 cm anechoic avascular lesion compatible with a cyst. FREE FLUID: Small pelvic free fluid. OTHER FINDINGS: None. IMPRESSION: 2.5 cm left ovarian cyst. Small pelvic free fluid.
[2016-12-14 10:44] VITALS: BP 138/86; PULSE 86; RESP 18; TEMP 98.5
== END 2016-12-14 10:44 | disposition home or self-care (01) ==
LOC: C.ER 07:30
DX: N83.202 Unspecified ovarian cyst, left side (principal); R10.11 Right upper quadrant pain; R11.2 Nausea with vomiting, unspecified; E87.6 Hypokalemia
CPT/HCPCS: 76830; 80053; 81001; 83690; 85025; 87086; 96361; 96374; 96375; 99285; J1885; J2765; J7040

== ENCOUNTER 2017-01-24 14:45 | Emergency (ER) | payer MEDICAID ==
[2017-01-24 14:45] VITALS: BMI 25.2
[2017-01-24 14:52] VITALS: RESP 18
--- NOTE | 2017-01-24 15:17 | C.PDOC ---
History Of Present Illness 21 year old female presents to the ED with complaints of RUQ pain for three days with associated nausea and vomiting. Patient is status post cholecystectomy and ectopic this year. Patient denies possibility of , fever, diarrhea, dysuria/hematuria, vaginal bleeding/discharge. Time Seen by Provider: 01/24/17 15:01 Chief Complaint (Nursing): Abdominal Pain History Per: Patient History/Exam Limitations: no limitations Current Symptoms Are (Timing): Still Present Severity: Moderate Location Of Pain/Discomfort: RUQ Radiation Of Pain To:: None Quality Of Discomfort: "Pain" Associated Symptoms: Nausea, Vomiting. denies: Fever, Chills, Diarrhea Abnormal Vaginal Bleeding: No Past Medical History Reviewed: Historical Data, Nursing Documentation, Vital Signs Vital Signs: Last Vital Signs Temp 98.7 F 01/24/17 18:26 Pulse 100 H 01/24/17 18:26 Resp 18 01/24/17 18:26 BP 136/84 01/24/17 18:26 Pulse Ox 99 01/24/17 18:49 - Medical History PMH: Asthma, Diabetes (type 1), Chronic Kidney Disease (''KIDNEY INFECTION'') Surgical History: Cholecystectomy - [facility] Procedures FLUOROSCOPY OF SUPERIOR VENA CAVA, GUIDANCE (05/11/16) INFLUENZA VACCINATION (04/18/14) INJECT INSULIN (02/05/15) INJECT/INFUSE NEC (02/05/15) INSERTION OF INFUSION DEV INTO SUP VENA CAVA, PERC APPROACH (05/11/16) INTRODUCTION OF SERUM/TOX/VACCINE INTO MUSCLE, PERC APPROACH (04/11/16) RELEASE PERITONEUM, PERCUTANEOUS ENDOSCOPIC APPROACH (09/24/16) RESECTION OF GALLBLADDER, PERCUTANEOUS ENDOSCOPIC APPROACH (09/24/16) ROBOTIC ASSISTED PROCEDURE OF TRUNK, PERC ENDO APPROACH (09/24/16) ULTRASONOGRAPHY OF RIGHT UPPER EXTREMITY VEINS, GUIDANCE (05/11/16) Family History: States: No Known Family Hx - Social History Hx Tobacco Use: No Hx Alcohol Use: No Hx Substance Use: No - Immunization History Hx Tetanus Toxoid Vaccination: No Hx Influenza Vaccination: No Hx Pneumococcal Vaccination: No Review Of Systems Except As Marked, All Systems Reviewed And Found Negative. Constitutional: Negative for: Fever, Chills Cardiovascular: Negative for: Chest Pain, Palpitations Respiratory: Negative for: Cough, Shortness of Breath Gastrointestinal: Positive for: Nausea, Vomiting, Abdominal Pain. Negative for : Diarrhea Genitourinary: Negative for: Dysuria, Hematuria, Vaginal Discharge, Vaginal Bleeding Physical Exam - Physical Exam Appears: Well, Non-toxic, In Acute Distress ( in mild pain ) Skin: Warm, Dry Eye(s): bilateral: Normal Inspection Oral Mucosa: Moist Neck: Supple Chest: Symmetrical, No Deformity Cardiovascular: Rhythm Regular Respiratory: Normal Breath Sounds, No Rales, No Rhonchi, No Wheezing Gastrointestinal/Abdominal: Soft, Tenderness (RUQ and epigastric tenderness to palpation), No Distention, No Guarding, No Rebound Back: No CVA Tenderness Neurological/Psych: Oriented x3 ED Course And Treatment - Laboratory Results Result Diagrams: 01/24/17 17:42 01/24/17 15:25 O2 Sat by Pulse Oximetry: 99 (room air ) Pulse Ox Interpretation: Normal - CT Scan/US Abdomen Limited US Other Rad Studies (CT/US): Read By Radiologist, Radiology Report Reviewed Progress Note: Blood work, UA and abdominal limited US ordered and reviewed. Patient was given IV Zofran, IV Toradol, and IV NS bolus. Patient has had multiple CT scans of abdomen this year, and multiple prior visits for abdominal pain - will not redo CT scan at this time. Blood work shows leukocytosis, IV fluid bolus given and CBC repeated - leukocytosis improved. 18:50- On reassessment, patient is resting comfortably and states she feels better, would like to be discharged home. On exam, abdomen is soft and nontender. UA shows UTI - patient given Rx for antibiotics, and was instructed to follow up with her PMD in 1-2 days. She understands she should return to ED if symptoms worsen. Reevaluation Time: 17:30 Reassessment Condition: Unchanged (Patient c/o pain and nausea - IV reglan, IV pepcid and IV tylenol given.) Disposition Counseled Patient/Family Regarding: Studies Performed, Diagnosis, Need For Followup, Rx Given - Disposition Referrals: Wesley Martinez MD [Staff Provider] - Disposition: HOME/ ROUTINE Disposition Time: 18:50 Condition: STABLE Additional Instructions: FOLLOW UP WITH YOUR DOCTOR IN 1-2 DAYS USE MEDICATIONS DIRECTED RETURN TO ER IF SYMPTOMS WORSEN Instructions: Urinary Tract Infection in Women (ED), Abdominal Pain (ED) Forms: [facility] [employer] (Estonian), School Excuse, Work Excuse Print Language: KHMER - Clinical Impression Clinical Impression: Abdominal pain, Urinary tract infection - Scribe Statement The provider has reviewed the documentation as recorded by the Scribe Margareth Chambers All medical record entries made by the Waleskaibe were at my direction and personally dictated by me. I have reviewed the chart and agree that the record accurately reflects my personal performance of the history, physical exam, medical decision making, and the department course for this patient. I have also personally directed, reviewed, and agree with the discharge instructions and disposition.
[2017-01-24] MEDS ORDERED: Sodium Chloride 0.9% 1,000 ML IV ONE ×2 (15:18→16:21)
[2017-01-24 15:29] LABS: BASO # 0.1 K/uL (0.0-0.2); BASO % 0.3 % (0.0-2.0); EOS % 0.1 % (0.0-4.0); HEMATOCRIT 42.9 % (34.0-47.0); LYMPH # 0.9 K/uL (1.0-4.3); LYMPH % 4.5 % (20.0-40.0); MEAN CORPUSCULAR HEMOGLOBIN 32.6 pg (27.0-31.0); MEAN CORPUSCULAR HGB CONC 35.1 g/dL (33.0-37.0); MEAN PLATELET VOLUME 8.3 fL (7.2-11.7); MONO # 0.7 K/uL (0.0-0.8); MONO % 3.4 % (0.0-10.0); PLATELET COUNT 283 K/uL (130-400); RED CELL DISTRIBUTION WIDTH 13.3 % (11.5-14.5)
[2017-01-24 15:34] LABS: RBC URINE 4 /hpf (0-3); URINE BACTERIA OCC (<OCC); URINE BILIRUBIN NEGATIVE (NEGATIVE); URINE BLOOD NEGATIVE (NEGATIVE); URINE COLOR Yellow (YELLOW); URINE GLUCOSE (UA) 3+ mg/dL (Normal); URINE KETONE TRACE mg/dL (NEGATIVE); URINE LEUKOCYTE ESTERASE 3+ Leu/uL (Negative); URINE PROTEIN NEGATIVE (NEGATIVE); URINE UROBILINOGEN NORMAL mg/dL (0.2-1.0); WBC URINE 48 /hpf (0-5)
[2017-01-24] MEDS ORDERED: Sodium Chloride 0.9% 1,000 ML ONE ×2 (15:37→16:37)
[2017-01-24 15:48] LABS: CHLORIDE 99 mmol/L (98-107); SODIUM 141 mmol/L (132-148)
[2017-01-24 15:50] LABS: ALB/GLOB RATIO 1.2 (1.0-2.1); ALKALINE PHOSPHATASE 60 U/L (38-126); AST/SGOT 40 U/L (14-36); BILIRUBIN,TOTAL 1.2 mg/dL (0.2-1.3); CARBON DIOXIDE 23 mmol/L (22-30); GFR AFRICAN-AMERICAN > 60; TOTAL PROTEIN 8.1 g/dL (6.3-8.3)
[2017-01-24 15:51] LABS: ALT/SGPT 31 U/L (9-52); BLOOD UREA NITROGEN 8 mg/dL (7-17); CALCIUM 9.2 mg/dl (8.6-10.4); GLUCOSE,RANDOM 201 mg/dL (65-105)
[2017-01-24 15:58] LABS: NEUTROPHIL 92 % (50-75); TOTAL CELLS COUNTED 100
--- NOTE | 2017-01-24 17:21 | US ---
HISTORY: RUQ PAIN, R/O CBD STONE COMPARISON: CT abdomen and pelvis without oral or IV contrast performed 12/11/16, abdominal ultrasound performed 12/11/16 TECHNIQUE: Sonographic evaluation of the right upper quadrant of the abdomen. FINDINGS: LIVER: Measures 20.4 cm in length. Echogenic liver may be seen in setting of hepatic parenchymal disease or fatty infiltration. No focal hepatic mass identified. The main portal vein appears patent with normal directional flow. No intrahepatic bile duct dilatation. GALLBLADDER: Cholecystectomy. COMMON BILE DUCT: Measures 4 mm. PANCREAS: Not well-visualized. RIGHT KIDNEY: Measures 12.4 x 4.2 x 4.6 cm. No obstructing calculus or hydronephrosis identified. AORTA: Limited visualization appears grossly unremarkable. IVC: Limited visualization appears grossly unremarkable. OTHER FINDINGS: None . IMPRESSION: Hepatomegaly. Echogenic liver may be seen in setting of hepatic parenchymal disease or fatty infiltration. Cholecystectomy.
[2017-01-24 17:59] LABS: BASO % 0.2 % (0.0-2.0); EOS % 0.1 % (0.0-4.0); HEMATOCRIT 37.1 % (34.0-47.0); LYMPH # 0.9 K/uL (1.0-4.3); MEAN CELL VOLUME 92.4 fL (81.0-99.0); MEAN CORPUSCULAR HEMOGLOBIN 32.7 pg (27.0-31.0); MEAN CORPUSCULAR HGB CONC 35.4 g/dL (33.0-37.0); MEAN PLATELET VOLUME 8.1 fL (7.2-11.7); MONO # 0.8 K/uL (0.0-0.8); MONO % 4.6 % (0.0-10.0); NRBC % 0.1 % (0.0-2.0); RED CELL DISTRIBUTION WIDTH 13.4 % (11.5-14.5); WHITE BLOOD COUNT 17.4 K/uL (4.8-10.8)
[2017-01-24] MEDS ORDERED: Acetaminophen IV 1,000 MG in Premixed IV 1 EA IV STA (18:13)
[2017-01-24 18:27] VITALS: BP 136/84; PULSE 100; TEMP 98.7
[2017-01-24 18:49] VITALS: O2SAT 99
== END 2017-01-24 19:10 | disposition home or self-care (01) ==
LOC: C.ER 14:45
DX: N39.0 Urinary tract infection, site not specified (principal); R10.9 Unspecified abdominal pain; E10.22 Type 1 diabetes mellitus with diabetic chronic kidney disease; N18.9 Chronic kidney disease, unspecified
CPT/HCPCS: 76705; 80053; 81001; 82948; 83690; 84703; 85025; 87086; 87181; 96361; 96374; 96375; 99285; J0131; J1885; J2405; J2765; J7040

== ENCOUNTER 2017-02-14 07:38 | Emergency (ER) | payer MEDICAID, OTHER ==
[2017-02-14 07:38] VITALS: BMI 27.8
[2017-02-14 07:51] VITALS: RESP 18; TEMP 98.1
[2017-02-14] MEDS ORDERED: Sodium Chloride 0.9% 1,000 ML IV ONE ×2 (08:07→08:08)
[2017-02-14] MEDS ORDERED: Sodium Chloride 0.9% 2,000 ML ONE (08:18)
[2017-02-14 08:26] LABS: BASO # 0.1 K/uL (0.0-0.2); BASO % 0.5 % (0.0-2.0); EOS % 0.3 % (0.0-4.0); HEMATOCRIT 41.5 % (34.0-47.0); LYMPH # 2.1 K/uL (1.0-4.3); LYMPH % 16.3 % (20.0-40.0); MEAN CELL VOLUME 90.9 fL (81.0-99.0); MEAN CORPUSCULAR HEMOGLOBIN 32.2 pg (27.0-31.0); MEAN CORPUSCULAR HGB CONC 35.4 g/dL (33.0-37.0); MEAN PLATELET VOLUME 7.9 fL (7.2-11.7); MONO # 0.8 K/uL (0.0-0.8); MONO % 5.8 % (0.0-10.0); NRBC % 0.1 % (0.0-2.0); RED CELL DISTRIBUTION WIDTH 13.5 % (11.5-14.5)
--- NOTE | 2017-02-14 08:26 | C.PDOC ---
History Of Present Illness 21 y/o female with Hx of DM presents to ED with complaints of vomiting and unable to tolerate PO for 2 days. Patient was seen t ED in December and admitted for kidney infection. Patient reports she hasn't checked her blood sugar because "she is sick". Patient denies fever, chills, diarrhea, back pain or any other complaints at this time. Time Seen by Provider: 02/14/17 07:45 Chief Complaint (Nursing): Abdominal Pain History Per: Patient History/Exam Limitations: no limitations Onset/Duration Of Symptoms: Days Current Symptoms Are (Timing): Still Present Past Medical History Reviewed: Historical Data, Nursing Documentation, Vital Signs Vital Signs: Last Vital Signs Temp 98.1 F 02/14/17 07:48 Pulse 103 H 02/14/17 12:02 Resp 18 02/14/17 12:02 BP 138/89 02/14/17 12:02 Pulse Ox 100 02/14/17 12:19 - Medical History PMH: Asthma, Diabetes (type 1), Gall Bladder Disease (CHOLECYSTECTOMY), Chronic Kidney Disease (''KIDNEY INFECTION'') Surgical History: Cholecystectomy - [facility] Procedures FLUOROSCOPY OF SUPERIOR VENA CAVA, GUIDANCE (05/11/16) INFLUENZA VACCINATION (04/18/14) INJECT INSULIN (02/05/15) INJECT/INFUSE NEC (02/05/15) INSERTION OF INFUSION DEV INTO SUP VENA CAVA, PERC APPROACH (05/11/16) INTRODUCTION OF SERUM/TOX/VACCINE INTO MUSCLE, PERC APPROACH (04/11/16) RELEASE PERITONEUM, PERCUTANEOUS ENDOSCOPIC APPROACH (09/24/16) RESECTION OF GALLBLADDER, PERCUTANEOUS ENDOSCOPIC APPROACH (09/24/16) ROBOTIC ASSISTED PROCEDURE OF TRUNK, PERC ENDO APPROACH (09/24/16) ULTRASONOGRAPHY OF RIGHT UPPER EXTREMITY VEINS, GUIDANCE (05/11/16) Family History: States: No Known Family Hx - Social History Hx Tobacco Use: No Hx Alcohol Use: Yes Hx Substance Use: No - Immunization History Hx Tetanus Toxoid Vaccination: No Hx Influenza Vaccination: No Hx Pneumococcal Vaccination: No Review Of Systems Except As Marked, All Systems Reviewed And Found Negative. Constitutional: Negative for: Fever, Chills Gastrointestinal: Positive for: Nausea, Vomiting. Negative for: Abdominal Pain , Diarrhea Musculoskeletal: Negative for: Back Pain Skin: Negative for: Rash Physical Exam - Physical Exam Appears: Non-toxic, No Acute Distress Skin: Normal Color, Warm, Dry, No Rash Head: Atraumatic, Normacephalic Oral Mucosa: Moist Neck: Normal ROM, Supple Chest: Symmetrical Cardiovascular: Rhythm Regular, No Murmur, Other (Tachycardic) Respiratory: Normal Breath Sounds, No Rales, No Rhonchi, No Wheezing Gastrointestinal/Abdominal: Soft, Tenderness (Mild epigastric), No Guarding, No Rebound Back: No CVA Tenderness Neurological/Psych: Oriented x3 ED Course And Treatment - Laboratory Results Result Diagrams: 02/14/17 08:17 02/14/17 08:17 Lab Interpretation: No Acute Changes Urine POC: Negative O2 Sat by Pulse Oximetry: 100 (RA) Pulse Ox Interpretation: Normal Progress Note: Patient treated with 2 liters IVF NSS and zofran 4 mg IV. Treated with rocephin 1 GM IV. On re-evaluation abdomen soft, tolerating PO Reassessment Condition: Improved Medical Decision Making Medical Decision Making: Plan: * Labs * IV fluids * * Patient was evaluated and admitted to [facility] and discharged 12/29 for pyelonephritis * * On re-evaluation feeing better instructed to follow up with PMD tomorrow or return to ED Disposition Counseled Patient/Family Regarding: Studies Performed, Diagnosis, Need For Followup, Rx Given - Disposition Referrals: Wesley Martinez MD [Staff Provider] - Disposition: HOME/ ROUTINE Disposition Time: 12:20 Condition: STABLE Additional Instructions: Follow up with your PMF Take medication as directed Return to ED if any increase symptoms Prescriptions: Cefdinir [Omnicef] 300 mg PO BID #14 cap Naproxen [Naprosyn] 1 tab PO BID PRN #25 tab PRN Reason: Pain Ondansetron ODT [Zofran ODT] 1 odt PO BID PRN #6 odt PRN Reason: Nausea/Vomiting Instructions: Urinary Tract Infection in Women (ED), Acute Pyelonephritis (ED) Forms: [facility] (Occitan), Work Excuse - POA Present On Arrival: None - Clinical Impression Clinical Impression: Type 1 diabetes, Nausea, Abdominal pain, Nausea & vomiting, Urinary tract infection, Pyelonephritis - PA / CUSTOMER AGENT / Resident Statement MD/DO has reviewed & agrees with the documentation as recorded. - Scribe Statement The provider has reviewed the documentation as recorded by the Scribe Maricsa Leblanc All medical record entries made by the Scribe were at my direction and personally dictated by me. I have reviewed the chart and agree that the record accurately reflects my personal performance of the history, physical exam, medical decision making, and the department course for this patient. I have also personally directed, reviewed, and agree with the discharge instructions and disposition.
[2017-02-14 08:34] LABS: CHLORIDE 94 mmol/L (98-107); POTASSIUM 4.3 mmol/L (3.6-5.2); SODIUM 136 mmol/L (132-148)
[2017-02-14 08:36] LABS: GFR AFRICAN-AMERICAN > 60
[2017-02-14 08:37] LABS: ALB/GLOB RATIO 1.3 (1.0-2.1); ALKALINE PHOSPHATASE 53 U/L (38-126); ALT/SGPT 34 U/L (9-52); AST/SGOT 39 U/L (14-36); BILIRUBIN,TOTAL 1.4 mg/dL (0.2-1.3); BLOOD UREA NITROGEN 12 mg/dL (7-17); CALCIUM 9.3 mg/dl (8.6-10.4); CARBON DIOXIDE 28 mmol/L (22-30); GLUCOSE,RANDOM 277 mg/dL (65-105); TOTAL PROTEIN 7.9 g/dL (6.3-8.3)
[2017-02-14 08:44] LABS: RBC URINE 16 /hpf (0-3); URINE BACTERIA MANY (<OCC); URINE BILIRUBIN NEGATIVE (NEGATIVE); URINE BLOOD NEGATIVE (NEGATIVE); URINE COLOR Yellow (YELLOW); URINE GLUCOSE (UA) 3+ mg/dL (Normal); URINE KETONE NEGATIVE (NEGATIVE); URINE LEUKOCYTE ESTERASE 3+ Leu/uL (Negative); URINE PROTEIN 1+ mg/dL (NEGATIVE); URINE UROBILINOGEN NORMAL mg/dL (0.2-1.0); WBC CLUMPS FEW /hpf; WBC URINE 198 /hpf (0-5)
[2017-02-14] MEDS ORDERED: cefTRIAXone IV 1 gm in Dextros 50 ML IV ONE (08:53)
[2017-02-14] MEDS ORDERED: cefTRIAXone IV 1 gm in Dextros 50 ML IVPB ONE (08:59)
[2017-02-14] MEDS ORDERED: (Novolin R) Insulin Human Regular 100 units/ml vial SC ONE (11:33)
[2017-02-14] MEDS ORDERED: (Novolin R) Insulin Human Regular 100 units/ml vial ONE (11:39)
[2017-02-14 12:02] VITALS: BP 138/89; PULSE 103; O2SAT 100
== END 2017-02-14 12:55 | disposition home or self-care (01) ==
LOC: C.ER 07:38
DX: E10.22 Type 1 diabetes mellitus with diabetic chronic kidney disease (principal); N18.9 Chronic kidney disease, unspecified; N10 Acute pyelonephritis; N39.0 Urinary tract infection, site not specified; R11.2 Nausea with vomiting, unspecified
CPT/HCPCS: 80053; 81001; 82009; 82948; 83690; 84703; 85025; 96361; 96372; 96374; 96375; 96376; 99285; J0696; J1885; J2405; J7040

== ENCOUNTER 2017-02-19 12:08 | Inpatient (IN) | payer MEDICAID, OTHER ==
[2017-02-19 12:08] VITALS: BMI 27.8
--- NOTE | 2017-02-19 13:05 | C.PDOC ---
History Of Present Illness 21 yr old female w/PMHx of NIDDM, recent hx of UTI, pyelonephritis (01/26/17), presents to the ER requesting alcohol detox. Patient reports she has been drinking for approximately 3 years, " now want to stop drinking". Patient admits , was seen last here [facility] ED on 02/14/17 due to abdominal pain, UTI sx and received Rx: Omnicef, admits complaint with abx. Pt request repeat UA " still feel mild pain with urination. Otherwise, pt denies SI, HI, hallucinations, denies fever, chills, sore throat, neck pain, CP, SOB, dyspnea, diaphoresis, nausea, vomiting, abdominal pain, hematuria, back pain, vaginal irritation or discharges. Ambulate to ED for evaluation, appears comfortable, not in any apparent distress, last drink was yesterday. Mom at bedside. FYI: Records from previous visits review, pt was admitted on 01/26/17 with Dx: Hyperglycemia, pyelo and 02/14/17-seen due to abd. pain, UTI sx, R: Omnicef given. Time Seen by Provider: 02/19/17 12:55 Chief Complaint (Nursing): Substance Abuse History Per: Patient History/Exam Limitations: no limitations Onset/Duration Of Symptoms: Days Past Medical History Reviewed: Historical Data, Nursing Documentation, Vital Signs Vital Signs: Last Vital Signs Temp 98.2 F 02/19/17 16:13 Pulse 108 H 02/19/17 16:13 Resp 18 02/19/17 12:13 BP 144/97 H 02/19/17 16:13 Pulse Ox 100 02/19/17 16:13 - Medical History PMH: Asthma, Diabetes (type 1), Gall Bladder Disease (CHOLECYSTECTOMY), Chronic Kidney Disease (''KIDNEY INFECTION'') Surgical History: Cholecystectomy - [facility] Procedures FLUOROSCOPY OF SUPERIOR VENA CAVA, GUIDANCE (05/11/16) INFLUENZA VACCINATION (04/18/14) INJECT INSULIN (02/05/15) INJECT/INFUSE NEC (02/05/15) INSERTION OF INFUSION DEV INTO SUP VENA CAVA, PERC APPROACH (05/11/16) INTRODUCTION OF SERUM/TOX/VACCINE INTO MUSCLE, PERC APPROACH (04/11/16) RELEASE PERITONEUM, PERCUTANEOUS ENDOSCOPIC APPROACH (09/24/16) RESECTION OF GALLBLADDER, PERCUTANEOUS ENDOSCOPIC APPROACH (09/24/16) ROBOTIC ASSISTED PROCEDURE OF TRUNK, PERC ENDO APPROACH (09/24/16) ULTRASONOGRAPHY OF RIGHT UPPER EXTREMITY VEINS, GUIDANCE (05/11/16) Family History: States: No Known Family Hx - Social History Hx Tobacco Use: No Hx Alcohol Use: Yes Hx Substance Use: No - Immunization History Hx Tetanus Toxoid Vaccination: No Hx Influenza Vaccination: No Hx Pneumococcal Vaccination: No Review Of Systems Except As Marked, All Systems Reviewed And Found Negative. Constitutional: Negative for: Fever, Chills Gastrointestinal: Negative for: Nausea, Vomiting, Abdominal Pain Genitourinary: Positive for: Dysuria. Negative for: Hematuria Musculoskeletal: Negative for: Back Pain Neurological: Negative for: Weakness, Numbness Psych: Negative for: Suicidal ideation Physical Exam - Physical Exam Appears: Well, Non-toxic, No Acute Distress Skin: Warm, Dry, No Rash Head: Normacephalic Eye(s): bilateral: PERRL Nose: No Flaring, No Discharge Oral Mucosa: Moist Throat: No Erythema, No Exudate Neck: Supple Chest: Symmetrical, No Tenderness Cardiovascular: Rhythm Regular, No Murmur, No JVD Respiratory: No Decreased Breath Sounds, No Accessory Muscle Use, No Rales, No Rhonchi, No Stridor, No Wheezing Gastrointestinal/Abdominal: Soft, No Tenderness, No Guarding, No Rebound Back: No CVA Tenderness Extremity: Normal ROM, No Pedal Edema, No Deformity, No Swelling Neurological/Psych: Oriented x3, Normal Speech, Normal Motor, Normal Sensation, Normal Reflexes ED Course And Treatment - Laboratory Results Result Diagrams: 02/19/17 13:39 02/19/17 13:39 Lab Interpretation: Abnormal O2 Sat by Pulse Oximetry: 99 (RA) Pulse Ox Interpretation: Normal Progress Note: AT 14:10, blood work review: hyperglycemia noted, electrolytes normal, ketones negative, AG= 15. UA (+) WBC, RBC although improved c/t previous study on 02/14/17. UCx performed on 01/26/17 review (+)E.Coli sensitive to penicillin given on 02/14/17. Pt was hydrated with IVF total 2L, Insulin given, repeat BSFS 165. Case discussed with hydroponics worker Pattie, who presented case to and admission to detox accepted. Medical consult order during the admission. Medical Decision Making Medical Decision Making: PLAN: * Alcohol Serum * Drug Screen * CBC * CMP * HCG * Urinalysis Disposition - Disposition Disposition Time: 16:54 Condition: STABLE Forms: [employer] (Guamanian) - Clinical Impression Clinical Impression: Uncontrolled diabetes mellitus, Alcohol abuse, Depression - PA / DRY CLEANER APPRENTICE / Resident Statement MD/DO has reviewed & agrees with the documentation as recorded. - Scribe Statement The provider has reviewed the documentation as recorded by the Scribe Cynthia Lenz All medical record entries made by the Scribe were at my direction and personally dictated by me. I have reviewed the chart and agree that the record accurately reflects my personal performance of the history, physical exam, medical decision making, and the department course for this patient. I have also personally directed, reviewed, and agree with the discharge instructions and disposition.
[2017-02-19 13:33] LABS: RBC URINE 7 /hpf (0-3); URINE BACTERIA RARE (<OCC); URINE BILIRUBIN NEGATIVE (NEGATIVE); URINE BLOOD NEGATIVE (NEGATIVE); URINE COLOR Yellow (YELLOW); URINE GLUCOSE (UA) 3+ mg/dL (Normal); URINE KETONE NEGATIVE (NEGATIVE); URINE LEUKOCYTE ESTERASE 2+ Leu/uL (Negative); URINE PROTEIN NEGATIVE (NEGATIVE); URINE UROBILINOGEN NORMAL mg/dL (0.2-1.0); WBC URINE 27 /hpf (0-5)
[2017-02-19 13:42] LABS: BASO % 0.5 % (0.0-2.0); EOS % 0.5 % (0.0-4.0); HEMATOCRIT 39.5 % (34.0-47.0); LYMPH # 1.2 K/uL (1.0-4.3); LYMPH % 16.1 % (20.0-40.0); MEAN CELL VOLUME 91.4 fL (81.0-99.0); MEAN PLATELET VOLUME 7.9 fL (7.2-11.7); MONO # 0.5 K/uL (0.0-0.8); MONO % 6.9 % (0.0-10.0); RED CELL DISTRIBUTION WIDTH 13.6 % (11.5-14.5); WHITE BLOOD COUNT 7.2 K/uL (4.8-10.8)
[2017-02-19 13:55] LABS: CHLORIDE 93 mmol/L (98-107); POTASSIUM 3.6 mmol/L (3.6-5.2); SODIUM 135 mmol/L (132-148)
[2017-02-19 13:57] LABS: ALB/GLOB RATIO 1.2 (1.0-2.1); ALKALINE PHOSPHATASE 59 U/L (38-126); ALT/SGPT 34 U/L (9-52); AST/SGOT 23 U/L (14-36); BILIRUBIN,TOTAL 0.8 mg/dL (0.2-1.3); BLOOD UREA NITROGEN 7 mg/dL (7-17); CARBON DIOXIDE 27 mmol/L (22-30); GFR AFRICAN-AMERICAN > 60; TOTAL PROTEIN 7.7 g/dL (6.3-8.3)
[2017-02-19 13:58] LABS: ALCOHOL SERUM < 10 mg/dl (0-10); CALCIUM 9.1 mg/dl (8.6-10.4)
[2017-02-19] MEDS ORDERED: Sodium Chloride 0.9% 1,000 ML IV ONE (14:12)
[2017-02-19 14:29] LABS: GLUCOSE,RANDOM 415 mg/dL (65-105)
[2017-02-19] MEDS ORDERED: (Novolin R) Insulin Human Regular 100 units/ml vial IV ONE (15:05)
[2017-02-19] MEDS ORDERED: (Novolin R) Insulin Human Regular 100 units/ml vial ONE (15:12)
[2017-02-19] MEDS ORDERED: cefTRIAXone IV 1 gm in Dextros 50 ML IVPB ONE (17:13)
--- NOTE | 2017-02-19 17:35 | PCM.BM ---
<MunaTonyGriselda - Last Filed: 02/19/17 17:34> Treatment Plan Problems - Problems identified on initial assessmt Potential for alcohol withdrawal Date Initiated: 02/19/17 Time Initiated: 17:34 Assessment reference: NA Status: Active Priority: 1 Treatment assets and liabiliti Patient Assests: ADL independent, negotiates basic needs, cognitively intact Patient Liabilities: substance abuse, medical problems (ETOH , DM) - Milieu Protocol Maintain good personal hygiene: daily Encourage regular showers, daily Remind patient to perform daily oral care, daily Assist patient to perform ADL's Conduct patient checks and document Observation sheet: Q15 minutes Maintain personal safety: every shift Educate patient to report safety concerns to staff, every shift Monitor environment for contraband/sharps Medication safety: Monitor for expected outcome, potential side effects: every shift, Assess barriers to learning: every shift, Assess readiness for medication education: every shift <Justo Roberts - Last Filed: 02/20/17 09:32> - Diagnosis (1) Alcohol use disorder, severe, dependence Status: Acute Interventions: 02/20/17 09:37 * Assess 7x/week regarding severity of withdrawal * Educate regarding risks, benefits, side effects and alternatives of medications * Use Motivational Interviewing for abstinence * Use CBT for relapse prevention * Medication management for withdrawal symptoms * Encourage medication assisted treatment * <Pattie Perez - Last Filed: 02/20/17 11:12> Family Contact Family involvement: Family/SO is involved Family contact: Patient agrees to contact - Goals for Treatment Patient goals for treatment: Complete detox and transition to o/p treatment--co- occurring to treat depression. Discharge/Continuing Care - Education Needs Education Needs: Patient Medication, Patient Diagnosis/Disease Process, Patient Coping Skills, Patient Anger Management skills, Patient Placement options, Patient Community resources, Patient Health Practices/Safety (type 1 diabetes) - Discharge Discharge Criteria: Free of agitation, Ability to care for self, No longer exhibiting s/s of withdrawal, Reduction of target symptoms
--- NOTE | 2017-02-19 20:37 | CP.PCM.CON ---
<Gregory Monroy - Last Filed: 02/19/17 20:34> History of Present Illness - History of Present Illness History of Present Illness: 21 yo F with PMHx of recurrent UTIs, DM1 (non-compliant w/ meds), Asthma and hx of right and left kidney abscess, presented to the ED for voluntary alcohol detoxification. Medicine is consulted for positive urinanalysis and high glucose. She was diagnosed with type 1 DM at age 11. She has not been compliant with her home medications for the past 3 years when she began abusing alcohol. She visited the ED 5 days ago for vomiting and was given Rx for Cefdinir however the patient did not fill her prescription. Of note, she was treated for acute pyelonephritis of right kidney in 07/2016 and acute pyelonephritis of left kidney in 01/2017. Patient currently complains of right flank pain which she rates a 5/10 that began 2 weeks ago. She denies all other questions on review of systems. She denies dysuria, urinary frequency. PMD: Dr Martinez PMHx: DM1, Asthma, Hx of pyleonephritis/abscess bilaterally, gastroparesis; hx of ectopic PSHx: cholecystectomy 2016; laproscopic removal of right ectopic/removal of hemoperitoneum 2016 Home Medications: denies/non-compliant Allergies: Shellfish - swelling of lips FamHx: Mother- DM, leukemia, heart dz; Father- DM; Maternal aunt- cervical CA SocialHx: smokes 5 cigarettes/day for past 3 months; drinks 2 pints of vodka per day; denies illicit drug/IV use; lives with family; works at [employer] Review of Systems - Constitutional Constitutional: absent: Chills, Fever - EENT Eyes: absent: Change in Vision Nose/Mouth/Throat: absent: Nasal Congestion - Cardiovascular Cardiovascular: absent: Chest Pain, Palpitations - Respiratory Respiratory: absent: Cough, Dyspnea - Gastrointestinal Gastrointestinal: absent: Abdominal Pain - Genitourinary Genitourinary: Flank Pain - Musculoskeletal Musculoskeletal: absent: Back Pain, Muscle Weakness - Integumentary Integumentary: absent: Lesions - Neurological Neurological: absent: Convulsions, Headaches - Psychiatric Psychiatric: absent: Homicidal Ideation, Suicidal Ideation Past Patient History - Infectious Disease Hx of Infectious Diseases: None - Tetanus Immunizations Tetanus Immunization: Unknown - Past Medical History & Family History Past Medical History?: Yes - Past Social History Smoking Status: Light Smoker < 10 Cigarettes Daily - CARDIAC Hx Cardiac Disorders: No Hx Hypertension: No - PULMONARY Hx Asthma: Yes - NEUROLOGICAL HX Cerebrovascular Accident: No Hx Seizures: No - HEENT Hx HEENT Problems: No - RENAL Hx Chronic Kidney Disease: Yes (''KIDNEY INFECTION'') - ENDOCRINE/METABOLIC Hx Endocrine Disorders: Yes Hx Diabetes Mellitus Type 1: Yes - INTEGUMENTARY Hx Dermatological Problems: No - MUSCULOSKELETAL/RHEUMATOLOGICAL Hx Falls: No - GASTROINTESTINAL Hx Gall Bladder Disease: Yes (CHOLECYSTECTOMY) - GENITOURINARY/GYNECOLOGICAL Hx Sexually Transmitted Disorders: No - PSYCHIATRIC Hx Substance Use: Yes (THC) - SURGICAL HISTORY Hx Cholecystectomy: Yes - ANESTHESIA Hx Anesthesia: Yes Hx Anesthesia Reactions: No Hx Malignant Hyperthermia: No Meds Allergies/Adverse Reactions: Allergies Allergy/AdvReac Type Severity Reaction Status Date / Time shellfish derived Allergy SWELLING Verified 02/19/17 12:17 - Medications Medications: Current Medications Chlordiazepoxide (Librium) 25 mg PO Q6 [facility] PRN Reason: Taper Stop: 02/23/17 23:59 Chlordiazepoxide (Librium) 25 mg PO Q4H PRN PRN Reason: Alcohol Withdrawal Influenza Virus Vaccine (Afluria) 45 mcg IM .ONCE ONE Stop: 02/21/17 10:01 Physical Exam - Head Exam Head Exam: ATRAUMATIC, NORMAL INSPECTION - Eye Exam Eye Exam: EOMI Pupil Exam: PERRL - ENT Exam ENT Exam: Mucous Membranes Moist - Neck Exam Neck exam: Positive for: Normal Inspection. Negative for: Lymphadenopathy - Respiratory Exam Respiratory Exam: Clear to Auscultation Bilateral. absent: Rales, Rhonchi, Wheezes - Cardiovascular Exam Cardiovascular Exam: Tachycardia, REGULAR RHYTHM, +S1, +S2. absent: Systolic Murmur - GI/Abdominal Exam GI & Abdominal Exam: Normal Bowel Sounds, Soft. absent: Distended, Rebound, Rigid, Tenderness - Rectal Exam Rectal Exam: Deferred - Extremities Exam Extremities exam: Positive for: normal inspection. Negative for: pedal edema - Back Exam Back exam: NORMAL INSPECTION. absent: CVA tenderness (L), CVA tenderness (R) - Psychiatric Exam Psychiatric exam: Normal Affect, Normal Mood - Skin Skin Exam: Dry, Intact, Normal Color, Warm Results - Vital Signs Recent Vital Signs: Last Vital Signs Temp 98 F 02/19/17 19:00 Pulse 75 09/25/17 19:00 Resp 18 02/19/17 19:00 BP 130/80 02/19/17 19:00 Pulse Ox 98 02/19/17 19:00 - Labs Result Diagrams: 02/19/17 13:39 02/19/17 13:39 Labs: Laboratory Results - last 24 hr 02/19/17 02/19/17 02/19/17 13:18 13:19 13:23 WBC RBC Hgb Hct MCV MCH MCHC RDW Plt Count MPV Neut % (Auto) Lymph % (Auto) Cameron % (Auto) Eos % (Auto) Baso % (Auto) Neut # Lymph # Cameron # Eos # Baso # Sodium Potassium Chloride Carbon Dioxide Anion Gap BUN Creatinine Est GFR ( Amer) Est GFR (Non-Af Amer) POC Glucose (mg/dL) 368 H Random Glucose Calcium Total Bilirubin AST ALT Alkaline Phosphatase Total Protein Albumin Globulin Albumin/Globulin Ratio Urine Color Yellow Urine Clarity Clear Urine pH 6.0 Ur Specific Browning 1.033 H Urine Protein Negative Urine Glucose (UA) 3+ H Urine Ketones Negative Urine Blood Negative Urine Nitrate Negative Urine Bilirubin Negative Urine Urobilinogen Normal Ur Leukocyte Esterase 2+ H Urine WBC (Auto) 27 H Urine RBC (Auto) 7 H Ur Squamous Epith Cells 18 H Urine Bacteria Rare Urine HCG, Qual Negative Urine Opiates Screen Negative Urine Methadone Screen Negative Ur Barbiturates Screen Negative Ur Phencyclidine Scrn Negative Ur Amphetamines Screen Negative U Benzodiazepines Scrn Negative U Oth Cocaine Metabols Negative U Cannabinoids Screen Positive Alcohol, Quantitative 02/19/17 02/19/17 02/19/17 13:39 13:39 16:01 WBC 7.2 RBC 4.32 Hgb 13.8 Hct 39.5 MCV 91.4 MCH 32.0 H MCHC 35.0 RDW 13.6 Plt Count 288 MPV 7.9 Neut % (Auto) 76.0 H Lymph % (Auto) 16.1 L Cameron % (Auto) 6.9 Eos % (Auto) 0.5 Baso % (Auto) 0.5 Neut # 5.5 Lymph # 1.2 Cameron # 0.5 Eos # 0.0 Baso # 0.0 Sodium 135 Potassium 3.6 Chloride 93 L Carbon Dioxide 27 Anion Gap 19 BUN 7 Creatinine 0.6 L Est GFR ( Amer) > 60 Est GFR (Non-Af Amer) > 60 POC Glucose (mg/dL) 165 H Random Glucose 415 H* D Calcium 9.1 Total Bilirubin 0.8 AST 23 ALT 34 Alkaline Phosphatase 59 Total Protein 7.7 Albumin 4.2 Globulin 3.4 Albumin/Globulin Ratio 1.2 Urine Color Urine Clarity Urine pH Ur Specific Browning Urine Protein Urine Glucose (UA) Urine Ketones Urine Blood Urine Nitrate Urine Bilirubin Urine Urobilinogen Ur Leukocyte Esterase Urine WBC (Auto) Urine RBC (Auto) Ur Squamous Epith Cells Urine Bacteria Urine HCG, Qual Urine Opiates Screen Urine Methadone Screen Ur Barbiturates Screen Ur Phencyclidine Scrn Ur Amphetamines Screen U Benzodiazepines Scrn U Oth Cocaine Metabols U Cannabinoids Screen Alcohol, Quantitative < 10 Assessment & Plan (1) Urinary tract infection Assessment and Plan: (+) UA, Hx of recurrent UTIs, Hx of right and left pyelonephritis; non- symptomatic Urine culture, Blood culture, F/U Ciprofloxacin 250mg q12 po Status: Acute (2) Uncontrolled diabetes mellitus Assessment and Plan: Type 1 DM, non-compliant with meds; glucose 415 on admission Regular insulin sliding scale - medium dose protocol Accuchecks achs Diabetic Diet Status: Acute (3) Prophylactic measure Assessment and Plan: GI: pepcid 20mg po daily DVT: not indicated Diet: Diabetic Status: Acute <García Bruno - Last Filed: 02/20/17 06:10> Meds - Medications Medications: Current Medications Chlordiazepoxide (Librium) 25 mg PO Q6 [facility] PRN Reason: Taper Stop: 02/23/17 23:59 Last Admin: 02/19/17 23:53 Dose: 25 mg Chlordiazepoxide (Librium) 25 mg PO Q4H PRN PRN Reason: Alcohol Withdrawal Last Admin: 02/19/17 21:21 Dose: 25 mg Ciprofloxacin (Cipro) 250 mg PO BID [facility] Last Admin: 02/19/17 21:38 Dose: 250 mg Clonidine HCl (Catapres) 0.1 mg PO Q4H PRN PRN Reason: Symptoms of alcohol withdrawl Famotidine (Pepcid) 20 mg PO DAILY [facility] Folic Acid (Folic Acid) 1 mg PO DAILY [facility] Influenza Virus Vaccine (Afluria) 45 mcg IM .ONCE ONE Stop: 02/21/17 10:01 Insulin Human Regular (Novolin R) 0 unit SC ACHS [facility] PRN Reason: Protocol Last Admin: 02/19/17 21:20 Dose: 4 unit Multivitamins (Hexavitamin) 1 tab PO DAILY [facility] Thiamine HCl (Vitamin B1 Tab) 100 mg PO DAILY [facility] Trazodone HCl (Desyrel) 50 mg PO HS PRN PRN Reason: Insomnia Last Admin: 02/19/17 23:53 Dose: 50 mg Results - Vital Signs Recent Vital Signs: Last Vital Signs Temp 98 F 02/19/17 23:50 Pulse 95 H 02/19/17 23:50 Resp 18 02/19/17 23:50 BP 135/65 02/19/17 23:50 Pulse Ox 98 02/19/17 23:50 - Labs Result Diagrams: 02/19/17 13:39 02/19/17 13:39 Labs: Laboratory Results - last 24 hr 02/19/17 02/19/17 02/19/17 13:18 13:19 13:23 WBC RBC Hgb Hct MCV MCH MCHC RDW Plt Count MPV Neut % (Auto) Lymph % (Auto) Cameron % (Auto) Eos % (Auto) Baso % (Auto) Neut # Lymph # Cameron # Eos # Baso # Sodium Potassium Chloride Carbon Dioxide Anion Gap BUN Creatinine Est GFR ( Amer) Est GFR (Non-Af Amer) POC Glucose (mg/dL) 368 H Random Glucose Calcium Total Bilirubin AST ALT Alkaline Phosphatase Total Protein Albumin Globulin Albumin/Globulin Ratio Urine Color Yellow Urine Clarity Clear Urine pH 6.0 Ur Specific Browning 1.033 H Urine Protein Negative Urine Glucose (UA) 3+ H Urine Ketones Negative Urine Blood Negative Urine Nitrate Negative Urine Bilirubin Negative Urine Urobilinogen Normal Ur Leukocyte Esterase 2+ H Urine WBC (Auto) 27 H Urine RBC (Auto) 7 H Ur Squamous Epith Cells 18 H Urine Bacteria Rare Urine HCG, Qual Negative Urine Opiates Screen Negative Urine Methadone Screen Negative Ur Barbiturates Screen Negative Ur Phencyclidine Scrn Negative Ur Amphetamines Screen Negative U Benzodiazepines Scrn Negative U Oth Cocaine Metabols Negative U Cannabinoids Screen Positive Alcohol, Quantitative 02/19/17 02/19/17 02/19/17 13:39 13:39 16:01 WBC 7.2 RBC 4.32 Hgb 13.8 Hct 39.5 MCV 91.4 MCH 32.0 H MCHC 35.0 RDW 13.6 Plt Count 288 MPV 7.9 Neut % (Auto) 76.0 H Lymph % (Auto) 16.1 L Cameron % (Auto) 6.9 Eos % (Auto) 0.5 Baso % (Auto) 0.5 Neut # 5.5 Lymph # 1.2 Cameron # 0.5 Eos # 0.0 Baso # 0.0 Sodium 135 Potassium 3.6 Chloride 93 L Carbon Dioxide 27 Anion Gap 19 BUN 7 Creatinine 0.6 L Est GFR ( Amer) > 60 Est GFR (Non-Af Amer) > 60 POC Glucose (mg/dL) 165 H Random Glucose 415 H* D Calcium 9.1 Total Bilirubin 0.8 AST 23 ALT 34 Alkaline Phosphatase 59 Total Protein 7.7 Albumin 4.2 Globulin 3.4 Albumin/Globulin Ratio 1.2 Urine Color Urine Clarity Urine pH Ur Specific Browning Urine Protein Urine Glucose (UA) Urine Ketones Urine Blood Urine Nitrate Urine Bilirubin Urine Urobilinogen Ur Leukocyte Esterase Urine WBC (Auto) Urine RBC (Auto) Ur Squamous Epith Cells Urine Bacteria Urine HCG, Qual Urine Opiates Screen Urine Methadone Screen Ur Barbiturates Screen Ur Phencyclidine Scrn Ur Amphetamines Screen U Benzodiazepines Scrn U Oth Cocaine Metabols U Cannabinoids Screen Alcohol, Quantitative < 10 02/19/17 02/20/17 21:14 03:14 WBC RBC Hgb Hct MCV MCH MCHC RDW Plt Count MPV Neut % (Auto) Lymph % (Auto) Cameron % (Auto) Eos % (Auto) Baso % (Auto) Neut # Lymph # Cameron # Eos # Baso # Sodium Potassium Chloride Carbon Dioxide Anion Gap BUN Creatinine Est GFR ( Amer) Est GFR (Non-Af Amer) POC Glucose (mg/dL) 440 H* 289 H Random Glucose Calcium Total Bilirubin AST ALT Alkaline Phosphatase Total Protein Albumin Globulin Albumin/Globulin Ratio Urine Color Urine Clarity Urine pH Ur Specific [place] Urine Protein Urine Glucose (UA) Urine Ketones Urine Blood Urine Nitrate Urine Bilirubin Urine Urobilinogen Ur Leukocyte Esterase Urine WBC (Auto) Urine RBC (Auto) Ur Squamous Epith Cells Urine Bacteria Urine HCG, Qual Urine Opiates Screen Urine Methadone Screen Ur Barbiturates Screen Ur Phencyclidine Scrn Ur Amphetamines Screen U Benzodiazepines Scrn U Oth Cocaine Metabols U Cannabinoids Screen Alcohol, Quantitative Assessment & Plan - Date & Time Date: 02/20/17 (I have seen and examined the patient. I agree with the findings and plan of care as documented by Dr. Monroy. Patient with UTI and uncontrolled diabetes. Cipro PO for now due to no IV access in detox. Rocephin received in ED. Check urine and blood cultures. Accucheck and NISS for now. Poor compliance with home meds. Diabetic diet. Monitor for acute changes. Alcohol abuse to be managed by detox.) Time: 06:08 Attending/Attestation - Attestation I have personally seen and examined this patient.: Yes I have fully participated in the care of the patient.: Yes I have reviewed all pertinent clinical information: Yes
[2017-02-19] MEDS: (Novolin R) Insulin Human Regular 100 units/ml vial SC SCH (21:20)
[2017-02-20 08:33] LABS: BASO % 0.5 % (0.0-2.0); EOS # 0.1 K/uL (0.0-0.7); EOS % 1.3 % (0.0-4.0); HEMATOCRIT 33.9 % (34.0-47.0); LYMPH # 2.1 K/uL (1.0-4.3); LYMPH % 28.9 % (20.0-40.0); MEAN CELL VOLUME 91.6 fL (81.0-99.0); MEAN CORPUSCULAR HEMOGLOBIN 32.4 pg (27.0-31.0); MEAN CORPUSCULAR HGB CONC 35.4 g/dL (33.0-37.0); MEAN PLATELET VOLUME 8.1 fL (7.2-11.7); MONO # 0.6 K/uL (0.0-0.8); MONO % 8.3 % (0.0-10.0); RED CELL DISTRIBUTION WIDTH 13.7 % (11.5-14.5); WHITE BLOOD COUNT 7.2 K/uL (4.8-10.8)
[2017-02-20 08:41] LABS: CHLORIDE 95 mmol/L (98-107)
[2017-02-20 08:42] LABS: POTASSIUM 3.4 mmol/L (3.6-5.2); SODIUM 136 mmol/L (132-148)
[2017-02-20 08:44] LABS: ALB/GLOB RATIO 1.1 (1.0-2.1); ALKALINE PHOSPHATASE 42 U/L (38-126); ALT/SGPT 31 U/L (9-52); AST/SGOT 28 U/L (14-36); BILIRUBIN,TOTAL 0.4 mg/dL (0.2-1.3); BLOOD UREA NITROGEN 10 mg/dL (7-17); CARBON DIOXIDE 27 mmol/L (22-30); GFR AFRICAN-AMERICAN > 60; GLUCOSE,RANDOM 291 mg/dL (65-105); TOTAL PROTEIN 6.1 g/dL (6.3-8.3)
[2017-02-20 08:45] LABS: CALCIUM 8.9 mg/dl (8.6-10.4)
[2017-02-20] MEDS: (Novolin R) Insulin Human Regular 100 units/ml vial SC SCH ×4 (09:01→21:58)
[2017-02-20] MEDS: Multiple Vitamins Tab PO SCH (09:25)
[2017-02-20] MEDS ORDERED: Insulin Detemir 100 units/ml Vial (Levemir) SC SCH (10:00)
[2017-02-20] MEDS: (Novolog) Insulin Aspart, Recombinant 100 u/ml 10 ml vial SC SCH ×2 (12:29→16:42)
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
--- NOTE | 2017-02-20 16:29 | CP.PCM.PN ---
<Guerrero Messer - Last Filed: 02/20/17 17:06> Subjective - Date & Time of Evaluation Date of Evaluation: 02/20/17 Time of Evaluation: 10:10 - Subjective Subjective: PGY1 Medicine Note for Dr. Pfeiffer Patient seen and examined at bedside this morning. She states that she has not been taking her insulin for close to 3 years because she has been more focused on her drinking. This has caused her to be hospitalized multiple times throughout the past few years. Patient has no complaints at this time. Denies f/ c, n/v, d/c, sob, cp, vision changes, headache or urinary symptoms. Objective - Vital Signs/Intake and Output Vital Signs (last 24 hours): Temp Pulse Resp BP Pulse Ox 98.2 F 99 H 18 137/87 100 02/20/17 13:00 02/20/17 13:00 02/20/17 13:00 02/20/17 13:00 02/20/17 13:00 - Medications Medications: Current Medications Chlordiazepoxide (Librium) 25 mg PO Q6 [facility] PRN Reason: Taper Stop: 02/23/17 23:59 Last Admin: 02/20/17 11:03 Dose: 25 mg Chlordiazepoxide (Librium) 25 mg PO Q4H PRN PRN Reason: Alcohol Withdrawal Last Admin: 02/19/17 21:21 Dose: 25 mg Ciprofloxacin (Cipro) 250 mg PO BID [facility] Last Admin: 02/20/17 09:25 Dose: 250 mg Clonidine HCl (Catapres) 0.1 mg PO Q4H PRN PRN Reason: Symptoms of alcohol withdrawl Famotidine (Pepcid) 20 mg PO DAILY [facility] Last Admin: 02/20/17 09:25 Dose: 20 mg Folic Acid (Folic Acid) 1 mg PO DAILY [facility] Last Admin: 02/20/17 09:25 Dose: 1 mg Ibuprofen (Motrin Tab) 600 mg PO TID PRN PRN Reason: moderate pain Last Admin: 02/20/17 11:25 Dose: 600 mg Influenza Virus Vaccine (Afluria) 45 mcg IM .ONCE ONE Stop: 02/21/17 10:01 Insulin Aspart (Novolog) 3 unit SC TIDAC [facility] Last Admin: 02/20/17 12:29 Dose: 3 unit Insulin Glargine (Lantus) 10 unit SC HS [facility] Insulin Human Regular (Novolin R) 0 unit SC ACHS D[facility] PRN Reason: Protocol Last Admin: 02/20/17 12:27 Dose: 4 unit Metformin HCl (Glucophage) 1,000 mg PO BID [facility] Last Admin: 02/20/17 11:26 Dose: 1,000 mg Multivitamins (Hexavitamin) 1 tab PO DAILY [facility] Last Admin: 02/20/17 09:25 Dose: 1 tab Nicotine (Nicoderm Cq) 1 patch TD DAILY [facility] Last Admin: 02/20/17 12:20 Dose: 1 patch Ondansetron HCl (Zofran Tab) 4 mg PO Q6 PRN PRN Reason: Nausea/Vomiting Last Admin: 02/20/17 15:43 Dose: 4 mg Thiamine HCl (Vitamin B1 Tab) 100 mg PO DAILY [facility] Last Admin: 02/20/17 09:25 Dose: 100 mg Trazodone HCl (Desyrel) 50 mg PO HS PRN PRN Reason: Insomnia Last Admin: 02/19/17 23:53 Dose: 50 mg - Labs Labs: 02/20/17 08:11 02/20/17 08:11 - Constitutional Appears: Well, No Acute Distress - Head Exam Head Exam: ATRAUMATIC, NORMOCEPHALIC - Eye Exam Eye Exam: EOMI, Normal appearance - ENT Exam ENT Exam: Mucous Membranes Moist - Respiratory Exam Respiratory Exam: Clear to Ausculation Bilateral, NORMAL BREATHING PATTERN. absent: Accessory Muscle Use, Rales, Rhonchi, Wheezes, Respiratory Distress - Cardiovascular Exam Cardiovascular Exam: REGULAR RHYTHM, +S1, +S2 - GI/Abdominal Exam GI & Abdominal Exam: Soft, Normal Bowel Sounds. absent: Distended, Firm, Guarding, Rigid, Tenderness - Extremities Exam Extremities Exam: absent: Calf Tenderness, Pedal Edema - Neurological Exam Neurological Exam: Alert, Awake, Oriented x3 - Psychiatric Exam Psychiatric exam: Normal Affect, Normal Mood. absent: Depressed - Skin Skin Exam: Dry, Normal Color, Warm Assessment and Plan - Assessment and Plan (Free Text) Assessment: Urinary tract infection Assessment and Plan: (+) UA, Hx of recurrent UTIs, Hx of right and left pyelonephritis; non- symptomatic Urine culture, Blood culture, F/U Ciprofloxacin 250mg q12 po Uncontrolled diabetes mellitus Assessment and Plan: Type 1 DM, non-compliant with meds; glucose 415 on admission Patient states insulin regiment 3 years ago was 3 units of novolog TIDAC and 10u of Lantus HS. Started on 3 units of novolog TIDAC and 10u of Lantus HS. Regular insulin sliding scale - medium dose protocol Accuchrajesh morrissey Diabetic Diet F/U HgA1c and Lipid Panel Prophylactic measure Assessment and Plan: GI: pepcid 20mg po daily DVT: not indicated, ambulatory Diet: Diabetic Case discussed with Dr. Margarette Messer PGY1 <Deshawn Pfeiffer - Last Filed: 02/20/17 18:21> Objective - Vital Signs/Intake and Output Vital Signs (last 24 hours): Temp Pulse Resp BP Pulse Ox 98.2 F 99 H 18 137/87 100 02/20/17 13:00 02/20/17 13:00 02/20/17 13:00 02/20/17 13:00 02/20/17 13:00 - Medications Medications: Current Medications Chlordiazepoxide (Librium) 25 mg PO Q6 [facility] PRN Reason: Taper Stop: 02/23/17 23:59 Last Admin: 02/20/17 17:08 Dose: 25 mg Chlordiazepoxide (Librium) 25 mg PO Q4H PRN PRN Reason: Alcohol Withdrawal Last Admin: 02/19/17 21:21 Dose: 25 mg Ciprofloxacin (Cipro) 250 mg PO BID [facility] Last Admin: 02/20/17 17:08 Dose: 250 mg Clonidine HCl (Catapres) 0.1 mg PO Q4H PRN PRN Reason: Symptoms of alcohol withdrawl Famotidine (Pepcid) 20 mg PO DAILY [facility] Last Admin: 02/20/17 09:25 Dose: 20 mg Folic Acid (Folic Acid) 1 mg PO DAILY [facility] Last Admin: 02/20/17 09:25 Dose: 1 mg Ibuprofen (Motrin Tab) 600 mg PO TID PRN PRN Reason: moderate pain Last Admin: 02/20/17 11:25 Dose: 600 mg Influenza Virus Vaccine (Afluria) 45 mcg IM .ONCE ONE Stop: 02/21/17 10:01 Insulin Aspart (Novolog) 3 unit SC TIDAC [facility] Last Admin: 02/20/17 16:42 Dose: 3 unit Insulin Glargine (Lantus) 10 unit SC HS [facility] Insulin Human Regular (Novolin R) 0 unit SC ACHS [facility] PRN Reason: Protocol Last Admin: 02/20/17 16:43 Dose: 4 unit Metformin HCl (Glucophage) 1,000 mg PO BID [facility] Last Admin: 02/20/17 17:07 Dose: 1,000 mg Multivitamins (Hexavitamin) 1 tab PO DAILY [facility] Last Admin: 02/20/17 09:25 Dose: 1 tab Nicotine (Nicoderm Cq) 1 patch TD DAILY [facility] Last Admin: 02/20/17 12:20 Dose: 1 patch Ondansetron HCl (Zofran Tab) 4 mg PO Q6 PRN PRN Reason: Nausea/Vomiting Last Admin: 02/20/17 15:43 Dose: 4 mg Potassium Chloride (K-Dur 20 Meq Er Tab) 20 meq PO ONCE ONE Stop: 02/21/17 06:31 Thiamine HCl (Vitamin B1 Tab) 100 mg PO DAILY DOLORES Last Admin: 02/20/17 09:25 Dose: 100 mg Trazodone HCl (Desyrel) 50 mg PO HS PRN PRN Reason: Insomnia Last Admin: 02/19/17 23:53 Dose: 50 mg - Labs Labs: 02/20/17 08:11 02/20/17 08:11 Attending/Attestation - Attestation I have personally seen and examined this patient.: Yes I have fully participated in the care of the patient.: Yes I have reviewed all pertinent clinical information, including history, physical exam and plan: Yes Notes (Text): 02/20/17 18:21 Patient was seen and examined at bedside with the resident Patient appears comfortable We will start the patient on her home medication regimen for a diabetes mellitus We will replace the potassium and check the level again We will continue antibiotic for UTI I discussed the plan of care with the resident and agree with the assessment and plan documented.
[2017-02-20] MEDS ORDERED: (Lantus) Insulin Glargine, Recombinant SC SCH (22:00)
[2017-02-21] MEDS ORDERED: Potassium Chloride 20 mEq ER Tab PO ONE (06:30)
[2017-02-21 08:06] LABS: CHLORIDE 96 mmol/L (98-107); POTASSIUM 3.6 mmol/L (3.6-5.2); SODIUM 136 mmol/L (132-148)
[2017-02-21 08:09] LABS: BLOOD UREA NITROGEN 8 mg/dL (7-17); CARBON DIOXIDE 27 mmol/L (22-30); CHOLESTEROL 58 mg/dL (0-199); GFR AFRICAN-AMERICAN > 60
[2017-02-21 08:10] LABS: CALCIUM 8.5 mg/dl (8.6-10.4); GLUCOSE,RANDOM 189 mg/dL (65-105)
--- NOTE | 2017-02-21 09:13 | CP.PCM.PN ---
Subjective - Date & Time of Evaluation Date of Evaluation: 02/21/17 Time of Evaluation: 06:50 - Subjective Subjective: PGY1 Medicine Note for Dr. Pfeiffer Patient seen and examined at bedside this morning. Patient states that she experienced a headache and vomiting yesterday but believes it was due to withdraw from alcohol. She currently feels fine and has no complaints at this time. Denies f/c, n/v, d/c, sob, cp, vision changes, headache or urinary symptoms. Objective - Vital Signs/Intake and Output Vital Signs (last 24 hours): Temp Pulse Resp BP Pulse Ox 98.1 F 90 18 114/76 99 02/21/17 06:18 02/21/17 06:18 02/21/17 06:18 02/21/17 06:18 02/21/17 06:18 - Medications Medications: Current Medications Chlordiazepoxide (Librium) 25 mg PO TID [facility] PRN Reason: Taper Stop: 02/23/17 23:59 Last Admin: 02/20/17 17:08 Dose: 25 mg Chlordiazepoxide (Librium) 25 mg PO Q4H PRN PRN Reason: Alcohol Withdrawal Last Admin: 02/21/17 00:36 Dose: 25 mg Ciprofloxacin (Cipro) 250 mg PO BID [facility] Last Admin: 02/20/17 17:08 Dose: 250 mg Clonidine HCl (Catapres) 0.1 mg PO Q4H PRN PRN Reason: Symptoms of alcohol withdrawl Famotidine (Pepcid) 20 mg PO DAILY [facility] Last Admin: 02/20/17 09:25 Dose: 20 mg Folic Acid (Folic Acid) 1 mg PO DAILY [facility] Last Admin: 02/20/17 09:25 Dose: 1 mg Ibuprofen (Motrin Tab) 600 mg PO TID PRN PRN Reason: moderate pain Last Admin: 02/20/17 20:00 Dose: 600 mg Influenza Virus Vaccine (Afluria) 45 mcg IM .ONCE ONE Stop: 02/21/17 10:01 Insulin Aspart (Novolog) 3 unit SC TIDAC [facility] Last Admin: 02/20/17 16:42 Dose: 3 unit Insulin Glargine (Lantus) 10 unit SC HS [facility] Last Admin: 02/20/17 21:55 Dose: 10 units Insulin Human Regular (Novolin R) 0 unit SC ACHS [facility] PRN Reason: Protocol Last Admin: 02/20/17 21:58 Dose: Not Given Metformin HCl (Glucophage) 1,000 mg PO BID [facility] Last Admin: 02/20/17 17:07 Dose: 1,000 mg Multivitamins (Hexavitamin) 1 tab PO DAILY [facility] Last Admin: 02/20/17 09:25 Dose: 1 tab Nicotine (Nicoderm Cq) 1 patch TD DAILY [facility] Last Admin: 02/20/17 12:20 Dose: 1 patch Ondansetron HCl (Zofran Tab) 4 mg PO Q6 PRN PRN Reason: Nausea/Vomiting Last Admin: 02/20/17 15:43 Dose: 4 mg Thiamine HCl (Vitamin B1 Tab) 100 mg PO DAILY [facility] Last Admin: 02/20/17 09:25 Dose: 100 mg Trazodone HCl (Desyrel) 50 mg PO HS PRN PRN Reason: Insomnia Last Admin: 02/20/17 22:31 Dose: 50 mg - Labs Labs: 02/20/17 08:11 02/21/17 07:25 - Constitutional Appears: Non-toxic, No Acute Distress - Head Exam Head Exam: ATRAUMATIC, NORMOCEPHALIC - Eye Exam Eye Exam: EOMI, Normal appearance - ENT Exam ENT Exam: Mucous Membranes Moist - Respiratory Exam Respiratory Exam: Clear to Ausculation Bilateral, NORMAL BREATHING PATTERN. absent: Accessory Muscle Use, Rales, Rhonchi, Wheezes, Respiratory Distress - Cardiovascular Exam Cardiovascular Exam: REGULAR RHYTHM, +S1, +S2 - GI/Abdominal Exam GI & Abdominal Exam: Soft, Normal Bowel Sounds. absent: Distended, Firm, Guarding, Rigid, Tenderness - Extremities Exam Extremities Exam: Full ROM, Normal Inspection. absent: Calf Tenderness, Pedal Edema - Neurological Exam Neurological Exam: Alert, Awake, Normal Gait, Oriented x3 - Psychiatric Exam Psychiatric exam: Normal Affect, Normal Mood - Skin Skin Exam: Dry, Intact, Normal Color, Warm Assessment and Plan - Assessment and Plan (Free Text) Assessment: Urinary tract infection Assessment and Plan: (+) UA, Hx of recurrent UTIs, Hx of right and left pyelonephritis; non- symptomatic Ciprofloxacin 250mg q12 po - no urinary symptoms, d/c abx tomorrow Uncontrolled diabetes mellitus Assessment and Plan: Type 1 DM, non-compliant with meds; glucose 415 on admission Blood glucose range 189-299. Patient states insulin regiment 3 years ago was 3 units of novolog TIDAC and 10u of Lantus HS. Increased insulin regiment to 5 units of novolog TIDAC and 12u of Lantus HS. Regular insulin sliding scale - medium dose protocol Accuchecks achs Diabetic Diet HgA1c 8.6 Lipid Panel: Trigly - 53, Chol - 58, LDL <30, HDL - 51 Prophylactic measure Assessment and Plan: GI: pepcid 20mg po daily DVT: not indicated, ambulatory Diet: Diabetic Case discussed with Dr. Margarette Masters Gui PGY1
[2017-02-21] MEDS: (Novolin R) Insulin Human Regular 100 units/ml vial SC SCH ×5 (09:27→22:19)
[2017-02-21] MEDS: (Novolog) Insulin Aspart, Recombinant 100 u/ml 10 ml vial SC SCH ×4 (09:27→17:13)
[2017-02-21] MEDS ORDERED: Influenza Virus Vaccine (Afluria Inactive dont use ) IM ONE (10:00)
[2017-02-21] MEDS: Multiple Vitamins Tab PO SCH (10:05)
--- NOTE | 2017-02-21 15:14 | PCM.PYCHPN ---
Psychiatric Progress Note - Psychiatric Progress Note Patient seen today, length of contact: 16 min Patient Chief Complaint: "I'm okay I guess" Problems Identified/Issues Discussed: Pt is seen, chart reviewed, case discussed with staff. Pt is compliant with medications and reports no side effects. Pt reports very poor sleep last night (~2 hours). She is told that her meds will be adjusted to help with sleep. Symptoms are improving but pt needs more time to stabilize. Staff reports that she told a counselor "I'm never gonna get a drum cleaner on my drinking until I get a drum cleaner on my depression." Treatment for depression will be started today. Support and psychoeducation given, CBT and ND used briefly. After care discussed. She plans to stay with her cousin while attending outpatient rehab program in or near [place]. Medication Change: Yes (Detox meds change daily) Medical Record Reviewed: Yes Mental Status Examination - Cognitive Function Orientation: Person, Place, Situation, Time Memory: Intact Attention: WNL Concentration: WNL Association: WNL Fund of Knowledge: WNL - Mood Mood: Depressed - Affect Affect: Blunted - Speech Speech: Appropriate - Formal Thought Process Formal Thought Process: No Impairment - Suicidal Ideation Suicidal Ideation: No - Homicidal Ideation Homicidal Ideation: No Goal/Treatment Plan - Goal/Treatment Plan Need for Continued Stay: Discharge may exacerbated symptoms Progress Toward Problem(s) and Goals/Treatment Plan: Alcohol use disorder, severe Support and psychoeducation given ND for abstinence and CBT for relapse prevention Attend groups and activities daily Alcohol withdrawal Support and psychoeducation given Continue Librium taper Start Desyrel 100 mg PO HS PRN Continue medications as prescribed Tobacco use disorder, moderate Support and psychoeducation given ND for abstinence and CBT for relapse prevention Attend groups and activities daily Nicoderm Cq 1 patch TD daily DOLORES Depressive disorder, unspecified Support and psychoeducation daily Attend groups and activities daily Start Lexapro 5 mg PO daily [facility]
[2017-02-21] MEDS: (Lantus) Insulin Glargine, Recombinant SC SCH (22:16)
--- NOTE | 2017-02-22 07:46 | CP.PCM.PN ---
<Guerrero Messer - Last Filed: 02/22/17 17:40> Subjective - Date & Time of Evaluation Date of Evaluation: 02/22/17 Time of Evaluation: 07:46 - Subjective Subjective: PGY1 Medicine Note for Dr. Justin Sotomayor Patient seen and examined at bedside this morning. Patient states that she did not have any episodes of vomiting overnight. She is feeling better and currently has no complaints. Denies f/c, n/v, d/c, sob, cp, headache, numbness or tingling. Objective - Vital Signs/Intake and Output Vital Signs (last 24 hours): Temp Pulse Resp BP Pulse Ox 97.4 F L 80 18 127/86 100 02/22/17 06:19 02/22/17 06:19 02/22/17 06:19 02/22/17 06:19 02/22/17 06:19 - Medications Medications: Current Medications Chlordiazepoxide (Librium) 25 mg PO BID [facility] PRN Reason: Taper Stop: 02/23/17 23:59 Last Admin: 02/21/17 17:33 Dose: 25 mg Chlordiazepoxide (Librium) 25 mg PO Q4H PRN PRN Reason: Alcohol Withdrawal Last Admin: 02/21/17 00:36 Dose: 25 mg Ciprofloxacin (Cipro) 250 mg PO BID [facility] Last Admin: 02/21/17 17:33 Dose: 250 mg Clonidine HCl (Catapres) 0.1 mg PO Q4H PRN PRN Reason: Symptoms of alcohol withdrawl Escitalopram Oxalate (Lexapro) 5 mg PO DAILY [facility] Last Admin: 02/21/17 10:55 Dose: 5 mg Famotidine (Pepcid) 20 mg PO DAILY [facility] Last Admin: 02/21/17 10:05 Dose: 20 mg Folic Acid (Folic Acid) 1 mg PO DAILY [facility] Last Admin: 02/21/17 10:05 Dose: 1 mg Ibuprofen (Motrin Tab) 600 mg PO TID PRN PRN Reason: moderate pain Last Admin: 02/21/17 19:47 Dose: 600 mg Insulin Aspart (Novolog) 5 unit SC TIDAC [facility] Last Admin: 02/21/17 17:13 Dose: 5 unit Insulin Glargine (Lantus) 12 unit SC HS [facility] Last Admin: 02/21/17 22:16 Dose: 12 units Insulin Human Regular (Novolin R) 0 unit SC ACHS DOLORES PRN Reason: Protocol Last Admin: 02/21/17 22:19 Dose: Not Given Metformin HCl (Glucophage) 1,000 mg PO BID [facility] Last Admin: 02/21/17 17:33 Dose: 1,000 mg Multivitamins (Hexavitamin) 1 tab PO DAILY [facility] Last Admin: 02/21/17 10:05 Dose: 1 tab Nicotine (Nicoderm Cq) 1 patch TD DAILY [facility] Last Admin: 02/21/17 10:05 Dose: 1 patch Ondansetron HCl (Zofran Tab) 4 mg PO Q6 PRN PRN Reason: Nausea/Vomiting Last Admin: 02/21/17 19:47 Dose: 4 mg Thiamine HCl (Vitamin B1 Tab) 100 mg PO DAILY [facility] Last Admin: 02/21/17 10:06 Dose: 100 mg Trazodone HCl (Desyrel) 100 mg PO HS PRN PRN Reason: Insomnia Last Admin: 02/21/17 22:17 Dose: 100 mg - Labs Labs: 02/20/17 08:11 02/21/17 07:25 - Constitutional Appears: Non-toxic, No Acute Distress - Head Exam Head Exam: ATRAUMATIC, NORMOCEPHALIC - Eye Exam Eye Exam: EOMI, Normal appearance - ENT Exam ENT Exam: Mucous Membranes Moist - Neck Exam Neck Exam: Full ROM - Respiratory Exam Respiratory Exam: Clear to Ausculation Bilateral, NORMAL BREATHING PATTERN. absent: Accessory Muscle Use, Rales, Rhonchi, Wheezes - Cardiovascular Exam Cardiovascular Exam: REGULAR RHYTHM, +S1, +S2 - GI/Abdominal Exam GI & Abdominal Exam: Soft, Normal Bowel Sounds. absent: Distended, Firm, Guarding, Rigid, Tenderness - Neurological Exam Neurological Exam: Alert, Awake, Normal Gait, Oriented x3 - Psychiatric Exam Psychiatric exam: Normal Affect, Normal Mood - Skin Skin Exam: Dry, Normal Color, Warm Assessment and Plan - Assessment and Plan (Free Text) Assessment: Urinary tract infection Assessment and Plan: (+) UA, Hx of recurrent UTIs, Hx of right and left pyelonephritis; non- symptomatic discontinued Ciprofloxacin 250mg q12 po - never had any urinary symptoms, d/c abx after 3 days. Uncontrolled diabetes mellitus Assessment and Plan: Type 1 DM, non-compliant with meds; glucose 415 on admission Blood glucose range 145-222 Patient stated her insulin regiment 3 years ago was 3 units of novolog TIDAC and 10u of Lantus HS. Increased insulin regiment to 5 units of novolog TIDAC and 12u of Lantus HS. Regular insulin sliding scale - medium dose protocol d/c Metformin Accuchecks achs Diabetic Diet HgA1c 8.6 Lipid Panel: Trigly - 53, Chol - 58, LDL <30, HDL - 51 re-evaluate insulin regiment after full 24 hours. Prophylactic measure Assessment and Plan: GI: pepcid 20mg po daily DVT: not indicated, ambulatory Diet: Diabetic Case discussed with Dr. Justin Messer PGY1 <Demetrio Sotomayor - Last Filed: 02/22/17 20:44> Objective - Vital Signs/Intake and Output Vital Signs (last 24 hours): Temp Pulse Resp BP Pulse Ox 98.3 F 102 H 18 147/87 100 02/22/17 20:25 02/22/17 20:25 02/22/17 20:25 02/22/17 20:25 02/22/17 20:25 - Medications Medications: Current Medications Chlordiazepoxide (Librium) 25 mg PO BID [facility] PRN Reason: Taper Stop: 02/23/17 23:59 Last Admin: 02/22/17 18:00 Dose: 25 mg Chlordiazepoxide (Librium) 25 mg PO Q4H PRN PRN Reason: Alcohol Withdrawal Last Admin: 02/21/17 00:36 Dose: 25 mg Clonidine HCl (Catapres) 0.1 mg PO Q4H PRN PRN Reason: Symptoms of alcohol withdrawl Escitalopram Oxalate (Lexapro) 5 mg PO DAILY [facility] Last Admin: 02/22/17 13:18 Dose: 5 mg Famotidine (Pepcid) 20 mg PO DAILY [facility] Last Admin: 02/22/17 10:16 Dose: 20 mg Folic Acid (Folic Acid) 1 mg PO DAILY [facility] Last Admin: 02/22/17 10:17 Dose: 1 mg Ibuprofen (Motrin Tab) 600 mg PO TID PRN PRN Reason: moderate pain Last Admin: 02/22/17 15:01 Dose: 600 mg Insulin Aspart (Novolog) 5 unit SC TIDAC [facility] Last Admin: 02/22/17 17:32 Dose: 5 unit Insulin Glargine (Lantus) 12 unit SC HS [facility] Last Admin: 02/21/17 22:16 Dose: 12 units Insulin Human Regular (Novolin R) 0 unit SC ACHS [facility] PRN Reason: Protocol Multivitamins (Hexavitamin) 1 tab PO DAILY [facility] Last Admin: 02/22/17 10:16 Dose: 1 tab Nicotine (Nicoderm Cq) 1 patch TD DAILY [facility] Last Admin: 02/22/17 10:15 Dose: 1 patch Ondansetron HCl (Zofran Tab) 4 mg PO Q6 PRN PRN Reason: Nausea/Vomiting Last Admin: 02/22/17 18:43 Dose: 4 mg Thiamine HCl (Vitamin B1 Tab) 100 mg PO DAILY [facility] Last Admin: 02/22/17 10:16 Dose: 100 mg Trazodone HCl (Desyrel) 100 mg PO HS PRN PRN Reason: Insomnia Last Admin: 02/21/17 22:17 Dose: 100 mg - Labs Labs: 02/20/17 08:11 02/21/17 07:25 Attending/Attestation - Attestation I have personally seen and examined this patient.: Yes I have fully participated in the care of the patient.: Yes I have reviewed all pertinent clinical information, including history, physical exam and plan: Yes Notes (Text): 02/22/17 20:44 Patient was seen and examined at 5:15 PM 02/22/17 Exam, assessment and plan were thoroughly gone over with the resident. Demetrio Sotomayor D.O.
[2017-02-22] MEDS: (Novolin R) Insulin Human Regular 100 units/ml vial SC SCH ×4 (09:00→21:34)
[2017-02-22] MEDS: (Novolog) Insulin Aspart, Recombinant 100 u/ml 10 ml vial SC SCH ×3 (09:02→17:32)
[2017-02-22] MEDS: Multiple Vitamins Tab PO SCH (10:16)
--- NOTE | 2017-02-22 11:26 | PCM.PYCHPN ---
Psychiatric Progress Note - Psychiatric Progress Note Patient seen today, length of contact: 15 min Patient Chief Complaint: "My treatment is going good" Problems Identified/Issues Discussed: Pt is seen, chart reviewed, case discussed with staff. Pt is compliant with medications and reports no side effects. She reports of some nausea and vomiting but requested meds for relief. She slept well last night and states her mood is "good." She denies hallucinations, delusions and SI. Support and psychoeducation given, CBT and IL used briefly. After care discussed. She reports that she was able to make amends with her mother over the phone. After discharge she will go to live with her cousin, and her mother will live nearby. She is planning for outpatient rehab. Medication Change: Yes (Detox meds change daily) Medical Record Reviewed: Yes Mental Status Examination - Cognitive Function Orientation: Person, Place, Situation, Time Memory: Intact Attention: WNL Concentration: WNL Association: WN Fund of Knowledge: WNL - Mood Mood: Neutral - Affect Affect: Blunted - Speech Speech: Appropriate - Formal Thought Process Formal Thought Process: No Impairment - Suicidal Ideation Suicidal Ideation: No - Homicidal Ideation Homicidal Ideation: No Goal/Treatment Plan - Goal/Treatment Plan Need for Continued Stay: Discharge may exacerbated symptoms Progress Toward Problem(s) and Goals/Treatment Plan: Alcohol use disorder, severe Support and psychoeducation given IL for abstinence and CBT for relapse prevention Attend groups and activities daily Alcohol withdrawal Support and psychoeducation given Continue Librium taper Continue other medications as prescribed Tobacco use disorder, moderate Support and psychoeducation given IL for abstinence and CBT for relapse prevention Attend groups and activities daily Nicoderm Cq 1 patch TD daily DOLORES Depressive disorder, unspecified Support and psychoeducation daily Attend groups and activities daily Continue medications as prescribed Estimated Date of D/C: 02/23/17 (Pt needs more time to stabilize)
[2017-02-22] MEDS: (Lantus) Insulin Glargine, Recombinant SC SCH (21:15)
[2017-02-23] MEDS: (Novolin R) Insulin Human Regular 100 units/ml vial SC SCH (09:04)
[2017-02-23] MEDS: (Novolog) Insulin Aspart, Recombinant 100 u/ml 10 ml vial SC SCH (09:05)
[2017-02-23 09:46] VITALS: BP 107/77; PULSE 100; RESP 20; TEMP 98.1; O2SAT 100
[2017-02-23] MEDS: Multiple Vitamins Tab PO SCH (09:55)
--- NOTE | 2017-02-23 10:33 | PCM.PYCHDC ---
Mental Status Examination - Mental Status Examination Orientation: Person, Place, Situation, Time Memory: Intact Mood: Neutral Affect: Constricted Speech: Appropriate Attention: WNL Concentration: WNL Association: WNL Fund of Knowledge: WNL Formal Thought Process: No Impairment Suicidal Ideation: No Current Homicidal Ideation?: No Discharge Summary - Discharge Note Reason for Hospitalization: Recent increase in use of alcohol and desire for detox Psychiatric History (includes Medical, Family, Personal Hx): Self-reported bulimia and depression Laboratory Data: Abnormal Lab Results 02/22/17 02/22/17 02/22/17 11:07 12:03 17:15 POC Glucose (mg/dL) 72 203 H 191 H 02/22/17 02/22/17 02/22/17 19:06 19:35 20:14 POC Glucose (mg/dL) 47 L 84 220 H 02/22/17 02/23/17 21:14 08:24 POC Glucose (mg/dL) 306 H 179 H Consultations:: List each consultation separately and include: 1. Reason for request. 2. Findings. 3. Follow-up Consultations: Medical consults for uncontrolled Type I DM and hypoglycemic episodes Summary of Hospital Course include:: 1. Description of specific treatment plan utilized for patients during their course of treatmen. 2. Summarize the time- course for resolution of acute symptoms and/or regressed behaviors. 3. Describe issues identified and worked on during hospitalization. 4. Describe medication utilized. 5. Describe medical problems identified and treated. 6. Reassessment of suicide risk Summary of Hospital Course: Pt was admitted and started on treatment with psychotherapy, support, psychoeducation and medications. AK and CBT used. Pt attended groups and activities as well as milieu therapy. All the risks and benefits of medications were discussed and pt understood and agreed. Today it was discovered that she has a history of bulimia and therefore discussed with her that we will replace her Lexapro with Prozac to provide some stabilization of her disordered eating and purging habits. She is also encouraged to bring this issue to her therapist's attention after discharge and she agrees. Pt improved with the treatment provided. She states that "At first I thought it was total bullshit but now I feel like it helped me." She has no complaints. After care discussed. Her cousin will pick her up and bring her to her mother's house. She will go to [facility]. - Final Diagnosis (DSM 5) Condition upon Discharge: STABLE DSM 5: Alcohol use disorder, severe Alcohol withdrawal Depressive disorder, unspecified Bulimia nervosa Disposition: HOME/ ROUTINE Follow-up Treatment Plan: Continue below medications after discharge. Follow after care as discussed. Use relapse prevention skills. Return to ER or call 911 if suicidal, homicidal or symptoms relapse. Stay away from stress, alcohol and drugs. See primary doctor once a year. Prescriptions/Medication Reconciliation: Ciprofloxacin [Cipro] 250 mg PO BID #8 tab FLUoxetine [Prozac] 10 mg PO DAILY #7 cap FLUoxetine [Prozac] 20 mg PO DAILY #30 cap traZODone [Desyrel] 100 mg PO HS PRN #30 tab PRN Reason: Insomnia - Smoking Cessation Smoking Cessation Medication prescribed: Yes - Antipsychotic Medications Pt discharged on 2 or more routine antipsychotic medications: No
--- NOTE | 2017-02-23 22:26 | CP.PCM.PN ---
<Guerrero Messer - Last Filed: 02/23/17 23:00> Subjective - Date & Time of Evaluation Date of Evaluation: 02/23/17 Time of Evaluation: 06:45 - Subjective Subjective: PGY1 Medicine Note for Dr. Saenz Patient seen and examined this morning at bedside. Patient states she is feeling well and is no longer experiencing vomiting. She states she has not complaints at this time. Denies f/c, n/c, d/c, sob, cp, numbness or tingling. Objective - Vital Signs/Intake and Output Vital Signs (last 24 hours): Temp Pulse Resp BP Pulse Ox 98.1 F 100 H 20 107/77 100 02/23/17 09:45 02/23/17 09:45 02/23/17 09:45 02/23/17 09:45 02/23/17 09:45 - Labs Labs: 02/20/17 08:11 02/21/17 07:25 - Constitutional Appears: Non-toxic, No Acute Distress - Head Exam Head Exam: ATRAUMATIC, NORMOCEPHALIC - Eye Exam Eye Exam: EOMI, Normal appearance - ENT Exam ENT Exam: Mucous Membranes Moist - Respiratory Exam Respiratory Exam: Clear to Ausculation Bilateral, NORMAL BREATHING PATTERN. absent: Accessory Muscle Use, Rales, Rhonchi, Wheezes, Respiratory Distress - Cardiovascular Exam Cardiovascular Exam: REGULAR RHYTHM, +S1, +S2 - GI/Abdominal Exam GI & Abdominal Exam: Soft, Normal Bowel Sounds. absent: Distended, Firm, Guarding, Rigid, Tenderness - Extremities Exam Extremities Exam: Normal Inspection. absent: Calf Tenderness, Pedal Edema - Neurological Exam Neurological Exam: Alert, Awake, Normal Gait, Oriented x3 - Psychiatric Exam Psychiatric exam: Normal Affect, Normal Mood - Skin Skin Exam: Dry, Intact, Normal Color, Warm Assessment and Plan - Assessment and Plan (Free Text) Assessment: Urinary tract infection Assessment and Plan: (+) UA, Hx of recurrent UTIs, Hx of right and left pyelonephritis; non- symptomatic discontinued Ciprofloxacin 250mg q12 po - never had any urinary symptoms, d/c abx after 3 days. Uncontrolled diabetes mellitus Assessment and Plan: Type 1 DM, non-compliant with meds; glucose 415 on admission Blood glucose range 72-306 Patient stated her insulin regiment 3 years ago was 3 units of novolog TIDAC and 10u of Lantus HS. Increased insulin regiment to 5 units of novolog TIDAC and 12u of Lantus HS. Regular insulin sliding scale - medium dose protocol d/c Metformin Accuchecks achs Diabetic Diet HgA1c 8.6 Lipid Panel: Trigly - 53, Chol - 58, LDL <30, HDL - 51 re-evaluate insulin regiment after full 24 hours - unable to speak to patient about adjusting insulin due to being discharged. Prophylactic measure Assessment and Plan: GI: pepcid 20mg po daily DVT: not indicated, ambulatory Diet: Diabetic DISPO: Patient was discharged and left hospital before she was able to be evaluated with Dr. Saenz. She did not receive any prescriptions from the medicine team due to this. Case discussed with Dr. Letty Messer PGY1 <Azam Saenz - Last Filed: 02/25/17 13:17> Objective - Vital Signs/Intake and Output Vital Signs (last 24 hours): Temp Pulse Resp BP Pulse Ox 98.1 F 100 H 20 107/77 100 02/23/17 09:45 02/23/17 09:45 02/23/17 09:45 02/23/17 09:45 02/23/17 09:45 - Labs Labs: 02/20/17 08:11 02/21/17 07:25 Attending/Attestation - Attestation I have personally seen and examined this patient.: Yes I have fully participated in the care of the patient.: Yes I have reviewed all pertinent clinical information, including history, physical exam and plan: Yes Notes (Text): Urinary tract infection Uncontrolled diabetes mellitus Discharged from psych prior to my eval.
== END 2017-02-23 11:15 | disposition home or self-care (01) | DRG 750 ==
LOC: C.ER 12:08 → C.7D 17:10
PROVIDERS: ADMIT Psychiatry & Neurology Psychiatry; ATTEND Psychiatry & Neurology Psychiatry
PROC: HZ2ZZZZ Detoxification Services for Substance Abuse Treatment (ICD-10-PCS; principal; 2017-02-20)
PROC: HZ42ZZZ Group Counseling for Substance Abuse Treatment, Cognitive-Behavioral (ICD-10-PCS; 2017-02-20)
PROC: HZ52ZZZ Individual Psychotherapy for Substance Abuse Treatment, Cognitive-Behavioral (ICD-10-PCS; 2017-02-20)
PROC: HZ59ZZZ Individual Psychotherapy for Substance Abuse Treatment, Supportive (ICD-10-PCS; 2017-02-20)
PROC: HZ56ZZZ Individual Psychotherapy for Substance Abuse Treatment, Psychoeducation (ICD-10-PCS; 2017-02-20)
PROC: HZ46ZZZ Group Counseling for Substance Abuse Treatment, Psychoeducation (ICD-10-PCS; 2017-02-20)
DX: F10.230 Alcohol dependence with withdrawal, uncomplicated (principal); N18.9 Chronic kidney disease, unspecified; F50.2 Bulimia nervosa; E10.65 Type 1 diabetes mellitus with hyperglycemia; N39.0 Urinary tract infection, site not specified; F32.9 Major depressive disorder, single episode, unspecified; F17.210 Nicotine dependence, cigarettes, uncomplicated; Y90.0 Blood alcohol level of less than 20 mg/100 ml; J45.909 Unspecified asthma, uncomplicated; Z91.14 Patient's other noncompliance with medication regimen; Z90.49 Acquired absence of other specified parts of digestive tract

== ENCOUNTER 2017-10-02 04:44 | Emergency (ER) | payer MEDICAID, OTHER ==
[2017-10-02 04:44] VITALS: BMI 28.3
[2017-10-02] MEDS ORDERED: Sodium Chloride 0.9% 1,000 ML IV ONE (05:28)
[2017-10-02] MEDS ORDERED: Sodium Chloride 0.9% 1,000 ML ONE (05:33)
[2017-10-02 05:34] LABS: BASO % 0.4 % (0.0-2.0); EOS % 0.2 % (0.0-4.0); HEMOGLOBIN 14.6 g/dL (11.0-16.0); LYMPH # 1.8 K/uL (1.0-4.3); LYMPH % 17.2 % (20.0-40.0); MEAN CELL VOLUME 92.9 fL (81.0-99.0); MEAN CORPUSCULAR HEMOGLOBIN 33.3 pg (27.0-31.0); MEAN CORPUSCULAR HGB CONC 35.8 g/dL (33.0-37.0); MEAN PLATELET VOLUME 7.6 fL (7.2-11.7); MONO # 0.6 K/uL (0.0-0.8); MONO % 5.7 % (0.0-10.0); NEUT % 76.5 % (50.0-75.0); RBC 4.39 Mil/uL (3.80-5.20); RED CELL DISTRIBUTION WIDTH 14.5 % (11.5-14.5); WHITE BLOOD COUNT 10.5 K/uL (4.8-10.8)
[2017-10-02 06:24] LABS: ALB/GLOB RATIO 1.4 (1.0-2.1); ALBUMIN 4.7 g/dL (3.5-5.0); ALT/SGPT 36 U/L (9-52); AST/SGOT 23 U/L (14-36); BLOOD UREA NITROGEN 11 mg/dL (7-17); CALCIUM 8.9 mg/dl (8.6-10.4); GFR AFRICAN-AMERICAN > 60; GFR NON-AFRICAN AMERICAN > 60; LIPASE 138 U/L (23-300)
[2017-10-02 06:43] LABS: HCG,QUALITATIVE URINE NEGATIVE (NEGATIVE)
[2017-10-02 06:47] LABS: SQUAMOUS EPITHIAL 3 /hpf (0-5); URINE BACTERIA RARE (<OCC); URINE BILIRUBIN NEGATIVE (NEGATIVE); URINE BLOOD NEGATIVE (NEGATIVE); URINE CLARITY Hazy (Clear); URINE COLOR Amber (YELLOW); URINE GLUCOSE (UA) 1+ mg/dL (Normal); URINE LEUKOCYTE ESTERASE TRACE Leu/uL (Negative); URINE PROTEIN 2+ mg/dL (NEGATIVE)
--- NOTE | 2017-10-02 07:34 | C.PDOC ---
History Of Present Illness 21yo female, presents to the emergency department with complaints of generalized abdominal pain, nausea and non-bloody/non-bilious vomiting and non- bloody/watery diarrhea x2 days. Patient reports sx started at onset of menses yesterday. Pt denies any fever, chills, back pain. Hx of asthma and Diabetes. Time Seen by Provider: 10/02/17 05:32 Chief Complaint (Nursing): GI Problem History Per: Patient History/Exam Limitations: no limitations Current Symptoms Are (Timing): Still Present Severity: Moderate Past Medical History Reviewed: Historical Data, Nursing Documentation, Vital Signs Vital Signs: Last Vital Signs Temp 98.2 F 10/02/17 08:03 Pulse 82 10/02/17 08:03 Resp 20 10/02/17 08:03 BP 130/80 10/02/17 08:03 Pulse Ox 98 10/02/17 19:53 - Medical History PMH: Asthma, Diabetes (type 1), Gall Bladder Disease (CHOLECYSTECTOMY), Kidney Stones, Chronic Kidney Disease Denies: Atrial Fibrillation, Cardia Arrhythmia, CHF, Hepatitis, HTN, Seizures , Sexually Transmitted Disease Surgical History: Cholecystectomy - [facility] DETOXIFICATION SERVICES FOR SUBSTANCE ABUSE TREATMENT (02/19/17) FLUOROSCOPY OF SUPERIOR VENA CAVA, GUIDANCE (05/11/16) GROUP ASSOCIATE MEDIA DIRECTOR FOR SUBSTANCE ABUSE TREATMENT, PSYCHOEDUCATION (02/19/17) GROUP ASSOCIATE MEDIA DIRECTOR FOR SUBSTANCE ABUSE, COGNITIVE BEHAVIORAL (02/19/17) INDIV PSYCHOTHERAPY FOR SUBSTANCE ABUSE TREATMENT, SUPPORT (02/19/17) INDIV PSYCHOTHERAPY FOR SUBSTANCE ABUSE, COGNITIV BEHAVIORAL (02/19/17) INDIV PSYCHOTHERAPY FOR SUBSTANCE ABUSE, PSYCHOEDUCATION (02/19/17) INFLUENZA VACCINATION (04/18/14) INJECT INSULIN (02/05/15) INJECT/INFUSE NEC (02/05/15) INSERTION OF INFUSION DEV INTO SUP VENA CAVA, PERC APPROACH (05/11/16) INTRODUCTION OF SERUM/TOX/VACCINE INTO MUSCLE, PERC APPROACH (04/11/16) RELEASE PERITONEUM, PERCUTANEOUS ENDOSCOPIC APPROACH (09/24/16) RESECTION OF GALLBLADDER, PERCUTANEOUS ENDOSCOPIC APPROACH (09/24/16) ROBOTIC ASSISTED PROCEDURE OF TRUNK, PERC ENDO APPROACH (09/24/16) ULTRASONOGRAPHY OF RIGHT UPPER EXTREMITY VEINS, GUIDANCE (05/11/16) Family History: States: No Known Family Hx - Social History Hx Tobacco Use: No Hx Alcohol Use: Yes Hx Substance Use: Yes (THC) - Immunization History Hx Tetanus Toxoid Vaccination: No Hx Influenza Vaccination: No Hx Pneumococcal Vaccination: No Review Of Systems Constitutional: Negative for: Fever Respiratory: Negative for: Shortness of Breath Gastrointestinal: Positive for: Nausea, Vomiting, Abdominal Pain Genitourinary: Negative for: Dysuria, Vaginal Discharge, Vaginal Bleeding Musculoskeletal: Negative for: Back Pain Neurological: Negative for: Weakness, Numbness, Headache, Dizziness Physical Exam - Physical Exam Appears: Non-toxic, No Acute Distress Skin: Normal Color, Warm, Dry, No Rash Head: Normacephalic Eye(s): bilateral: Normal Inspection, PERRL Nose: Normal Oral Mucosa: Moist Lips: Normal Appearing Neck: Normal ROM Cardiovascular: Rhythm Regular, No Murmur Respiratory: Normal Breath Sounds, No Accessory Muscle Use Gastrointestinal/Abdominal: Soft, Tenderness (diffuse), No Distention, No Guarding Neurological/Psych: Oriented x3, Normal Speech ED Course And Treatment - Laboratory Results Result Diagrams: 10/02/17 05:31 10/02/17 05:31 O2 Sat by Pulse Oximetry: 98 (RA) Pulse Ox Interpretation: Normal Progress Note: Bloodwork, UA, toradol, IVF and zofran ordered. Labs reviewed and d/w pt. Pt with improved pain, mild nausea. remained stable in NAD, will d/ c home with NSAIDS. Advised follow up with PMD or WINDOWS APPLICATION PACKAGER. Return precautions discussed Disposition Counseled Patient/Family Regarding: Diagnosis, Need For Followup, Rx Given - Disposition Referrals: William Villafuerte MD [Staff Provider] - Disposition: HOME/ ROUTINE Disposition Time: 07:31 Condition: STABLE Additional Instructions: Please follow with PMD Take meds as directed Increase PO fluids Return to ER if worse Prescriptions: Naproxen [Naprosyn] 1 tab PO BID PRN #25 tab PRN Reason: Pain Ondansetron [Zofran Odt] 4 mg PO TID #10 odt Instructions: Menstrual Cramps (DC) Forms: [facility] (Sinhala) - Clinical Impression Clinical Impression: Dysmenorrhea - Scribe Statement The provider has reviewed the documentation as recorded by the Scribe (Cristopher Chua) All medical record entries made by the Scribe were at my direction and personally dictated by me. I have reviewed the chart and agree that the record accurately reflects my personal performance of the history, physical exam, medical decision making, and the department course for this patient. I have also personally directed, reviewed, and agree with the discharge instructions and disposition.
[2017-10-02 08:04] VITALS: BP 130/80; PULSE 82; RESP 20; TEMP 98.2
[2017-10-02 19:48] VITALS: O2SAT 98
== END 2017-10-02 08:34 | disposition home or self-care (01) ==
LOC: C.ER 04:44
DX: N94.6 Dysmenorrhea, unspecified (principal)
CPT/HCPCS: 80053; 81001; 82009; 83690; 84703; 85025; 96361; 96374; 96375; 99285; J1885; J2405; J7040

== ENCOUNTER 2018-03-17 13:48 | Emergency (ER) | payer OTHER ==
[2018-03-17 13:48] VITALS: BMI 28.3
[2018-03-17 13:57] VITALS: RESP 18; TEMP 97.8; O2SAT 100
[2018-03-17] MEDS ORDERED: Clindamycin 600mg/50ml NS 600 MG/50 ML BAG IVPB ONE (14:56)
--- NOTE | 2018-03-17 15:01 | C.PDOC ---
History Of Present Illness 22 y/o female, with PMH DM, Asthma presents to ED for cough and sore throat x2 days. States cough is dry and sore throat worsens with swallowing. Patient also complains of sinus congestion. States she had a fever of 100.2 yesterday, took Tylenol and has had no fever since. Patient had no known sick contacts and is here for cough medicine and a work note. Denies flu shot. Denies headache, ear pain, SOB, sputum, chest pain, palpitations, dizziness, abdominal pain, N/V, diarrhea, rash, calf swelling, calf pain, hemoptysis, or neck pain. Chief Complaint (Nursing): Cough, Cold, Congestion History Per: Patient History/Exam Limitations: no limitations Onset/Duration Of Symptoms: Days Current Symptoms Are (Timing): Still Present Past Medical History Reviewed: Historical Data, Nursing Documentation, Vital Signs Vital Signs: Last Vital Signs Temp 97.8 F 03/17/18 13:55 Pulse 105 H 03/17/18 13:55 Resp 18 03/17/18 13:55 BP 145/91 H 03/17/18 13:55 Pulse Ox 100 03/17/18 13:55 - Medical History PMH: Asthma, Diabetes (type 1), Gall Bladder Disease (CHOLECYSTECTOMY), Kidney Stones, Chronic Kidney Disease Denies: Atrial Fibrillation, Cardia Arrhythmia, CHF, Hepatitis, HTN, Seizures, Sexually Transmitted Disease Surgical History: Cholecystectomy - [facility] Procedures DETOXIFICATION SERVICES FOR SUBSTANCE ABUSE TREATMENT (02/19/17) FLUOROSCOPY OF SUPERIOR VENA CAVA, GUIDANCE (05/11/16) GROUP PICK AND SHOVEL WORKER FOR SUBSTANCE ABUSE TREATMENT, PSYCHOEDUCATION (02/19/17) GROUP PICK AND SHOVEL WORKER FOR SUBSTANCE ABUSE, COGNITIVE BEHAVIORAL (02/19/17) INDIV PSYCHOTHERAPY FOR SUBSTANCE ABUSE TREATMENT, SUPPORT (02/19/17) INDIV PSYCHOTHERAPY FOR SUBSTANCE ABUSE, COGNITIV BEHAVIORAL (02/19/17) INDIV PSYCHOTHERAPY FOR SUBSTANCE ABUSE, PSYCHOEDUCATION (02/19/17) INFLUENZA VACCINATION (04/18/14) INJECT INSULIN (02/05/15) INJECT/INFUSE NEC (02/05/15) INSERTION OF INFUSION DEV INTO SUP VENA CAVA, PERC APPROACH (05/11/16) INTRODUCTION OF SERUM/TOX/VACCINE INTO MUSCLE, PERC APPROACH (04/11/16) RELEASE PERITONEUM, PERCUTANEOUS ENDOSCOPIC APPROACH (09/24/16) RESECTION OF GALLBLADDER, PERCUTANEOUS ENDOSCOPIC APPROACH (09/24/16) ROBOTIC ASSISTED PROCEDURE OF TRUNK, PERC ENDO APPROACH (09/24/16) ULTRASONOGRAPHY OF RIGHT UPPER EXTREMITY VEINS, GUIDANCE (05/11/16) Family History: States: No Known Family Hx - Social History Hx Tobacco Use: No Hx Alcohol Use: Yes Hx Substance Use: Yes (THC) - Immunization History Hx Tetanus Toxoid Vaccination: No Hx Influenza Vaccination: No Hx Pneumococcal Vaccination: No Review Of Systems Except As Marked, All Systems Reviewed And Found Negative. Constitutional: Positive for: Fever. Negative for: Chills Eyes: Negative for: Pain, Vision Change ENT: Positive for: Nose Congestion, Throat Pain. Negative for: Ear Pain, Throat Swelling Cardiovascular: Negative for: Chest Pain, Palpitations, Light Headedness Respiratory: Positive for: Cough. Negative for: Shortness of Breath, Sputum Gastrointestinal: Negative for: Nausea, Vomiting, Abdominal Pain, Diarrhea Musculoskeletal: Negative for: Neck Pain Skin: Negative for: Rash Neurological: Negative for: Weakness, Numbness, Confusion, Altered Mental Status, Headache, Dizziness Physical Exam - Physical Exam Appears: Well, Non-toxic, No Acute Distress Skin: Normal Color, Warm, Dry, No Diaphoretic, No Pale, No Rash Head: Atraumatic, Normacephalic Eye(s): bilateral: Normal Inspection, PERRL, EOMI Ear(s): Bilateral: Other (Fluid behind both TM but no redness or bulging) Nose: Normal, No Flaring, No Epistaxis Oral Mucosa: Moist Tongue: Normal Appearing Lips: Normal Appearing Throat: Erythema (mild), No Exudate, No Drooling, No Mass, Other (No tonsillar swelling) Neck: Normal ROM, No Decreased ROM, No Midline Cervical Tenderness, No Paracervical Tenderness, Other (No meningeal signs) Lymphatic: Normal Exam, No Adenopathy Cardiovascular: Rhythm Regular, No Murmur Respiratory: Normal Breath Sounds, No Rales, No Rhonchi, No Wheezing Back: Normal Inspection, No Decreased ROM, No Paraspinal Tenderness Extremity: Normal ROM, No Tenderness, Capillary Refill (<2s), No Deformity, No Swelling Extremity: Bilateral: Atraumatic, No Pedal Edema, Normal Color And Temperature, Normal ROM Pulses: Left Radial: Normal, Right Radial: Normal Neurological/Psych: Oriented x3, Normal Speech, Normal Cognition, Normal Cranial Nerves, Normal Motor, Normal Sensation, Other (No focal deficits) Gait: Steady ED Course And Treatment O2 Sat by Pulse Oximetry: 100 (RA) Pulse Ox Interpretation: Normal Medical Decision Making Medical Decision Making: Initial Plan: Rapid strep Patient demanding to leave ED with work note, told she has to wait for results of rapid strep. Rapid strep: negative lab results discussed with patient. Discussed importance of appropriate followup and educated on signs to return. Instructed pt to use albuterol inhaler every 6 hours for cough. Pt understands and agrees with plan of care. Pt comfortable with, and stable for discharge home. Impression Viral URI Plan Increase fluids Ibuprofen/Tylenol for fever Followup with PMD within 2 days for BP check Return to ED if symptoms persist or worsen Disposition Counseled Patient/Family Regarding: Studies Performed, Diagnosis, Need For Foll owup, Rx Given - Disposition Disposition: HOME/ ROUTINE Disposition Time: 15:00 Condition: STABLE Additional Instructions: Increase fluids Ibuprofen/Tylenol for fever Followup with PMD within 2 days for BP check Return to ED if symptoms persist or worsen Prescriptions: Benzonatate [Tessalon Perle] 100 mg PO Q8H PRN #21 capsule PRN Reason: Cough Fluticasone Nasal [Flonase] 2 spray NS DAILY #120 spr Instructions: Viral Upper Respiratory Infection, Adult (DC), Upper Respiratory Infection (ED) Forms: [facility] (Kyrgyz), Work Excuse - Clinical Impression Clinical Impression: Viral upper respiratory infection - PA / TURNTABLE WORKER / Resident Statement MD/DO has reviewed & agrees with the documentation as recorded. - Scribe Statement The provider has reviewed the documentation as recorded by the Waleskaibdylan Marina All medical record entries made by the Waleskaibdylan were at my direction and personally dictated by me. I have reviewed the chart and agree that the record accurately reflects my personal performance of the history, physical exam, medical decision making, and the department course for this patient. I have also personally directed, reviewed, and agree with the discharge instructions and disposition.
--- NOTE | 2018-03-17 15:04 | C.PDOC ---
Chief Complaint (Nursing): Cough, Cold, Congestion Past Medical History Vital Signs: Last Vital Signs Temp 97.8 F 03/17/18 13:55 Pulse 105 H 03/17/18 13:55 Resp 18 03/17/18 13:55 BP 145/91 H 03/17/18 13:55 Pulse Ox 100 03/17/18 13:55 - Medical History PMH: Asthma, Diabetes (type 1), Gall Bladder Disease (CHOLECYSTECTOMY), Kidney Stones, Chronic Kidney Disease Denies: Atrial Fibrillation, Cardia Arrhythmia, CHF, Hepatitis, HTN, Seizures, Sexually Transmitted Disease Surgical History: Cholecystectomy - [facility] Procedures DETOXIFICATION SERVICES FOR SUBSTANCE ABUSE TREATMENT (02/19/17) FLUOROSCOPY OF SUPERIOR VENA CAVA, GUIDANCE (05/11/16) GROUP ENTRY LEVEL RECRUITER FOR SUBSTANCE ABUSE TREATMENT, PSYCHOEDUCATION (02/19/17) GROUP ENTRY LEVEL RECRUITER FOR SUBSTANCE ABUSE, COGNITIVE BEHAVIORAL (02/19/17) INDIV PSYCHOTHERAPY FOR SUBSTANCE ABUSE TREATMENT, SUPPORT (02/19/17) INDIV PSYCHOTHERAPY FOR SUBSTANCE ABUSE, COGNITIV BEHAVIORAL (02/19/17) INDIV PSYCHOTHERAPY FOR SUBSTANCE ABUSE, PSYCHOEDUCATION (02/19/17) INFLUENZA VACCINATION (04/18/14) INJECT INSULIN (02/05/15) INJECT/INFUSE NEC (02/05/15) INSERTION OF INFUSION DEV INTO SUP VENA CAVA, PERC APPROACH (05/11/16) INTRODUCTION OF SERUM/TOX/VACCINE INTO MUSCLE, PERC APPROACH (04/11/16) RELEASE PERITONEUM, PERCUTANEOUS ENDOSCOPIC APPROACH (09/24/16) RESECTION OF GALLBLADDER, PERCUTANEOUS ENDOSCOPIC APPROACH (09/24/16) ROBOTIC ASSISTED PROCEDURE OF TRUNK, PERC ENDO APPROACH (09/24/16) ULTRASONOGRAPHY OF RIGHT UPPER EXTREMITY VEINS, GUIDANCE (05/11/16) Family History: States: Unknown Family Hx - Social History Hx Tobacco Use: No Hx Alcohol Use: Yes Hx Substance Use: Yes (THC) - Immunization History Hx Tetanus Toxoid Vaccination: No Hx Influenza Vaccination: No Hx Pneumococcal Vaccination: No ED Course And Treatment O2 Sat by Pulse Oximetry: 100 Disposition - Disposition Disposition: HOME/ ROUTINE Disposition Time: 15:01 Condition: STABLE Additional Instructions: Increase fluids Ibuprofen/Tylenol for fever Followup with PMD within 2 days Return to ED if symptoms persist or worsen Prescriptions: Benzonatate [Tessalon Perle] 100 mg PO Q8H PRN #21 capsule PRN Reason: Cough Fluticasone Nasal [Flonase] 2 spray NS DAILY #120 spr Instructions: Upper Respiratory Infection (ED) Forms: [facility] (Romanian), Work Excuse - Clinical Impression Clinical Impression: Viral upper respiratory infection
[2018-03-17 15:31] VITALS: BP 134/86; PULSE 96
== END 2018-03-17 16:19 | disposition home or self-care (01) ==
LOC: C.ER 13:48
DX: J06.9 Acute upper respiratory infection, unspecified (principal); F17.210 Nicotine dependence, cigarettes, uncomplicated

== ENCOUNTER 2018-03-19 16:11 | Emergency (ER) | payer MEDICAID ==
[2018-03-19 16:11] VITALS: BMI 28.3
[2018-03-19] MEDS ORDERED: Sodium Chloride 0.9% 1,000 ML IV ONE (17:04)
[2018-03-19 17:23] LABS: BASO # 0.1 K/uL (0.0-0.2); BASO % 0.5 % (0.0-2.0); HEMOGLOBIN 14.1 g/dL (11.0-16.0); LYMPH # 1.4 K/uL (1.0-4.3); LYMPH % 9.4 % (20.0-40.0); MEAN CORPUSCULAR HEMOGLOBIN 33.7 pg (27.0-31.0); MEAN CORPUSCULAR HGB CONC 35.4 g/dL (33.0-37.0); MEAN PLATELET VOLUME 7.9 fL (7.2-11.7); MONO % 6.7 % (0.0-10.0); NEUT # 12.3 K/uL (1.8-7.0); NEUT % 83.4 % (50.0-75.0); RBC 4.19 Mil/uL (3.80-5.20); RED CELL DISTRIBUTION WIDTH 13.8 % (11.5-14.5); WHITE BLOOD COUNT 14.8 K/uL (4.8-10.8)
[2018-03-19] MEDS ORDERED: Sodium Chloride 0.9% 1,000 ML ONE (17:24)
[2018-03-19 17:27] LABS: MEAN CELL VOLUME 95.1 fL (81.0-99.0); PLATELET COUNT 255 K/uL (130-400)
[2018-03-19 17:43] LABS: ALB/GLOB RATIO 1.4 (1.0-2.1); ALBUMIN 4.5 g/dL (3.5-5.0); ALT/SGPT 31 U/L (9-52); AST/SGOT 30 U/L (14-36); BLOOD UREA NITROGEN 12 mg/dL (7-17); GFR NON-AFRICAN AMERICAN > 60; LIPASE 47 U/L (23-300)
--- NOTE | 2018-03-19 17:48 | C.PDOC ---
History Of Present Illness 22 y/o female with PMHx of DM and asthma, presenting with complaints of abdominal pain associated with nausea, vomiting, fever, for the last 2 days. Denies change in blood sugar. States she is compliant with all chronic medications. Patient notes she has had similar episodes in the past, was evaluated in the ED, and no cause was identified. Otherwise she denies any chest pain, sob, diarrhea, dysuria, urinary frequency, or other associated symptoms. <Carolina Lyn - Last Filed: 03/19/18 18:50> History Per: Patient History/Exam Limitations: no limitations Onset/Duration Of Symptoms: Days Current Symptoms Are (Timing): Still Present <Carolina Lyn - Last Filed: 03/19/18 18:50> <Letitia Alba - Last Filed: 03/19/18 21:36> Time Seen by Provider: 03/19/18 16:51 Chief Complaint (Nursing): Abdominal Pain Past Medical History Reviewed: Historical Data, Nursing Documentation, Vital Signs Vital Signs: Last Vital Signs Temp 99.1 F 03/19/18 16:38 Pulse 110 H 03/19/18 16:38 Resp 20 03/19/18 16:38 BP 147/94 H 03/19/18 16:38 Pulse Ox 98 03/19/18 16:38 - Medical History PMH: Asthma, Diabetes (type 1), Gall Bladder Disease (CHOLECYSTECTOMY), Kidney Stones, Chronic Kidney Disease Denies: Atrial Fibrillation, Cardia Arrhythmia, CHF, Hepatitis, HTN, Seizures, Sexually Transmitted Disease Surgical History: Cholecystectomy - [facility] Procedures DETOXIFICATION SERVICES FOR SUBSTANCE ABUSE TREATMENT (02/19/17) FLUOROSCOPY OF SUPERIOR VENA CAVA, GUIDANCE (05/11/16) GROUP AD OPERATIONS INTERN FOR SUBSTANCE ABUSE TREATMENT, PSYCHOEDUCATION (02/19/17) GROUP AD OPERATIONS INTERN FOR SUBSTANCE ABUSE, COGNITIVE BEHAVIORAL (02/19/17) INDIV PSYCHOTHERAPY FOR SUBSTANCE ABUSE TREATMENT, SUPPORT (02/19/17) INDIV PSYCHOTHERAPY FOR SUBSTANCE ABUSE, COGNITIV BEHAVIORAL (02/19/17) INDIV PSYCHOTHERAPY FOR SUBSTANCE ABUSE, PSYCHOEDUCATION (02/19/17) INFLUENZA VACCINATION (04/18/14) INJECT INSULIN (02/05/15) INJECT/INFUSE NEC (02/05/15) INSERTION OF INFUSION DEV INTO SUP VENA CAVA, PERC APPROACH (05/11/16) INTRODUCTION OF SERUM/TOX/VACCINE INTO MUSCLE, PERC APPROACH (04/11/16) RELEASE PERITONEUM, PERCUTANEOUS ENDOSCOPIC APPROACH (09/24/16) RESECTION OF GALLBLADDER, PERCUTANEOUS ENDOSCOPIC APPROACH (09/24/16) ROBOTIC ASSISTED PROCEDURE OF TRUNK, PERC ENDO APPROACH (09/24/16) ULTRASONOGRAPHY OF RIGHT UPPER EXTREMITY VEINS, GUIDANCE (05/11/16) Family History: States: No Known Family Hx - Social History Hx Tobacco Use: No Hx Alcohol Use: Yes Hx Substance Use: No - Immunization History Hx Tetanus Toxoid Vaccination: No Hx Influenza Vaccination: No Hx Pneumococcal Vaccination: No <Carolina Lyn - Last Filed: 03/19/18 18:50> Vital Signs: Last Vital Signs Temp 99.1 F 03/19/18 16:38 Pulse 110 H 03/19/18 16:38 Resp 20 03/19/18 16:38 BP 147/94 H 03/19/18 16:38 Pulse Ox 98 03/19/18 18:52 - [facility] Procedures DETOXIFICATION SERVICES FOR SUBSTANCE ABUSE TREATMENT (02/19/17) FLUOROSCOPY OF SUPERIOR VENA CAVA, GUIDANCE (05/11/16) GROUP AD OPERATIONS INTERN FOR SUBSTANCE ABUSE TREATMENT, PSYCHOEDUCATION (02/19/17) GROUP AD OPERATIONS INTERN FOR SUBSTANCE ABUSE, COGNITIVE BEHAVIORAL (02/19/17) INDIV PSYCHOTHERAPY FOR SUBSTANCE ABUSE TREATMENT, SUPPORT (02/19/17) INDIV PSYCHOTHERAPY FOR SUBSTANCE ABUSE, COGNITIV BEHAVIORAL (02/19/17) INDIV PSYCHOTHERAPY FOR SUBSTANCE ABUSE, PSYCHOEDUCATION (02/19/17) INFLUENZA VACCINATION (04/18/14) INJECT INSULIN (02/05/15) INJECT/INFUSE NEC (02/05/15) INSERTION OF INFUSION DEV INTO SUP VENA CAVA, PERC APPROACH (05/11/16) INTRODUCTION OF SERUM/TOX/VACCINE INTO MUSCLE, PERC APPROACH (04/11/16) RELEASE PERITONEUM, PERCUTANEOUS ENDOSCOPIC APPROACH (09/24/16) RESECTION OF GALLBLADDER, PERCUTANEOUS ENDOSCOPIC APPROACH (09/24/16) ROBOTIC ASSISTED PROCEDURE OF TRUNK, PERC ENDO APPROACH (09/24/16) ULTRASONOGRAPHY OF RIGHT UPPER EXTREMITY VEINS, GUIDANCE (05/11/16) <Letitia Alba - Last Filed: 03/19/18 21:36> Review Of Systems Except As Marked, All Systems Reviewed And Found Negative. Constitutional: Positive for: Fever (subjective) Respiratory: Negative for: Shortness of Breath Gastrointestinal: Positive for: Nausea, Vomiting, Abdominal Pain. Negative for: Diarrhea, Constipation Genitourinary: Negative for: Dysuria, Frequency, Hematuria Neurological: Negative for: Weakness, Dizziness <Carolina Lyn - Last Filed: 03/19/18 18:50> Physical Exam - Physical Exam Appears: Non-toxic, No Acute Distress Skin: Normal Color, Warm, Dry Head: Atraumatic, Normacephalic Eye(s): bilateral: Normal Inspection, EOMI Nose: Normal Oral Mucosa: Moist Neck: Normal ROM, Supple Chest: Symmetrical Cardiovascular: Rhythm Regular Respiratory: Normal Breath Sounds, No Rales, No Rhonchi, No Wheezing Gastrointestinal/Abdominal: Soft, Tenderness (Diffuse abdominal tenderness), No Distention, No Guarding, No Rebound Back: No CVA Tenderness, No Vertebral Tenderness Extremity: Normal ROM Extremity: Bilateral: Atraumatic, Normal Color And Temperature, Normal ROM Neurological/Psych: Oriented x3, Normal Speech, Other (No focal deficits) <Carolina Lyn - Last Filed: 03/19/18 18:50> ED Course And Treatment - Laboratory Results Result Diagrams: 03/19/18 17:19 03/19/18 17:19 O2 Sat by Pulse Oximetry: 98 (RA) Pulse Ox Interpretation: Normal Progress Note: Blood work and urine sent to lab for analysis. Patient treated with IV fluids, 30mg Toradol, and 4mg Zofran IVP. Awaiting CT of the abdomen/pelvis without contrast. Case discussed with Dr Alba pending CT and re-evaluation. <Carolina Lyn - Last Filed: 03/19/18 18:50> - Laboratory Results Result Diagrams: 03/19/18 17:19 03/19/18 17:19 Pulse Ox Interpretation: Normal Reevaluation Time: 21:36 Reassessment Condition: Improved <Letitia Alba - Last Filed: 03/19/18 21:36> Disposition - Disposition Disposition Time: 18:51 <Carolina Lyn - Last Filed: 03/19/18 18:50> Counseled Patient/Family Regarding: Studies Performed, Diagnosis, Need For Followup, Rx Given <Letitia Alba - Last Filed: 03/19/18 21:36> - Disposition Referrals: Wesley Martinez MD [Staff Provider] - Disposition: HOME/ ROUTINE Condition: STABLE Additional Instructions: Please return if symptoms recur Prescriptions: Metoclopramide [Reglan] 1 tab PO TID PRN #25 tab PRN Reason: Nausea/Vomiting Metronidazole [Flagyl] 500 mg PO TID #21 tablet Instructions: Acute Abdomen (Belly Pain), Adult (DC), Gastroparesis (Delayed Gastric Emptying) (DC) Forms: [facility] (Mohawk), Work Excuse - Clinical Impression Clinical Impression: Abdominal pain, Gastroparesis - PA / BELLSTAND ATTENDANT / Resident Statement MD/DO has reviewed & agrees with the documentation as recorded. - Scribe Statement The provider has reviewed the documentation as recorded by the Scribe (Aleida Lemus) All medical record entries made by the Scribe were at my direction and personally dictated by me. I have reviewed the chart and agree that the record a ccurately reflects my personal performance of the history, physical exam, medical decision making, and the department course for this patient. I have also personally directed, reviewed, and agree with the discharge instructions and disposition. <Carolina Lyn - Last Filed: 03/19/18 18:50> Decision To Admit <Carolina Lyn - Last Filed: 03/19/18 18:50> <Letitia Alba - Last Filed: 03/19/18 21:36> - . Patient Diagnosis: Abdominal pain
[2018-03-19 17:50] LABS: SQUAMOUS EPITHIAL 6 /hpf (0-5); URINE BILIRUBIN NEGATIVE (NEGATIVE); URINE BLOOD NEGATIVE (NEGATIVE); URINE CLARITY Hazy (Clear); URINE COLOR Yellow (YELLOW); URINE GLUCOSE (UA) NORMAL (Normal); URINE LEUKOCYTE ESTERASE NEG Leu/uL (Negative); URINE PROTEIN 3+ mg/dL (NEGATIVE); URINE UROBILINOGEN NORMAL mg/dL (0.2-1.0)
[2018-03-19 17:55] LABS: HCG,QUALITATIVE URINE NEGATIVE (NEGATIVE)
[2018-03-19 18:12] LABS: BANDS 1 % (0-2); LYMPHOCYTE 5 % (20-40); MONOCYTE 4 % (0-10); NEUTROPHIL 90 % (50-75); PLATELET ESTIMATE NORMAL (NORMAL); TOTAL CELLS COUNTED 100
[2018-03-19] MEDS ORDERED: Piperacillin/Tazobact 3.375 gm 100 ML IVPB STA (20:08)
[2018-03-19] MEDS ORDERED: Morphine 4 MG/ML VIAL IV ONE (20:17)
[2018-03-19] MEDS ORDERED: Piperacillin/Tazobact 3.375 gm 100 ML IVPB ONE (20:34)
[2018-03-19 21:44] VITALS: BP 118/79; PULSE 75; RESP 18; TEMP 98.2; O2SAT 99
--- NOTE | 2018-03-20 09:27 | CT ---
Date of service: 03/19/2018 PROCEDURE: CT Abdomen and Pelvis without intravenous contrast HISTORY: Vomiting and lower back pain COMPARISON: 12/11/2016 TECHNIQUE: CT scan of the abdomen and pelvis was performed without administration of intravenous contrast. Oral contrast was not administered. Coronal and sagittal reformatted images were obtained. . Radiation dose: Total exam DLP = 1075.28 mGy-cm. This CT exam was performed using one or more of the following dose reduction techniques: Automated exposure control, adjustment of the mA and/or kV according to patient size, and/or use of iterative reconstruction technique. FINDINGS: LOWER THORAX: The visualized lungs are clear. LIVER: Mild hepatomegaly and fatty liver. No intrahepatic ductal dilatation. GALLBLADDER AND BILE DUCTS: Not visualized and may be surgically absent. PANCREAS: Normal in size. No ductal dilatation. SPLEEN: Borderline splenomegaly. ADRENALS: Normal in size. No discrete nodule. KIDNEYS AND URETERS: Normal in size. There are punctate nonobstructing stones in the kidneys no hydronephrosis. VASCULATURE: No aortic aneurysm. No aortic atherosclerotic calcification or mural plaque present. BOWEL: There are fluid filled normal caliber small bowel loops. The colon is normal in size. No bowel dilatation or wall thickening. No bowel obstruction. APPENDIX: Normal appendix. PERITONEUM: No free fluid. No free air. LYMPH NODES: No enlarged lymph nodes. BLADDER: Well distended and grossly normal in appearance. REPRODUCTIVE: The uterus is normal in size BONES: No acute fracture. OTHER FINDINGS: None. IMPRESSION: Punctate nonobstructing stones in the kidneys. No hydronephrosis or obstructive uropathy. Mild hepatosplenomegaly and fatty liver. No acute abnormality. A preliminary report was provided by [facility].
== END 2018-03-19 21:44 | disposition home or self-care (01) ==
LOC: C.ER 16:11
DX: E10.43 Type 1 diabetes mellitus with diabetic autonomic (poly)neuropathy (principal); K31.84 Gastroparesis; R10.9 Unspecified abdominal pain; E10.22 Type 1 diabetes mellitus with diabetic chronic kidney disease; N18.9 Chronic kidney disease, unspecified; Z90.49 Acquired absence of other specified parts of digestive tract
CPT/HCPCS: 74176; 80053; 81001; 82948; 83690; 84703; 85025; 96361; 96365; 96375; 99284; J1885; J2270; J2405; J2543; J2765; J7030

== ENCOUNTER 2018-05-11 01:35 | Emergency (ER) | payer MEDICAID, OTHER ==
[2018-05-11 01:35] VITALS: BMI 28.3
[2018-05-11 01:42] VITALS: TEMP 98.2; O2SAT 97
[2018-05-11] MEDS ORDERED: Sodium Chloride 0.9% 1,000 ML IV ONE ×3 (02:04→03:53)
--- NOTE | 2018-05-11 02:22 | C.PDOC ---
History Of Present Illness 22 year old female who is an insulin dependent diabetic presents to the ER with a complaint of generalized abdominal pain associated with vomiting, diarrhea, and right flank pain that began tonight. Denies fever or chills. Time Seen by Provider: 05/11/18 01:47 Chief Complaint (Nursing): Abdominal Pain History Per: Patient History/Exam Limitations: no limitations Onset/Duration Of Symptoms: Hrs Current Symptoms Are (Timing): Still Present Location Of Pain/Discomfort: Diffuse, Other (Right flank) Quality Of Discomfort: Unable To Describe Associated Symptoms: Nausea, Vomiting, Diarrhea. denies: Fever, Chills Exacerbating Factors: None Alleviating Factors: None Recent travel outside of the [place]: No Past Medical History Reviewed: Historical Data, Nursing Documentation, Vital Signs Vital Signs: Last Vital Signs Temp 98.2 F 05/11/18 01:40 Pulse 110 H 05/11/18 01:40 Resp 16 05/11/18 01:40 BP 171/92 H 05/11/18 01:40 Pulse Ox 97 05/11/18 01:40 - Medical History PMH: Asthma, Diabetes (type 1), Gall Bladder Disease (CHOLECYSTECTOMY), Kidney Stones, Chronic Kidney Disease Denies: Atrial Fibrillation, Cardia Arrhythmia, CHF, Hepatitis, HTN, Seizures, Sexually Transmitted Disease Surgical History: Cholecystectomy - [facility] Procedures DETOXIFICATION SERVICES FOR SUBSTANCE ABUSE TREATMENT (02/19/17) FLUOROSCOPY OF SUPERIOR VENA CAVA, GUIDANCE (05/11/16) GROUP RESERVATION SALES AGENT FOR SUBSTANCE ABUSE TREATMENT, PSYCHOEDUCATION (02/19/17) GROUP RESERVATION SALES AGENT FOR SUBSTANCE ABUSE, COGNITIVE BEHAVIORAL (02/19/17) INDIV PSYCHOTHERAPY FOR SUBSTANCE ABUSE TREATMENT, SUPPORT (02/19/17) INDIV PSYCHOTHERAPY FOR SUBSTANCE ABUSE, COGNITIV BEHAVIORAL (02/19/17) INDIV PSYCHOTHERAPY FOR SUBSTANCE ABUSE, PSYCHOEDUCATION (02/19/17) INFLUENZA VACCINATION (04/18/14) INJECT INSULIN (02/05/15) INJECT/INFUSE NEC (02/05/15) INSERTION OF INFUSION DEV INTO SUP VENA CAVA, PERC APPROACH (05/11/16) INTRODUCTION OF SERUM/TOX/VACCINE INTO MUSCLE, PERC APPROACH (04/11/16) RELEASE PERITONEUM, PERCUTANEOUS ENDOSCOPIC APPROACH (09/24/16) RESECTION OF GALLBLADDER, PERCUTANEOUS ENDOSCOPIC APPROACH (09/24/16) ROBOTIC ASSISTED PROCEDURE OF TRUNK, PERC ENDO APPROACH (09/24/16) ULTRASONOGRAPHY OF RIGHT UPPER EXTREMITY VEINS, GUIDANCE (05/11/16) Family History: States: Unknown Family Hx - Social History Hx Tobacco Use: No Hx Alcohol Use: Yes Hx Substance Use: No - Immunization History Hx Tetanus Toxoid Vaccination: No Hx Influenza Vaccination: No Hx Pneumococcal Vaccination: No Review Of Systems Constitutional: Negative for: Fever, Chills Cardiovascular: Negative for: Chest Pain, Palpitations Respiratory: Negative for: Cough, Shortness of Breath Gastrointestinal: Positive for: Vomiting, Abdominal Pain, Diarrhea Musculoskeletal: Positive for: Other (Right flank pain) Neurological: Negative for: Weakness, Numbness Physical Exam - Physical Exam Appears: Non-toxic, Other (Uncomfortable) Skin: Normal Color, Warm, Dry Head: Atraumatic, Normacephalic Eye(s): bilateral: Normal Inspection Oral Mucosa: Moist Neck: Normal, Supple Chest: Symmetrical, No Tenderness Cardiovascular: Rhythm Regular (Tachycardic) Respiratory: Normal Breath Sounds, No Rales, No Rhonchi, No Wheezing Gastrointestinal/Abdominal: Soft, Tenderness (Diffuse), No Guarding, No Rebound Back: No CVA Tenderness Neurological/Psych: Oriented x3, Normal Speech ED Course And Treatment - Laboratory Results Result Diagrams: 05/11/18 02:29 05/11/18 02:29 O2 Sat by Pulse Oximetry: 97 (Room air) Pulse Ox Interpretation: Normal Medical Decision Making Medical Decision Making: Impression: vomiting and diarrhea Plan: * Blood work * Urinalysis * IV fluids * Reglan * Toradol Progress: Labs reviewed with electrolyte changes and hyperglycemia from DM. Urine shows ketones. Ordered VBG no acidosis or elevated lactate. 0350 Patient re-evaluated and reports feeling little better. Discussed lab results and plan for discharge or obs admission. Patient does not wish to be admitted at this time. She asks for more fluids and some more pain medicine. Disposition Counseled Patient/Family Regarding: Diagnosis, Need For Followup, Rx Given - Disposition Referrals: Wesley Martinez MD [Staff Provider] - Disposition: HOME/ ROUTINE Disposition Time: 05:30 Condition: IMPROVED Additional Instructions: Follow up with your primary medical doctor or clinic in 2-5 days for further evaluation. Take medications as prescribed. Return to the emergency department at any time if symptoms persist or worsen. Prescriptions: Ondansetron ODT [Zofran ODT] 1 odt PO BID PRN #6 odt PRN Reason: Nausea/Vomiting Pantoprazole Sodium [Protonix] 20 mg PO DAILY #20 ect Instructions: Gastroenteritis (DC) Forms: [facility] (Swazi) - POA Present On Arrival: None - Clinical Impression Clinical Impression: Gastroenteritis - PA / PIPE STEM ALIGNER / Resident Statement MD/DO has reviewed & agrees with the documentation as recorded. - Scribe Statement The provider has reviewed the documentation as recorded by the Scribdylan Hess All medical record entries made by the Waleskaibdylan were at my direction and personally dictated by me. I have reviewed the chart and agree that the record accurately reflects my personal performance of the history, physical exam, medical decision making, and the department course for this patient. I have also personally directed, reviewed, and agree with the discharge instructions and disposition.
[2018-05-11] MEDS ORDERED: Sodium Chloride 0.9% 1,000 ML ONE ×2 (02:23→04:27)
[2018-05-11 02:36] LABS: BASO % 0.5 % (0.0-2.0); EOS % 0.4 % (0.0-4.0); HEMOGLOBIN 13.7 g/dL (11.0-16.0); LYMPH # 1.2 K/uL (1.0-4.3); LYMPH % 13.6 % (20.0-40.0); MEAN CELL VOLUME 95.5 fL (81.0-99.0); MEAN CORPUSCULAR HEMOGLOBIN 32.7 pg (27.0-31.0); MEAN CORPUSCULAR HGB CONC 34.3 g/dL (33.0-37.0); MEAN PLATELET VOLUME 8.4 fL (7.2-11.7); MONO # 0.6 K/uL (0.0-0.8); MONO % 6.9 % (0.0-10.0); NEUT # 6.7 K/uL (1.8-7.0); NEUT % 78.6 % (50.0-75.0); RBC 4.2 Mil/uL (3.80-5.20); RED CELL DISTRIBUTION WIDTH 13.7 % (11.5-14.5); WHITE BLOOD COUNT 8.6 K/uL (4.8-10.8)
[2018-05-11 02:45] LABS: ALB/GLOB RATIO 1.4 (1.0-2.1); ALBUMIN 4.6 g/dL (3.5-5.0); ALT/SGPT 35 U/L (9-52); AST/SGOT 36 U/L (14-36); BLOOD UREA NITROGEN 12 mg/dL (7-17); GFR NON-AFRICAN AMERICAN > 60; LIPASE 102 U/L (23-300)
[2018-05-11 02:55] LABS: SQUAMOUS EPITHIAL 26 /hpf (0-5); URINE BACTERIA RARE (<OCC); URINE BILIRUBIN 1+ (NEGATIVE); URINE BLOOD NEGATIVE (NEGATIVE); URINE CLARITY Hazy (Clear); URINE COLOR Amber (YELLOW); URINE GLUCOSE (UA) NORMAL (Normal); URINE LEUKOCYTE ESTERASE NEG Leu/uL (Negative); URINE PROTEIN 3+ mg/dL (NEGATIVE)
[2018-05-11 02:57] LABS: HCG,QUALITATIVE URINE NEGATIVE (NEGATIVE)
[2018-05-11] MEDS ORDERED: Potassium Chloride 20 mEq/15 ml LIQ UD PO STA (03:02)
[2018-05-11] MEDS ORDERED: Potassium Chloride 20 mEq/15 ml LIQ UD ONE (03:28)
[2018-05-11 03:45] LABS: VENOUS BLOOD GAS PCO2 44 mmHg (40-60); VENOUS BLOOD GAS PO2 59 mm/Hg (30-55)
[2018-05-11 04:20] VITALS: RESP 20
[2018-05-11 06:16] VITALS: BP 128/78; PULSE 88
== END 2018-05-11 05:15 | disposition home or self-care (01) ==
LOC: C.ER 01:35
DX: K52.9 Noninfective gastroenteritis and colitis, unspecified (principal); E10.22 Type 1 diabetes mellitus with diabetic chronic kidney disease; N18.9 Chronic kidney disease, unspecified; Z79.4 Long term (current) use of insulin; Z87.442 Personal history of urinary calculi; Z90.49 Acquired absence of other specified parts of digestive tract
CPT/HCPCS: 80053; 81001; 82009; 82803; 82948; 83690; 84703; 85025; 96361; 96374; 96375; 99285; J1885; J2270; J2765; J7030

== ENCOUNTER 2018-05-17 00:11 | Emergency (ER) | payer OTHER ==
[2018-05-17 00:11] VITALS: BMI 28.3
[2018-05-17 00:24] VITALS: O2SAT 98
[2018-05-17] MEDS ORDERED: Sodium Chloride 0.9% 1,000 ML ONE (00:44)
[2018-05-17] MEDS: Sodium Chloride 0.9% 1,000 ML IV ONE (00:53)
[2018-05-17 00:54] LABS: BASO % 0.5 % (0.0-2.0); EOS % 0.2 % (0.0-4.0); HEMOGLOBIN 13.2 g/dL (11.0-16.0); LYMPH # 1.8 K/uL (1.0-4.3); LYMPH % 17.4 % (20.0-40.0); MEAN CELL VOLUME 94.1 fL (81.0-99.0); MEAN CORPUSCULAR HEMOGLOBIN 33.2 pg (27.0-31.0); MEAN CORPUSCULAR HGB CONC 35.3 g/dL (33.0-37.0); MEAN PLATELET VOLUME 7.8 fL (7.2-11.7); MONO # 0.7 K/uL (0.0-0.8); NEUT # 7.7 K/uL (1.8-7.0); NEUT % 74.9 % (50.0-75.0); NRBC % 0.1 % (0.0-2.0); RBC 3.98 Mil/uL (3.80-5.20); RED CELL DISTRIBUTION WIDTH 13.7 % (11.5-14.5); WHITE BLOOD COUNT 10.3 K/uL (4.8-10.8)
[2018-05-17 01:02] LABS: SQUAMOUS EPITHIAL 10 /hpf (0-5); URINE BILIRUBIN NEGATIVE (NEGATIVE); URINE BLOOD NEGATIVE (NEGATIVE); URINE CLARITY Hazy (Clear); URINE COLOR Yellow (YELLOW); URINE GLUCOSE (UA) NORMAL (Normal); URINE LEUKOCYTE ESTERASE NEG Leu/uL (Negative); URINE PROTEIN 2+ mg/dL (NEGATIVE); URINE UROBILINOGEN NORMAL mg/dL (0.2-1.0)
[2018-05-17 01:12] LABS: VENOUS BLOOD GAS BASE EXCESS 4.1 mmol/L (0.0-2.0); VENOUS BLOOD GAS PCO2 41 mmHg (40-60); VENOUS BLOOD GAS PO2 61 mm/Hg (30-55); VENOUS BLOOD PH 7.45 (7.32-7.43)
[2018-05-17 01:25] LABS: ALB/GLOB RATIO 1.5 (1.0-2.1); ALBUMIN 4.1 g/dL (3.5-5.0); ALT/SGPT 26 U/L (9-52); AST/SGOT 33 U/L (14-36); BLOOD UREA NITROGEN 11 mg/dL (7-17); CALCIUM 8.3 mg/dl (8.6-10.4); GFR NON-AFRICAN AMERICAN > 60; LIPASE 77 U/L (23-300)
--- NOTE | 2018-05-17 02:36 | C.PDOC ---
History Of Present Illness 22 year old female presents to the ED c/o abdominal pain associated with several episodes of vomiting for the past 1 day. Patient has history of type 1 diabetes and is complaint with her medications. Patient has multiple prior visits to the ED for similar complaints. Patient denies fever, chills, diarrhea, back pain, dysuria, hematuria, recent travel, sick contacts. Time Seen by Provider: 05/17/18 00:28 Chief Complaint (Nursing): Abdominal Pain History Per: Patient History/Exam Limitations: clinical condition Onset/Duration Of Symptoms: Days (1) Current Symptoms Are (Timing): Still Present Location Of Pain/Discomfort: Diffuse Quality Of Discomfort: "Pain" Associated Symptoms: Vomiting. denies: Nausea, Diarrhea, Constipation Recent travel outside of the [place]: No Additional History Per: Patient Abnormal Vaginal Bleeding: No Past Medical History Reviewed: Historical Data, Nursing Documentation, Vital Signs Vital Signs: Last Vital Signs Temp 98.4 F 05/17/18 00:19 Pulse 114 H 05/17/18 00:19 Resp 20 05/17/18 00:19 BP 173/104 H 05/17/18 00:19 Pulse Ox 98 05/17/18 00:19 - Medical History PMH: Asthma, Diabetes (type 1), Gall Bladder Disease (CHOLECYSTECTOMY), Kidney Stones, Chronic Kidney Disease Denies: Atrial Fibrillation, Cardia Arrhythmia, CHF, Hepatitis, HTN, Seizures, Sexually Transmitted Disease Surgical History: Cholecystectomy - [facility] Procedures DETOXIFICATION SERVICES FOR SUBSTANCE ABUSE TREATMENT (02/19/17) FLUOROSCOPY OF SUPERIOR VENA CAVA, GUIDANCE (05/11/16) GROUP KITCHEN CLEANER FOR SUBSTANCE ABUSE TREATMENT, PSYCHOEDUCATION (02/19/17) GROUP KITCHEN CLEANER FOR SUBSTANCE ABUSE, COGNITIVE BEHAVIORAL (02/19/17) INDIV PSYCHOTHERAPY FOR SUBSTANCE ABUSE TREATMENT, SUPPORT (02/19/17) INDIV PSYCHOTHERAPY FOR SUBSTANCE ABUSE, COGNITIV BEHAVIORAL (02/19/17) INDIV PSYCHOTHERAPY FOR SUBSTANCE ABUSE, PSYCHOEDUCATION (02/19/17) INFLUENZA VACCINATION (04/18/14) INJECT INSULIN (02/05/15) INJECT/INFUSE NEC (02/05/15) INSERTION OF INFUSION DEV INTO SUP VENA CAVA, PERC APPROACH (05/11/16) INTRODUCTION OF SERUM/TOX/VACCINE INTO MUSCLE, PERC APPROACH (04/11/16) RELEASE PERITONEUM, PERCUTANEOUS ENDOSCOPIC APPROACH (09/24/16) RESECTION OF GALLBLADDER, PERCUTANEOUS ENDOSCOPIC APPROACH (09/24/16) ROBOTIC ASSISTED PROCEDURE OF TRUNK, PERC ENDO APPROACH (09/24/16) ULTRASONOGRAPHY OF RIGHT UPPER EXTREMITY VEINS, GUIDANCE (05/11/16) Family History: States: Unknown Family Hx - Social History Hx Tobacco Use: No Hx Alcohol Use: Yes Hx Substance Use: No - Immunization History Hx Tetanus Toxoid Vaccination: Yes Hx Influenza Vaccination: Yes Hx Pneumococcal Vaccination: Yes Review Of Systems Constitutional: Negative for: Fever, Chills Cardiovascular: Negative for: Chest Pain Respiratory: Negative for: Shortness of Breath Gastrointestinal: Positive for: Vomiting, Abdominal Pain. Negative for: Nausea, Diarrhea Genitourinary: Negative for: Dysuria, Hematuria Musculoskeletal: Negative for: Back Pain Skin: Negative for: Rash Neurological: Negative for: Weakness, Numbness Physical Exam - Physical Exam Appears: Non-toxic, No Acute Distress Skin: Normal Color, Warm, Dry Head: Atraumatic, Normacephalic Eye(s): bilateral: Normal Inspection Oral Mucosa: Moist Neck: Normal ROM, Supple Chest: Symmetrical Cardiovascular: Rhythm Regular Respiratory: Normal Breath Sounds, No Rales, No Rhonchi, No Wheezing Gastrointestinal/Abdominal: Soft, Tenderness (mild diffuse ), No Guarding, No Rebound Extremity: Normal ROM, No Tenderness, No Swelling Neurological/Psych: Oriented x3, Normal Speech, Normal Cognition Gait: Steady ED Course And Treatment - Laboratory Results Result Diagrams: 05/17/18 00:51 05/17/18 00:51 O2 Sat by Pulse Oximetry: 98 (ON RA) Pulse Ox Interpretation: Normal - CT Scan/US Ct abd/pelvis Other Rad Studies (CT/US): Read By Radiologist, Radiology Report Reviewed CT/US Interpretation: CT SCAN OF THE ABDOMEN AND PELVIS WITHOUT ORAL OR IV CONTRAST. CLINICAL INDICATION: Right flank pain. TECHNIQUE: Axial and reformatted sagittal and coronal images of the abdomen pelvis obtained without IV contrast administration. COMPARISON: 03/19/2018. FINDINGS: The visualized lung bases are unremarkable. Mild enlarged fatty unenhanced liver. Cholecystectomy and nondilated extrahepatic biliary system. Normal unenhanced spleen. Normal pancreas. . Normal bilateral adrenal glands. Normal size of the right kidney. There is no right renal mass. 3 mm right renal nonobstructing stone. There is no right hydronephrosis. Normal visualized right ureter. Normal size of the left kidney. There is no left renal mass. There are no left renal calculi. There is no left hydronephrosis. Normal visualized left ureter. Normal visualized stomach. Normal small intestine. Uncomplicated diverticulosis of the colon. The appendix is visualized and appears normal. There is no demonstrated peritoneal fluid. Normal abdominal aorta. Normal inferior vena cava. Normal retroperitoneum. . Mild diffuse thickening of the urinary bladder. There is no pelvic mass lesion or lymphadenopathy. There is n o pelvic fluid. . Normal abdominal wall. Normal osseous structures. IMPRESSION: Mild diffuse thickening of the wall of the bladder. Underdistention versus mild cystitis. Nonobstructing right nephrolithiasis. Unchanged exam. . Electronically signed on May 17, 2018 2:15:08 AM EST by: Carmela Mcknight M.D., Certified by JENNY, K, Neuroradiology Medical Decision Making Medical Decision Making: Plan: * VBG * CT abd/pelvis * Labs * Pepcid 20 mg IVP * IV fluids * Toradol 30 mg IVP * Zofran 8 mg IVP * Urine culture * UA Patient states she feels better after the medications. Disposition - Disposition Referrals: [facility] Edwin Bowen, [Non-Staff] - Disposition: HOME/ ROUTINE Disposition Time: 02:20 Condition: IMPROVED Additional Instructions: BRIAN LIU, thank you for letting us take care of you today. The emergency medical care you received today was directed at your acute symptoms. If you were prescribed any medication, please fill it and take as directed. It may take several days for your symptoms to resolve. Return to the Emergency Department if your symptoms worsen, do not improve, or if you have any other problems. Please contact your doctor or call one of the physicians/clinics you have been referred to that are listed on the Patient Visit Information form that is included in your discharge packet. Bring any paperwork you were given at discharge with you along with any medications you are taking to your follow up visit. Our treatment cannot replace ongoing medical care by a primary care provider outside of the emergency department. Thank you for allowing the [facility] team to be part of your care today. Follow up with your primary care doctor in 2-3 days for re-evaluation and further management. Prescriptions: Omeprazole Magnesium [Prilosec Otc] 20 mg PO DAILY #14 tablet. Instructions: Acute Abdomen (Belly Pain), Adult (DC) Forms: [employer] (Gibraltarian) - Clinical Impression Clinical Impression: Gastritis - Scribe Statement The provider has reviewed the documentation as recorded by the Scribe Yobani Nolen All medical record entries made by the Scribe were at my direction and personally dictated by me. I have reviewed the chart and agree that the record accurately reflects my personal performance of the history, physical exam, medical decision making, and the department course for this patient. I have also personally directed, reviewed, and agree with the discharge instructions and disposition.
[2018-05-17 02:41] VITALS: BP 149/84; PULSE 87; RESP 14; TEMP 99
--- NOTE | 2018-05-17 09:39 | CT ---
Date of service: 05/17/2018 PROCEDURE: CT Abdomen and Pelvis without intravenous contrast HISTORY: diffuse abdominal pain with right flank pain COMPARISON: None. TECHNIQUE: Technique. Contrast dose: Radiation dose: Total exam DLP = 1091.29 mGy-cm. This CT exam was performed using one or more of the following dose reduction techniques: Automated exposure control, adjustment of the mA and/or kV according to patient size, and/or use of iterative reconstruction technique. FINDINGS: LOWER THORAX: Unremarkable. LIVER: Unremarkable. No gross lesion or ductal dilatation. GALLBLADDER AND BILE DUCTS: Unremarkable. PANCREAS: Unremarkable. No gross lesion or ductal dilatation. SPLEEN: Unremarkable. ADRENALS: Unremarkable. No mass. KIDNEYS AND URETERS: Punctate right renal calculus. VASCULATURE: Unremarkable. No aortic aneurysm. No aortic atherosclerotic calcification or mural plaque present. BOWEL: Unremarkable. No obstruction. No gross mural thickening. APPENDIX: Unremarkable. Normal appendix. PERITONEUM: Unremarkable. No free fluid. No free air. LYMPH NODES: Unremarkable. No enlarged lymph nodes. BLADDER: Unremarkable. REPRODUCTIVE: Unremarkable. BONES: No acute fracture. OTHER FINDINGS: None. IMPRESSION: Punctate right renal calculus.No hydronephrosis.
== END 2018-05-17 02:41 | disposition home or self-care (01) ==
LOC: C.ER 00:11
DX: K29.70 Gastritis, unspecified, without bleeding (principal)
CPT/HCPCS: 74176; 80053; 81001; 82009; 82803; 82948; 83690; 85025; 87086; 96361; 96374; 96375; 99284; J1885; J2405; J7030

== ENCOUNTER 2018-05-28 10:16 | Emergency (ER) | payer OTHER ==
[2018-05-28 10:27] VITALS: BMI 28.6
[2018-05-28] MEDS ORDERED: Sodium Chloride 0.9% 1,000 ML IV ONE ×4 (10:41→11:53)
[2018-05-28] MEDS ORDERED: Sodium Chloride 0.9% 1,000 ML ONE (10:43)
[2018-05-28 10:51] LABS: BASO # 0.1 K/uL (0.0-0.2); BASO % 0.3 % (0.0-2.0); LYMPH # 0.5 K/uL (1.0-4.3); LYMPH % 2.6 % (20.0-40.0); MEAN CELL VOLUME 94.3 fL (81.0-99.0); MEAN CORPUSCULAR HEMOGLOBIN 32.5 pg (27.0-31.0); MEAN CORPUSCULAR HGB CONC 34.5 g/dL (33.0-37.0); MEAN PLATELET VOLUME 7.5 fL (7.2-11.7); MONO # 0.8 K/uL (0.0-0.8); MONO % 4.6 % (0.0-10.0); NEUT # 16.3 K/uL (1.8-7.0); NEUT % 92.5 % (50.0-75.0); PLATELET COUNT 258 K/uL (130-400); RBC 4.29 Mil/uL (3.80-5.20); RED CELL DISTRIBUTION WIDTH 13.7 % (11.5-14.5); WHITE BLOOD COUNT 17.7 K/uL (4.8-10.8)
[2018-05-28] MEDS ORDERED: Sodium Chloride 0.9% 250 ML IV ONE (10:51)
[2018-05-28 11:00] LABS: VENOUS BLOOD GAS BASE EXCESS 5.2 mmol/L (0.0-2.0); VENOUS BLOOD GAS PCO2 39 mmHg (40-60); VENOUS BLOOD GAS PO2 42 mm/Hg (30-55); VENOUS BLOOD PH 7.48 (7.32-7.43)
[2018-05-28 11:05] LABS: ALB/GLOB RATIO 1.4 (1.0-2.1); ALBUMIN 4.4 g/dL (3.5-5.0); ALT/SGPT 34 U/L (9-52); AST/SGOT 47 U/L (14-36); BLOOD UREA NITROGEN 6 mg/dL (7-17); GFR NON-AFRICAN AMERICAN > 60
[2018-05-28 11:11] LABS: BANDS 2 % (0-2); LYMPHOCYTE 3 % (20-40); MONOCYTE 3 % (0-10); NEUTROPHIL 92 % (50-75); TOTAL CELLS COUNTED 100
[2018-05-28 11:12] LABS: ANISOCYTOSIS SLIGHT; PLATELET ESTIMATE NORMAL (NORMAL)
[2018-05-28 11:32] VITALS: RESP 16
[2018-05-28 12:40] LABS: SQUAMOUS EPITHIAL 1 /hpf (0-5); URINE BILIRUBIN NEGATIVE (NEGATIVE); URINE BLOOD 2+ (NEGATIVE); URINE CLARITY Clear (Clear); URINE COLOR Yellow (YELLOW); URINE GLUCOSE (UA) 3+ mg/dL (Normal); URINE LEUKOCYTE ESTERASE NEG Leu/uL (Negative); URINE PROTEIN 2+ mg/dL (NEGATIVE); URINE UROBILINOGEN NORMAL mg/dL (0.2-1.0)
[2018-05-28 13:41] VITALS: BP 108/79; PULSE 109; TEMP 98.2; O2SAT 98
--- NOTE | 2018-05-28 14:50 | C.PDOC ---
History Of Present Illness 22 y/o female presents to the ER complaining of nausea and vomiting which has been present for the past 2 days. Patient states that she has history of IDDM and she is compliant with her medications. Patient denies having fever, chills, abdominal pain, dysuria, and hematuria. Of note, patient is well known to ER as she has visited ER for multiple times for same complaint. Time Seen by Provider: 05/28/18 10:37 Chief Complaint (Nursing): Abdominal Pain History Per: Patient History/Exam Limitations: no limitations Onset/Duration Of Symptoms: Days Current Symptoms Are (Timing): Still Present Severity: Moderate Past Medical History Reviewed: Historical Data, Nursing Documentation, Vital Signs Vital Signs: Last Vital Signs Temp 98.2 F 05/28/18 13:40 Pulse 109 H 05/28/18 13:40 Resp 16 05/28/18 13:40 BP 108/79 05/28/18 13:40 Pulse Ox 98 05/28/18 13:40 - Medical History PMH: Asthma, Diabetes (type 1), Gall Bladder Disease (CHOLECYSTECTOMY), Kidney Stones, Chronic Kidney Disease Denies: Atrial Fibrillation, Cardia Arrhythmia, CHF, Hepatitis, HTN, Seizures, Sexually Transmitted Disease Surgical History: Cholecystectomy - [facility] Procedures DETOXIFICATION SERVICES FOR SUBSTANCE ABUSE TREATMENT (02/19/17) FLUOROSCOPY OF SUPERIOR VENA CAVA, GUIDANCE (05/11/16) GROUP MANAGING COGNITIVE ENGINEER FOR SUBSTANCE ABUSE TREATMENT, PSYCHOEDUCATION (02/19/17) GROUP MANAGING COGNITIVE ENGINEER FOR SUBSTANCE ABUSE, COGNITIVE BEHAVIORAL (02/19/17) INDIV PSYCHOTHERAPY FOR SUBSTANCE ABUSE TREATMENT, SUPPORT (02/19/17) INDIV PSYCHOTHERAPY FOR SUBSTANCE ABUSE, COGNITIV BEHAVIORAL (02/19/17) INDIV PSYCHOTHERAPY FOR SUBSTANCE ABUSE, PSYCHOEDUCATION (02/19/17) INFLUENZA VACCINATION (04/18/14) INJECT INSULIN (02/05/15) INJECT/INFUSE NEC (02/05/15) INSERTION OF INFUSION DEV INTO SUP VENA CAVA, PERC APPROACH (05/11/16) INTRODUCTION OF SERUM/TOX/VACCINE INTO MUSCLE, PERC APPROACH (04/11/16) RELEASE PERITONEUM, PERCUTANEOUS ENDOSCOPIC APPROACH (09/24/16) RESECTION OF GALLBLADDER, PERCUTANEOUS ENDOSCOPIC APPROACH (09/24/16) ROBOTIC ASSISTED PROCEDURE OF TRUNK, PERC ENDO APPROACH (09/24/16) ULTRASONOGRAPHY OF RIGHT UPPER EXTREMITY VEINS, GUIDANCE (05/11/16) Family History: States: No Known Family Hx - Social History Hx Tobacco Use: No Hx Alcohol Use: Yes Hx Substance Use: No - Immunization History Hx Tetanus Toxoid Vaccination: Yes Hx Influenza Vaccination: Yes Hx Pneumococcal Vaccination: Yes Review Of Systems Except As Marked, All Systems Reviewed And Found Negative. Constitutional: Negative for: Fever, Chills Gastrointestinal: Positive for: Nausea, Vomiting. Negative for: Abdominal Pain Genitourinary: Negative for: Dysuria, Frequency, Hematuria Physical Exam - Physical Exam Appears: Other (actively vomiting) Skin: Normal Color, Warm, Dry Head: Atraumatic, Normacephalic Eye(s): bilateral: Normal Inspection Nose: Normal Oral Mucosa: Moist Neck: Supple Chest: Symmetrical Cardiovascular: Rhythm Regular Respiratory: Normal Breath Sounds, No Rales, No Rhonchi, No Wheezing Gastrointestinal/Abdominal: Soft, No Tenderness, No Guarding, No Rebound Neurological/Psych: Oriented x3, Normal Speech ED Course And Treatment - Laboratory Results Result Diagrams: 05/28/18 10:46 05/28/18 10:46 O2 Sat by Pulse Oximetry: 98 (RA) Pulse Ox Interpretation: Normal Medical Decision Making Medical Decision Making: Plan: --Labs --UA --IV Fluids --Toradol IV --Zofran IV --Pepcid IV --Reglan IV Updates: On re-evaluation, patient feels better. Patient is no longer vomiting. Patient has been discharged and instructed to follow up with PMD in 2-3 days. Disposition - Disposition Referrals: [facility], [Non-Staff] - Disposition: HOME/ ROUTINE Disposition Time: 13:20 Condition: IMPROVED Additional Instructions: BRIAN LIU, thank you for letting us take care of you today. The emergency medical care you received today was directed at your acute symptoms. If you were prescribed any medication, please fill it and take as directed. It may take several days for your symptoms to resolve. Return to the Emergency Department if your symptoms worsen, do not improve, or if you have any other problems. Please contact your doctor or call one of the physicians/clinics you have been referred to that are listed on the Patient Visit Information form that is included in your discharge packet. Bring any paperwork you were given at discharge with you along with any medications you are taking to your follow up visit. Our treatment cannot replace ongoing medical care by a primary care provider outside of the emergency department. Thank you for allowing the [facility] team to be part of your care today. Follow up with your primary care doctor in 2-3 days for re-evaluation and further management. Instructions: Hyperglycemia, Adult (DC), The ABCs of Diabetes Forms: [employer] (Slovenian) - Clinical Impression Clinical Impression: Hyperglycemia, Vomiting - Scribe Statement The provider has reviewed the documentation as recorded by the Nasra Haas Provider Attestation: All medical record entries made by the Nasra were at my direction and personally dictated by me. I have reviewed the chart and agree that the record accurately reflects my personal performance of the history, physical exam, medical decision making, and the department course for this patient. I have also personally directed, reviewed, and agree with the discharge instructions and disposition.
== END 2018-05-28 13:40 | disposition home or self-care (01) ==
LOC: C.ER 10:16
DX: E10.65 Type 1 diabetes mellitus with hyperglycemia (principal); Z79.4 Long term (current) use of insulin
CPT/HCPCS: 80053; 81001; 82009; 82803; 82948; 85025; 96374; 96375; 99284; J1885; J2405; J2765; J7030

== ENCOUNTER 2018-06-24 14:13 | Emergency (ER) | payer OTHER ==
[2018-06-24 14:14] VITALS: BMI 28.6
--- NOTE | 2018-06-24 14:50 | C.PDOC ---
History Of Present Illness RECUR HYPEREMESIS SINCE YEST. BILIOUS. COMPLIANT W DM MEDS. MULT PREV ER VISITS FOR SAME, PS COMPLIANT W PMD FU BUT STATES DOES NOT RECEIVE ANTIEMETIC RX EXAM MILD DIST HEENT ANICTERIC, MMM ABD SOFT NT ND NO R/G SKIN GOOD TURGOR PSYCH CALM COOPERATIVE REMAINDER NEG MDM PER RN, PT OBSERVED TO SELF INDUCE VOMITING. Time Seen by Provider: 06/24/18 14:37 History Per: Patient History/Exam Limitations: no limitations Onset/Duration Of Symptoms: Days Current Symptoms Are (Timing): Still Present Severity: Moderate Past Medical History Reviewed: Historical Data, Nursing Documentation, Vital Signs - Medical History PMH: Asthma, Diabetes (type 1), Gall Bladder Disease (CHOLECYSTECTOMY), Kidney Stones, Chronic Kidney Disease Denies: Atrial Fibrillation, Cardia Arrhythmia, CHF, Hepatitis, HTN, Seizure s, Sexually Transmitted Disease Surgical History: Cholecystectomy - [facility] Procedures DETOXIFICATION SERVICES FOR SUBSTANCE ABUSE TREATMENT (02/19/17) FLUOROSCOPY OF SUPERIOR VENA CAVA, GUIDANCE (05/11/16) GROUP OBSERVATORY DIRECTOR FOR SUBSTANCE ABUSE TREATMENT, PSYCHOEDUCATION (02/19/17) GROUP OBSERVATORY DIRECTOR FOR SUBSTANCE ABUSE, COGNITIVE BEHAVIORAL (02/19/17) INDIV PSYCHOTHERAPY FOR SUBSTANCE ABUSE TREATMENT, SUPPORT (02/19/17) INDIV PSYCHOTHERAPY FOR SUBSTANCE ABUSE, COGNITIV BEHAVIORAL (02/19/17) INDIV PSYCHOTHERAPY FOR SUBSTANCE ABUSE, PSYCHOEDUCATION (02/19/17) INFLUENZA VACCINATION (04/18/14) INJECT INSULIN (02/05/15) INJECT/INFUSE NEC (02/05/15) INSERTION OF INFUSION DEV INTO SUP VENA CAVA, PERC APPROACH (05/11/16) INTRODUCTION OF SERUM/TOX/VACCINE INTO MUSCLE, PERC APPROACH (04/11/16) RELEASE PERITONEUM, PERCUTANEOUS ENDOSCOPIC APPROACH (09/24/16) RESECTION OF GALLBLADDER, PERCUTANEOUS ENDOSCOPIC APPROACH (09/24/16) ROBOTIC ASSISTED PROCEDURE OF TRUNK, PERC ENDO APPROACH (09/24/16) ULTRASONOGRAPHY OF RIGHT UPPER EXTREMITY VEINS, GUIDANCE (05/11/16) Family History: States: No Known Family Hx - Social History Hx Tobacco Use: No Hx Alcohol Use: Yes Hx Substance Use: No - Immunization History Hx Tetanus Toxoid Vaccination: Yes Hx Influenza Vaccination: Yes Hx Pneumococcal Vaccination: Yes Review Of Systems Except As Marked, All Systems Reviewed And Found Negative. Constitutional: Negative for: Fever, Chills Gastrointestinal: Positive for: Nausea, Vomiting. Negative for: Abdominal Pain, Diarrhea Physical Exam - Physical Exam Appears: Other (mild distress) Skin: Normal Color, Warm, Dry, Other (good turgor ) Head: Atraumatic, Normacephalic Eye(s): bilateral: Other (anicteric) Oral Mucosa: Moist Cardiovascular: Rhythm Regular Respiratory: Normal Breath Sounds, No Rales, No Rhonchi, No Wheezing Gastrointestinal/Abdominal: Soft, No Tenderness, No Distention, No Guarding, No Rebound Neurological/Psych: Oriented x3, Normal Speech, Other (psych:calm, cooperative) ED Course And Treatment - Laboratory Results Result Diagrams: 06/24/18 15:23 06/24/18 15:23 Urine POC: Negative Progress - Re-Evaluation Re-evaluation Note: 06/24/18 16:15 NV RESOLVED NO RECUR VOMITING SINCE INITIAL EVAL VSS. PT REQUESTING DC - Data Reviewed Data Reviewed: Lab, Old records Medical Decision Making Medical Decision Making: PER RN, PT OBSERVED TO SELF INDUCE VOMITI Disposition Counseled Patient/Family Regarding: Diagnosis, Need For Followup, Rx Given - Disposition Referrals: YOUR,PMD [Other] Disposition: HOME/ ROUTINE Disposition Time: 16:16 Condition: IMPROVED Prescriptions: Prochlorperazine [Compazine] 10 mg PO TID #12 tab Instructions: Nausea and Vomiting, Adult (DC) - Clinical Impression Clinical Impression: Type 1 diabetes, Hyperglycemia, Hyperemesis - Scribe Statement The provider has reviewed the documentation as recorded by the Nasra Haas Provider Attestation: All medical record entries made by the Nasra were at my direction and personally dictated by me. I have reviewed the chart and agree that the record accurately reflects my personal performance of the history, physical exam, medical decision making, and the department course for this patient. I have also personally directed, reviewed, and agree with the discharge instructions and disposition.
[2018-06-24] MEDS ORDERED: Sodium Chloride 0.9% 2,000 ML IV ONE (14:53)
[2018-06-24 15:04] VITALS: O2SAT 100
[2018-06-24] MEDS ORDERED: Sodium Chloride 0.9% 1,000 ML ONE (15:33)
[2018-06-24 15:41] LABS: BLOOD UREA NITROGEN 10 mg/dL (7-17); CALCIUM 8.4 mg/dl (8.6-10.4); GFR NON-AFRICAN AMERICAN > 60
[2018-06-24 15:54] LABS: BASO # 0.1 K/uL (0.0-0.2); BASO % 0.3 % (0.0-2.0); HEMOGLOBIN 15.2 g/dL (11.0-16.0); LYMPH # 0.9 K/uL (1.0-4.3); LYMPH % 5.4 % (20.0-40.0); MEAN CELL VOLUME 95.1 fL (81.0-99.0); MEAN CORPUSCULAR HEMOGLOBIN 32.6 pg (27.0-31.0); MEAN CORPUSCULAR HGB CONC 34.3 g/dL (33.0-37.0); MEAN PLATELET VOLUME 8.1 fL (7.2-11.7); MONO % 5.6 % (0.0-10.0); NEUT # 15.4 K/uL (1.8-7.0); NEUT % 88.7 % (50.0-75.0); PLATELET COUNT 350 K/uL (130-400); RBC 4.65 Mil/uL (3.80-5.20); RED CELL DISTRIBUTION WIDTH 14.3 % (11.5-14.5); WHITE BLOOD COUNT 17.3 K/uL (4.8-10.8)
[2018-06-24 16:17] LABS: BASOPHIL 1 % (0-2); LYMPHOCYTE 4 % (20-40); MONOCYTE 5 % (0-10); NEUTROPHIL 90 % (50-75); PLATELET ESTIMATE NORMAL (NORMAL); TOTAL CELLS COUNTED 100
[2018-06-24 16:18] VITALS: BP 146/98; PULSE 137; TEMP 99.1
== END 2018-06-24 16:25 | disposition home or self-care (01) ==
LOC: C.ER 14:13
DX: E10.65 Type 1 diabetes mellitus with hyperglycemia (principal); R11.10 Vomiting, unspecified
CPT/HCPCS: 80048; 81025; 82948; 85025; 96361; 96374; 99284; J2765; J7030